=== PATIENT | female | born 1955 | race Caucasian/White ===

== ENCOUNTER 2017-03-05 09:00 | Outpatient (CLI) | payer OTHER ==
[~2017-03-05] VITALS: Ht 162.6 cm; Wt 120.2 kg
[~2017-03-05 09:00] MED LIST: AMLO5TAB2 PO; B.AN1CAP PO; BETA1POW PO; CHOL100045 PO; CINN500C2 PO; CINN500C7 PO; CINNAMON PO; CITA20TA4 PO; FAMO1TAB21 PO; GINK60CA13 PO; HYDR-34 PO; HYDR1TAB66 PO; HYDR1TAB86 PO; LACT1CAP57 PO; MULT-608 PO; OMG1KC PO; OXYC-12 PO; TRIA1CAP4 PO; TURM500C PO; UBID100C8 PO; [UNRECOGNIZED DRUG - OTHER] PO
== END 2017-03-05 10:44 ==
LOC: PREOP 09:00
PROVIDERS: ATTEND Surgery
DX: Z01.818 Encounter for other preprocedural examination (principal); Z12.11 Encounter for screening for malignant neoplasm of colon

== ENCOUNTER 2017-03-06 10:57 | Day surgery (SDC) | payer OTHER ==
[~2017-03-06] VITALS: Ht 162.6 cm; Wt 120.2 kg
[2017-03-06] MEDS ORDERED: NS IV 1000 ML 1,000 ML IV STA (11:05)
[2017-03-06] MEDS ORDERED: NS IV 1000 ML 1,000 ML ONE (11:06)
[2017-03-06 11:23] VITALS: BP 135/66
--- NOTE | 2017-03-06 11:42 | Progress Note-Pre Operative ---
Pre-Operative Progress Note H&P Reviewed The H&P was reviewed, patient examined and no changes noted. Date H&P Reviewed: March 06, 2017 Time H&P Reviewed: 11:40 Pre-Operative Diagnosis: screening colonoscopy AARON PIKE DO March 06, 2017 11:42
[2017-03-06] MEDS ORDERED: proPOfol 200 MG/20 ML (DIPRIVAN) VIAL IV ONE (12:04)
--- NOTE | 2017-03-06 12:39 | Endoscopy Discharge Instruct ---
Endo Procedure/Findings Findings 1.: Diverticulosis 2.: Internal Hemorrhoids Discharge Instructions - Activity: You might feel a little sleepy until tomorrow. This is due to the medicine you received to relax you. Until tomorrow, you should: NOT drive a car, operate machinery or power tools. NOT drink any alcoholic beverages. NOT make any important decisions or sign importortant papers. Do not return to work until tomorrow, unless otherwise instructed. Resume previous activities tomorrow. Diet: Start by taking liquids. If you tolerate liquids, advance to solid food. Make appointment for one week, Instructions: 1.: Colonscopy in 10 years Notify Physician - If you experience excessive bleeding, unusual abdominal pain, fever, or chest pain, contact your doctor immediately. Phone number [phone] Follow-Up: - I have received and understand the above instructions and will call my doctor if I have any further questions. Patient Signature Date Nurse Signature Other (Relationship) AARON PIKE DO March 06, 2017 12:39
[2017-03-06 12:40] VITALS: BP 137/66
--- NOTE | 2017-03-06 12:40 | Progress Note-Post Operative ---
Post-Operative Progess Note Surgeon (s)/Director Chemistry (s) Surgeon AARON PIKE DO Director Chemistry: none Pre-Operative Diagnosis screening colonoscopy Post-Operative Diagnosis Diverticula Int Hemorrhoids Procedure & Operative Findings Date of Procedure 03/06/17 Procedure Preformed/Findings colonoscopy Anesthesia Type IV Sedation Estimated Blood Loss Estimated blood loss (mL): none Specimens/Packing Specimens Removed none Packing: none AARON PIKE DO March 06, 2017 12:40
--- NOTE | 2017-03-06 12:56 | OPERATIVE REPORT ---
DATE OF SERVICE: 03/06/2017 PREOPERATIVE DIAGNOSIS: Screening colonoscopy. POSTOPERATIVE DIAGNOSES: 1. Diverticula. 2. Internal hemorrhoids. PROCEDURE: Colonoscopy. SURGEON: Dr. Anderson. HOT TAMALE MAN: None. ANESTHESIA: IV sedation by the DIRECTOR GLOBAL DEVELOPMENT. SPECIMENS: None. BLOOD LOSS: None. FLUIDS: Per anesthesia. POSTOPERATIVE CONDITION: Stable. INDICATIONS FOR PROCEDURE: The patient is a 61-year-old female who needed a screening colonoscopy. FINDINGS: The patient had some diverticula, large ones in the descending and sigmoid colon, but had them all throughout the colon including transverse colon and right colon. She also had some internal hemorrhoids, probably grade 1. PROCEDURE NOTE: After informed consent was obtained, the patient was brought to the endoscopy suite, placed in the bed in the left lateral lithotomy decubitus position. She was administered IV sedation during the case and vitals monitored the entire time by the DIRECTOR GLOBAL DEVELOPMENT. The scope was inserted and pushed all the way up to about 160 cm, on the way in noted diverticula and took a picture of these. Pushed all the way to the cecum, took a picture of the appendiceal orifice, then able to get into the terminal ileum, took a picture and then slowly withdrew the scope, insufflating, looked circumferentially at the craig, looking at the cecum then up the ascending colon to the hepatic flexure and then down the transverse colon to the splenic flexure against a small diverticulum on the ascending colon and the transverse colon. We got to the hepatic flexure and then down the descending colon and into the sigmoid, again saw a large diverticulum throughout here. Continued down through here into the rectum, on retroflexion of the rectal vault saw some internal hemorrhoids; took a picture of these and then removed the scope. The patient tolerated the procedure and she was transferred to the recovery room in stable condition. Job ID: [id number] DocumentID: [id number] Dictated Date: 03/06/2017 12:36:04 Tool Technician Date: 03/06/2017 12:56:05 Dictated By: AARON ANDERSON DO
[2017-03-06 13:05] VITALS: BP 138/75
[2017-03-06 13:59] VITALS: BP 138/75
== END 2017-03-06 13:20 | disposition home or self-care (01) ==
LOC: ENDO 10:57
PROVIDERS: ATTEND Surgery
DX: Z12.11 Encounter for screening for malignant neoplasm of colon (principal); K57.32 Diverticulitis of large intestine without perforation or abscess without bleeding; K64.8 Other hemorrhoids; I25.10 Atherosclerotic heart disease of native coronary artery without angina pectoris; I10 Essential (primary) hypertension; E78.4 Other hyperlipidemia; Z79.899 Other long term (current) drug therapy

== ENCOUNTER → 2017-08-19 | Outpatient (CLI) | payer OTHER ==
--- NOTE | 2017-08-20 19:40 | Diagnostic Imaging Report ---
Bilateral screening mammogram 2D views with tomosynthesis The current study was also evaluated with a Computer Aided Detection (CAD) system. Indication: Screening. No current complaints stated on the questionnaire. COMPARISON: 08/14/16 FINDINGS: The breasts are composed of scattered fibroglandular densities. Stable intramammary lymph nodes in the upper outer aspect of the left breast is seen. Allowing for technique and positional differences, no suspicious change is seen. IMPRESSION: No significant change. ACR BI-RADS Category 2: Benign findings. Result letter will be mailed to the patient. Note: At least 10% of breast cancer is not imaged by mammography. Dictated by: Dictated on workstation # [id number]
== END ==
LOC: RAD 14:32
PROVIDERS: ATTEND Internal Medicine
DX: Z12.31 Encounter for screening mammogram for malignant neoplasm of breast (principal)
CPT/HCPCS: 77067

== ENCOUNTER → 2018-09-08 | Outpatient (CLI) | payer BC, OTHER ==
[~2018-09-08] MED LIST changes: -AMLO5TAB2 PO; +AMLO5TAB7 PO
--- NOTE | 2018-09-08 13:59 | Diagnostic Imaging Report ---
INDICATION: Routine screening. COMPARISON: 08/19/2017 and 08/14/2016. TECHNIQUE: 2D and 3D bilateral screening mammography was performed with CAD. FINDINGS: Scattered fibroglandular densities are identified bilaterally. A benign nodule in the upper outer left breast appears stable. No dominant mass or malignant-appearing microcalcifications are seen. The axillae are unremarkable. IMPRESSION: No mammographic features suspicious for malignancy are identified. ACR BI-RADS Category 2: Benign findings. Result letter will be mailed to the patient. Note: At least 10% of breast cancer is not imaged by mammography. Dictated by: Dictated on workstation # [id number]
== END ==
LOC: RAD 08:32
PROVIDERS: ATTEND Internal Medicine
DX: Z12.31 Encounter for screening mammogram for malignant neoplasm of breast (principal)
CPT/HCPCS: 77067

== ENCOUNTER 2018-11-02 20:50 | Outpatient (CLI) | payer BC | END 2018-11-03 06:00 | disposition home or self-care (01) | LOC: SLEEP 20:50 | PROVIDERS: ATTEND Nurse Practitioner Family | DX: G47.33 Obstructive sleep apnea (adult) (pediatric) (principal); G47.10 Hypersomnia, unspecified | CPT/HCPCS: 95810 ==

== ENCOUNTER 2018-12-03 20:29 | Outpatient (CLI) | payer BC ==
[~2018-12-03 20:29] MED LIST changes: -AMLO5TAB7 PO; +AMLO5TAB9 PO
== END 2018-12-04 06:22 | disposition home or self-care (01) ==
LOC: SLEEP 20:29
PROVIDERS: ATTEND Otolaryngology Otolaryngology/Facial Plastic Surgery
DX: G47.33 Obstructive sleep apnea (adult) (pediatric) (principal)
CPT/HCPCS: 95811

== ENCOUNTER → 2019-01-04 | Outpatient (CLI) | payer BC ==
--- NOTE | 2019-01-04 19:01 | Diagnostic Imaging Report ---
PROCEDURE: US Renal Bilateral. TECHNIQUE: Multiple Real-time grayscale images were obtained over the kidneys in various projections bilaterally. INDICATION: Chronic kidney disease. FINDINGS: The left kidney is surgically absent. The right kidney measures 11.3 x 6.2 x 5.4 cm. There is normal renal cortical thickness and echogenicity. There is no hydronephrosis, calculus, or mass. The bladder is normal in appearance. The IVC is not seen. IMPRESSION: Unremarkable sonographic appearance of the right kidney. Dictated by: Dictated on workstation # [id number]
== END ==
LOC: RAD 13:05
PROVIDERS: ATTEND Internal Medicine Nephrology
DX: I12.9 Hypertensive chronic kidney disease with stage 1 through stage 4 chronic kidney disease, or unspecified chronic kidney disease (principal); E11.22 Type 2 diabetes mellitus with diabetic chronic kidney disease; N18.4 Chronic kidney disease, stage 4 (severe); E11.65 Type 2 diabetes mellitus with hyperglycemia; R60.0 Localized edema; Z90.5 Acquired absence of kidney
CPT/HCPCS: 76770

== ENCOUNTER → 2019-10-04 | Outpatient (CLI) | payer BC ==
--- NOTE | 2019-10-04 13:00 | Diagnostic Imaging Report ---
INDICATION: Screening. The current study was also evaluated with a Computer Aided Detection (CAD) system. 3-D Tomographic imaging was also performed. Comparison made with prior examinations of 09/08/2018, 08/19/2017, and 08/14/2016. FINDINGS: There are scattered fibroglandular densities bilaterally. There are benign lymph nodes in the axilla. There are scattered benign-type calcifications. There is no dominant mass, spiculated lesion, or suspicious calcification identified. The skin and nipples are unremarkable. IMPRESSION: Benign. ACR BI-RADS Category 2: Benign findings. Result letter will be mailed to the patient. Note: At least 10% of breast cancer is not imaged by mammography. Dictated by: Dictated on workstation # [id number]
== END ==
LOC: RAD 11:07
PROVIDERS: ATTEND Internal Medicine
DX: Z12.31 Encounter for screening mammogram for malignant neoplasm of breast (principal)
CPT/HCPCS: 77067

== ENCOUNTER 2019-11-30 05:38 | Outpatient (CLI) | payer BC ==
[~2019-11-30] VITALS: Ht 162 cm; Wt 118.0 kg
[2019-11-30] MEDS ORDERED: FURO20TA4 PO (14:44)
[2019-11-30] MEDS ORDERED: LISI10TA2 PO (14:44)
[2019-11-30] MEDS ORDERED: ATOR20TA66 PO (14:44)
[2019-11-30] MEDS ORDERED: MIRA50TA PO (14:44)
[2019-11-30] MEDS ORDERED: CITA20TA9 PO (14:44)
== END 2019-11-30 14:51 | disposition home or self-care (01) ==
LOC: PREOP 05:38
PROVIDERS: ATTEND Specialist
DX: Z01.818 Encounter for other preprocedural examination (principal)

== ENCOUNTER 2019-12-03 05:56 | Day surgery (SDC) | payer BC ==
[~2019-12-03] VITALS: Ht 162 cm; Wt 118.0 kg
[~2019-12-03 05:56] MED LIST changes: +ATOR20TA66 PO; +CITA20TA9 PO; +FURO20TA4 PO; +LISI10TA2 PO; +MIRA50TA PO
[2019-12-03] MEDS ORDERED: LIDOCAINE PF 1% 2 ML VIAL IR PRN (06:15)
[2019-12-03] MEDS ORDERED: POVIDONE (BETADINE) OPHTH SOLN 5% 30 ML OP ONE (06:15)
[2019-12-03] MEDS ORDERED: MOXIFLOXACIN OPHTH SOLN 5 MG/ML 0.3 ML SYRINGE OP ONE (06:15)
[2019-12-03] MEDS ORDERED: TIMOLOL MALEATE 0.5% 5 ML (TIMOPTIC) BTL OU PRN (06:15)
[2019-12-03] MEDS: TETRACAINE 0.5% OPHTH SOLN 4 ML BTL (SINGLE DOSE ONLY) OU PRN ×4 (06:15→06:40)
[2019-12-03 06:20] VITALS: BP 169/82
[2019-12-03] MEDS: PHENYLEPHRINE 10% OPHTH (NEO-SYN) 5 ML BTL OU SCH ×3 (06:27→06:40)
[2019-12-03] MEDS: CYCLOPENTOLATE 1% (CYCLOGYL) 2 ML DROPS OP SCH ×3 (06:27→06:40)
[2019-12-03] MEDS ORDERED: acetaZOLAMIDE ER 500 MG CAP (DIAMOX SEQUELS) PO ONE (07:30)
--- NOTE | 2019-12-03 07:30 | Ophthalmologist Pre-Op Note ---
Pre-Operative Progress Note H&P Reviewed The H&P was reviewed, patient examined and no changes noted. Date H&P Reviewed: Dec 03, 2019 Time H&P Reviewed: 07:30 Pre-Op Dx Cataract, Right Eye RIRI MILLARD MD Dec 03, 2019 07:30
[2019-12-03] MEDS ORDERED: MIDAZOLAM 2 MG/2 ML (VERSED) VIAL ONE (07:31)
--- NOTE | 2019-12-03 07:53 | Ophthalmology Operative Report ---
Cataract removal/placement IOL PREOPERATIVE DIAGNOSIS: Cataract Right Eye POSTOPERATIVE DIAGNOSIS: Cataract Right Eye PROCEDURE: Cataract removal and placement of posterior chamber implant, right eye SURGEON: Jerad Millard ANESTHESIA: Topical with sedation COMPLICATIONS: None ESTIMATED BLOOD LOSS: Minimal DESCRIPTION OF PROCEDURE: After proper informed consent was obtained, the patient, a 64 female, was taken to the Operating Room and the right eye was anesthetized with tetracaine. The right eye was then prepped and draped in the usual manner. A wire lid speculum was placed. A paracentesis was made at the left hand position. Preservative free lidocaine was injected into the anterior chamber followed by viscoelastic. A clear corneal incision was made in the temporal position. A capsulorrhexis was preformed and the central nuclear and cortical material were removed. The posterior capsule was polished and Sammy 22.5 AU00T0 IOL was placed into the capsular bag. The residual viscoelastic was aspirated and balanced saline solution was injected into the anterior chamber. Moxifloxacin was injected into the anterior chamber. The wound was checked and found to be water tight. The patient tolerated the procedure well without complications. JERAD MILLARD MD Dec 03, 2019 07:53
[2019-12-03 08:00] VITALS: BP 175/85
--- NOTE | 2019-12-03 14:37 | Anesthesia-General Post-Op ---
MAC Patient Condition Mental Status/LOC: Same as Preop Cardiovascular: Satisfactory Nausea/Vomiting: Absent Respiratory: Satisfactory Pain: Controlled Complications: Absent Post Op Complications Complications None Follow Up Care/Instructions Patient Instructions None needed. Anesthesiology Discharge Order Discharge Order Patient was seen this morning after the procedure and she was doing well, no complaints, stable vital signs, no apparent adverse anesthesia problems. ABIMAEL MCDONALD DO Dec 03, 2019 14:37
== END 2019-12-03 08:00 | disposition home or self-care (01) ==
LOC: SDC 05:56
PROVIDERS: ATTEND Specialist
DX: E11.40 Type 2 diabetes mellitus with diabetic neuropathy, unspecified (principal); H25.11 Age-related nuclear cataract, right eye; K21.9 Gastro-esophageal reflux disease without esophagitis; G47.33 Obstructive sleep apnea (adult) (pediatric); I10 Essential (primary) hypertension; E78.5 Hyperlipidemia, unspecified; E78.00 Pure hypercholesterolemia, unspecified; F32.9 Major depressive disorder, single episode, unspecified; Z99.89 Dependence on other enabling machines and devices; Z79.899 Other long term (current) drug therapy; Z96.651 Presence of right artificial knee joint; Z96.652 Presence of left artificial knee joint; Z90.49 Acquired absence of other specified parts of digestive tract; Z80.0 Family history of malignant neoplasm of digestive organs

== ENCOUNTER 2019-12-17 06:23 | Day surgery (SDC) | payer BC ==
[~2019-12-17] VITALS: Ht 162 cm; Wt 118.0 kg
[2019-12-17 06:15] VITALS: BP 147/78
[2019-12-17] MEDS ORDERED: POVIDONE (BETADINE) OPHTH SOLN 5% 30 ML OP ONE (06:30)
[2019-12-17] MEDS ORDERED: LIDOCAINE PF 1% 2 ML VIAL IR PRN (06:30)
[2019-12-17] MEDS ORDERED: TIMOLOL MALEATE 0.5% 5 ML (TIMOPTIC) BTL OU PRN (06:30)
[2019-12-17] MEDS ORDERED: MOXIFLOXACIN OPHTH SOLN 5 MG/ML 0.3 ML SYRINGE OP ONE (06:30)
[2019-12-17] MEDS: TETRACAINE 0.5% OPHTH SOLN 4 ML BTL (SINGLE DOSE ONLY) OU PRN ×4 (06:31→06:47)
[2019-12-17] MEDS: PHENYLEPHRINE 10% OPHTH (NEO-SYN) 5 ML BTL OU SCH ×3 (06:38→06:47)
[2019-12-17] MEDS: CYCLOPENTOLATE 1% (CYCLOGYL) 2 ML DROPS OP SCH ×3 (06:38→06:47)
[2019-12-17] MEDS ORDERED: MIDAZOLAM 2 MG/2 ML (VERSED) VIAL ONE (06:51)
--- NOTE | 2019-12-17 06:59 | Ophthalmologist Pre-Op Note ---
Pre-Operative Progress Note H&P Reviewed The H&P was reviewed, patient examined and no changes noted. Date H&P Reviewed: Dec 17, 2019 Time H&P Reviewed: 06:59 Pre-Op Dx Cataract, Left Eye RIRI MILLARD MD Dec 17, 2019 06:59
--- NOTE | 2019-12-17 07:26 | Ophthalmology Operative Report ---
Cataract removal/placement IOL PREOPERATIVE DIAGNOSIS: Cataract Left Eye POSTOPERATIVE DIAGNOSIS: Cataract Left Eye PROCEDURE: Cataract removal and placement of posterior chamber implant, left eye SURGEON: Jerad Millard ANESTHESIA: Topical with sedation COMPLICATIONS: None ESTIMATED BLOOD LOSS: Minimal DESCRIPTION OF PROCEDURE: After proper informed consent was obtained, the patient, a 64 female, was taken to the Operating Room and the left eye was anesthetized with tetracaine. The left eye was then prepped and draped in the usual manner. A wire lid speculum was placed. A paracentesis was made at the left hand position. Preservative free lidocaine was injected into the anterior chamber followed by viscoelastic. A clear corneal incision was made in the temporal position. A capsulorrhexis was preformed and the central nuclear and cortical material were removed. The posterior capsule was polished and an Sammy 26.0 AU00T0 was placed into the capsular bag. The residual viscoelastic was aspirated and balanced saline solution was injected into the anterior chamber. Moxifloxacin was injected into the anterior chamber. The wound was checked and found to be water tight. The patient tolerated the procedure well without complications. JERAD MILLARD MD Dec 17, 2019 07:26
[2019-12-17] MEDS ORDERED: acetaZOLAMIDE ER 500 MG CAP (DIAMOX SEQUELS) PO ONE (07:30)
[2019-12-17 07:33] VITALS: BP 152/78
--- NOTE | 2019-12-17 14:22 | Anesthesia-General Post-Op ---
MAC Patient Condition Mental Status/LOC: Same as Preop Cardiovascular: Satisfactory Nausea/Vomiting: Absent Respiratory: Satisfactory Pain: Controlled Complications: Absent Post Op Complications Complications None Follow Up Care/Instructions Patient Instructions None needed. Anesthesiology Discharge Order Discharge Order Patient is doing well, no complaints, stable vital signs, no apparent adverse anesthesia problems. No complications reported per nursing. BERNARDO ADKINS CRNA Dec 17, 2019 14:22
== END 2019-12-17 07:33 | disposition home or self-care (01) ==
LOC: SDC 06:23
PROVIDERS: ATTEND Specialist
DX: E11.36 Type 2 diabetes mellitus with diabetic cataract (principal); H25.12 Age-related nuclear cataract, left eye; I10 Essential (primary) hypertension; G47.33 Obstructive sleep apnea (adult) (pediatric); K21.9 Gastro-esophageal reflux disease without esophagitis; E78.5 Hyperlipidemia, unspecified; E78.00 Pure hypercholesterolemia, unspecified; F32.9 Major depressive disorder, single episode, unspecified; Z99.89 Dependence on other enabling machines and devices; Z79.899 Other long term (current) drug therapy; Z80.0 Family history of malignant neoplasm of digestive organs

== ENCOUNTER → 2019-12-28 | Outpatient (CLI) | payer BC ==
[~2019-12-28] MED LIST changes: +CATHETER FLUSH 10 ML SYR IV PRN; +HOLD METFORMIN - RECEIVED CONTRAST 20 ML VIAL IV SCH; +IOHEXOL 350 MG/ML 100 ML (OMNIPAQUE 350) VIAL IV ONE; +NS 100 ML (IVPB) BAG IV ONE
--- NOTE | 2019-12-28 15:01 | Diagnostic Imaging Report ---
PROCEDURE: CT abdomen and pelvis with and without contrast. TECHNIQUE: Precontrast acquisitions were acquired through the abdomen and pelvis. Multiple contiguous axial images were obtained through the abdomen and pelvis after the administration of intravenous contrast. Auto Exposure Controls were utilized during the CT exam to meet ALARA standards for radiation dose reduction. INDICATION: Kidney disease, hematuria, hyperlipidemia. COMPARISON: There are no prior studies available for comparison. FINDINGS: The left kidney is not clearly evident. There are two calcified linear soft tissue densities measuring approximately 3 cm in length in the left renal fossa. These could represent a remnant of the left kidney.. If previous studies are available, they would be helpful for comparison. The right kidney is normal in size and does show excretion of contrast. There is no sign of a solid renal mass or for nephrolithiasis. The liver, spleen, pancreas and right adrenal gland are unremarkable. Left adrenal gland is not well visualized. The gallbladder is surgically absent. The stomach is partially filled with fluid and gas and difficult to assess. There is a large 4.4 x 5.9 cm soft tissue density in the diaphragmatic hiatus. Whether this is related to a hiatal hernia or paraesophageal hernia is not certain. If further study is desired, then an esophagram would be recommended. There is diverticulosis of the sigmoid and descending colon but there is no evidence for acute diverticulitis. The urinary bladder and uterus are grossly unremarkable. The appendix was not particularly well visualized but there are no indirect signs of acute appendicitis. There is no pelvic mass or free fluid collection evident either. There are surgical clips along the anterior abdominal wall near midline. These may be related to a prior hernia repair procedure. There is no sign of recurrent hernia in this area. The lung bases are clear. The heart is enlarged. The bone windows show no evidence for fracture or for destructive lesion. IMPRESSION: 1. There is no acute abnormality of the abdomen or pelvis. 2. The left kidney cannot be identified and is most likely surgically absent. The left adrenal gland may also be surgically absent. Correlation with patient's surgical history recommended. 3. The linear partially calcified soft tissue densities in the left renal fossa may be remnants of the left kidney.. If previous studies are available, they would be helpful for comparison. If there are no prior exams to demonstrate that these findings are stable, then at short-term (3 month) follow-up CT abdomen/pelvis exam should be obtained. 4. A large portion of the stomach has extended through the diaphragmatic hiatus. Whether this is due to a hiatal hernia or paraesophageal hernia is not certain. Recommendations as above. 5. There is diverticulosis of the sigmoid and descending colon without evidence for acute diverticulitis. 6. The gallbladder is surgically absent. There has also been repair of the anterior abdominal wall. Dictated by: Dictated on workstation # [id number]
== END ==
LOC: RAD 13:00
PROVIDERS: ATTEND Internal Medicine Hematology & Oncology
DX: N28.9 Disorder of kidney and ureter, unspecified (principal); E78.2 Mixed hyperlipidemia; K57.30 Diverticulosis of large intestine without perforation or abscess without bleeding; R31.9 Hematuria, unspecified; Z90.49 Acquired absence of other specified parts of digestive tract
CPT/HCPCS: 74178

== ENCOUNTER 2020-01-21 10:29 | Outpatient (RCR) | payer BC ==
[2019-12-23 16:01] LABS: BASOPHILS % (AUTO) 1 % (0-10); EOSINOPHILS # (AUTO) 0.2 10^3/uL (0.0-0.3); EOSINOPHILS % (AUTO) 2 % (0-10); HEMATOCRIT 35 % (35-52); HEMOGLOBIN 11.6 G/DL (11.5-16.0); LYMPHOCYTES # (AUTO) 2.1 X 10^3 (1.0-4.0); LYMPHOCYTES % (AUTO) 26 % (12-44); MEAN CORPUSCULAR HEMOGLOBIN 31 PG (25-34); MEAN CORPUSCULAR HGB CONC 34 G/DL (32-36); MEAN CORPUSCULAR VOLUME 94 FL (80-99); MEAN PLATELET VOLUME 9.6 FL (7.4-10.4); MONOCYTES # (AUTO) 0.7 X 10^3 (0.0-1.0); MONOCYTES % (AUTO) 9 % (0-12); NEUTROPHILS % (AUTO) 62 % (42-75); PLATELET COUNT 291 10^3/uL (130-400)
[2019-12-23 16:19] LABS: ALANINE AMINOTRANSFERASE < 6 U/L (0-55); ALKALINE PHOSPHATASE 120 U/L (40-136); BILIRUBIN,TOTAL 0.5 MG/DL (0.1-1.0); BUN/CREATININE RATIO 12; CALCIUM 9.1 MG/DL (8.5-10.1); CARBON DIOXIDE 29 MMOL/L (21-32); CHLORIDE 104 MMOL/L (98-107); CREATININE SERUM 1.47 MG/DL (0.60-1.30); GFR ESTIMATED 36; GLUCOSE 173 MG/DL (70-105); POTASSIUM 4.3 MMOL/L (3.6-5.0); SODIUM 139 MMOL/L (135-145)
[~2020-01-21 10:29] MED LIST changes: -CATHETER FLUSH 10 ML SYR IV PRN; -HOLD METFORMIN - RECEIVED CONTRAST 20 ML VIAL IV SCH; -IOHEXOL 350 MG/ML 100 ML (OMNIPAQUE 350) VIAL IV ONE; -NS 100 ML (IVPB) BAG IV ONE
== END 2020-03-22 | disposition home or self-care (01) ==
LOC: ONC 10:29
PROVIDERS: ATTEND Internal Medicine Hematology & Oncology
DX: D64.9 Anemia, unspecified (principal); R76.8 Other specified abnormal immunological findings in serum; R31.9 Hematuria, unspecified; N28.9 Disorder of kidney and ureter, unspecified; I65.23 Occlusion and stenosis of bilateral carotid arteries; E78.2 Mixed hyperlipidemia; I25.10 Atherosclerotic heart disease of native coronary artery without angina pectoris; K57.30 Diverticulosis of large intestine without perforation or abscess without bleeding; I10 Essential (primary) hypertension; Z79.84 Long term (current) use of oral hypoglycemic drugs; Z79.899 Other long term (current) drug therapy; E11.9 Type 2 diabetes mellitus without complications; I12.9 Hypertensive chronic kidney disease with stage 1 through stage 4 chronic kidney disease, or unspecified chronic kidney disease; N18.3 Chronic kidney disease, stage 3 (moderate); Z96.653 Presence of artificial knee joint, bilateral
CPT/HCPCS: 80053; 82570; 82784; 83883; 84155; 84156; 84165; 84166; 85025; 99213; 99214

== ENCOUNTER → 2020-10-05 | Outpatient (CLI) | payer BC ==
[~2020-10-05] MED LIST changes: +AMLO-250 PO; -AMLO5TAB9 PO
--- NOTE | 2020-10-05 13:12 | Diagnostic Imaging Report ---
INDICATION: Routine screening. COMPARISON is made with prior mammogram from 10/04/2019. 2-D and 3-D bilateral screening mammography was performed with CAD. Scattered fibroglandular densities are identified bilaterally. A circumscribed nodule in the upper outer left breast is noted at posterior depth consistent with an intraparenchymal lymph node. No spiculated mass or malignant appearing microcalcifications are seen. Axillae are unremarkable. IMPRESSION: BI-RADS Category 2 No mammographic features suspicious for malignancy are identified. ACR BI-RADS Category 2: Benign findings. Result letter will be mailed to the patient. Note: At least 10% of breast cancer is not imaged by mammography. Dictated by: Dictated on workstation # [id number]
== END ==
LOC: RAD 10:50
PROVIDERS: ATTEND Internal Medicine
DX: Z12.31 Encounter for screening mammogram for malignant neoplasm of breast (principal)
CPT/HCPCS: 77063; 77067

== ENCOUNTER → 2021-10-10 | Outpatient (CLI) | payer BC ==
[~2021-10-10] MED LIST changes: -LISI10TA2 PO; +LISI10TA25 PO
--- NOTE | 2021-10-10 13:16 | Diagnostic Imaging Report ---
INDICATION: Routine screening. COMPARISON: 10/05/2020 and 10/04/2019. TECHNIQUE: 2D and 3D bilateral screening mammography was performed with CAD. FINDINGS: Scattered fibroglandular densities are identified bilaterally. A benign nodule in the outer left breast at posterior depth is stable. No spiculated mass or malignant-appearing microcalcifications are seen. The left MLO view does have some motion artifact and should be repeated. The axillae are unremarkable. IMPRESSION: The left MLO view does have motion artifact and should be repeated. The study is otherwise unremarkable. Dictated by: Dictated on workstation # [id number]
== END ==
LOC: RAD 09:30
PROVIDERS: ATTEND Internal Medicine
DX: Z12.31 Encounter for screening mammogram for malignant neoplasm of breast (principal); I50.9 Heart failure, unspecified
CPT/HCPCS: 77063; 77067; 93306

== ENCOUNTER → 2021-10-17 | Outpatient (CLI) | payer BC ==
--- NOTE | 2021-10-17 15:46 | Diagnostic Imaging Report ---
INDICATION: Routine screening. COMPARISON: 10/05/2020 and 10/04/2019. TECHNIQUE: Unilateral left 2D and 3D screening mammography was performed with CAD. FINDINGS: A repeat left MLO view was performed. No motion artifact is identified on the current study. A benign nodule in the upper outer left breast is noted and appears stable. There is no mass or malignant-appearing microcalcifications. IMPRESSION: No mammographic features suspicious for malignancy are identified. ACR BI-RADS Category 2: Benign findings. Result letter will be mailed to the patient. Note: At least 10% of breast cancer is not imaged by mammography. Dictated by: Dictated on workstation # [id number]
== END ==
LOC: RAD 15:00
PROVIDERS: ATTEND Internal Medicine
DX: Z12.31 Encounter for screening mammogram for malignant neoplasm of breast (principal)
CPT/HCPCS: 77063

== ENCOUNTER → 2021-11-05 | Outpatient (CLI) | payer BC, MEDICARE ==
--- NOTE | 2021-11-05 09:25 | Diagnostic Imaging Report ---
INDICATION: Septic pulmonary embolism. Patient was administered 5.5 mCi technetium 99m MAA intravenously and imaging of the chest was performed in multiple obliquities. No ventilation scan was performed. There is homogeneous perfusion to both lungs. No pleural-based perfusion defects are identified. IMPRESSION: Normal perfusion lung scan. Dictated by: Dictated on workstation # [id number]
--- NOTE | 2021-11-05 10:02 | Diagnostic Imaging Report ---
INDICATION: Short of breath EXAMINATION: Two-view chest 11/05/2021 COMPARISON: 07/16/2015 FINDINGS: Two views of the chest There is a small hiatal hernia. The heart is prominent. Pulmonary vasculature unremarkable. Vague patchy airspace opacities at the lung base is likely atelectasis. Early infiltrate not excluded; correlate with symptoms. Remaining lungs appear clear. There is no pneumothorax. There are no effusions. IMPRESSION: 1. Vague scattered airspace opacities in the lower lungs possibly atelectasis with early infiltrate not excluded. Correlate with symptoms. Otherwise chronic changes as above. Dictated by: Dictated on workstation # [id number]
== END ==
LOC: CARD 09:00
PROVIDERS: ATTEND Internal Medicine
DX: I26.90 Septic pulmonary embolism without acute cor pulmonale (principal); R91.8 Other nonspecific abnormal finding of lung field
CPT/HCPCS: 71046; 78580; A9540

== ENCOUNTER → 2021-11-30 | Outpatient (CLI) | payer MEDICARE ==
[~2021-11-30] VITALS: Ht 162 cm; Wt 127.0 kg
[~2021-11-30] MED LIST changes: +REGADENOSON 0.4 MG/5 ML SYR (LEXISCAN) IV ONE
[2021-11-30] MEDS: CATHETER FLUSH 10 ML SYR IV PRN ×2 (07:35→08:43)
[2021-11-30 08:25] VITALS: BP 219/100
== END ==
LOC: CARD 07:45
PROVIDERS: ATTEND Internal Medicine Cardiovascular Disease
DX: R06.09 Other forms of dyspnea (principal)
CPT/HCPCS: 78452; 93017; A9502

== ENCOUNTER 2022-01-01 11:00 | Day surgery (SDC) | payer MEDICARE ==
[~2022-01-01] VITALS: Ht 165.1 cm; Wt 126.0 kg
[2022-01-01] VITALS (21 sets, daily range): BP systolic 84–174; BP diastolic 53–80
[2022-01-01 08:33] LABS: HEMATOCRIT 36 % (35-52); HEMOGLOBIN 11.9 g/dL (11.5-16.0); MEAN CORPUSCULAR HEMOGLOBIN 31 pg (25-34); MEAN CORPUSCULAR HGB CONC 33 g/dL (32-36); MEAN CORPUSCULAR VOLUME 95 fL (80-99); MEAN PLATELET VOLUME 9.7 fL (9.0-12.2); PLATELET COUNT 315 10^3/uL (130-400); WHITE BLOOD COUNT 8.1 10^3/uL (4.3-11.0)
[2022-01-01 08:52] LABS: ALANINE AMINOTRANSFERASE < 6 U/L (0-55); ALBUMIN 4.1 GM/DL (3.2-4.5); ALKALINE PHOSPHATASE 125 U/L (40-136); BILIRUBIN,TOTAL 0.6 MG/DL (0.1-1.0); BUN/CREATININE RATIO 13; CALCIUM 9.1 MG/DL (8.5-10.1); CARBON DIOXIDE 22 MMOL/L (21-32); CHLORIDE 104 MMOL/L (98-107); CHOLESTEROL 173 MG/DL (< 200); GFR ESTIMATED 35; GLUCOSE 168 MG/DL (70-105); HDL CHOLESTEROL 50 MG/DL (40-60); POTASSIUM 4.4 MMOL/L (3.6-5.0); SODIUM 138 MMOL/L (135-145); TOTAL PROTEIN 7.3 GM/DL (6.4-8.2); TRIGLYCERIDES 103 MG/DL (<150); VLDL CHOLESTEROL 21 MG/DL (5-40)
[~2022-01-01 11:00] MED LIST changes: +ACET325T38 PO; +AMLO-251 PO; +ASPIRIN 81 MG CHEW (CHILDREN'S ASA) ONE; +CARV25TA PO; +CHOL-34 PO; +CLOP75TA28 PO; +CLOPIDOGREL 300 MG (PLAVIX) TABLET PO ONE; +EPTIFIBATIDE BOLUS 0 ML IV ONE; +EPTIFIBATIDE BOLUS 30 ML IV ONE; +GLYB1.253 PO; +HEParin (CATH LAB) 2,000 ML IV ONE; +HEParin 1000 UNIT/ML (10ML VIAL) FOR BOLUS ONE; +IRON18TA PO; +LIDOCAINE 1% INJ 50 ML (XYLOCAINE) VIAL ONE; +LISI40TA9 PO; +MIDAZOLAM 5 MG/5 ML (VERSED) VIAL ONE; +NS IV 1000 ML 1,000 ML IV SCH; +NS IV 1000 ML 1,000 ML ONE; +POLY30DR6 OU; -REGADENOSON 0.4 MG/5 ML SYR (LEXISCAN) IV ONE; +fentaNYL INJ 100 MCG/2 ML AMP ONE
--- NOTE | 2022-01-01 11:01 | Cardiac Procedure Note-CS/ASA ---
Pre-Procedure Note Pre-Op Procedure Note H&P Reviewed The H&P was reviewed, patient examined and no changes noted. Date H&P Reviewed: Jan 01, 2022 Time H&P Reviewed: 09:30 Conscious Sedation Pre-Proced Time 09:30 ASA Score 3 For ASA 3 and 4: Consider anesthesia and medical clearance. Also, for patients with a history of failed moderate sedation consider anesthesia. Airway Lungs Heart ASA score ASA 1: a normal healthy patient ASA 2: a patient with a mild systemic disease (mid diabetes, controlled hypertension, obesity ASA 3: a patient with a severe systemic disease that limits activity (angina, COPD, prior Myocardial infarction) ASA 4: a patient with an incapacitating disease that is a constant threat to life (CHF, renal failure) ASA 5: a moribund patient not expected to survive 24 hrs. (ruptured aneurysm) ASA 6: a declared brain- patient whose organs are being harvested. For emergent operations, add the letter E after the classification Mallampati Classification Grade 2 Sedation Plan Analgesia, Amnesia, Plan communicated to team members, Discussed options with patient/fam, Discussed risks with patient/fam The patient is an appropriate candidate to undergo the planned procedure, sedation, and anesthesia. The patient immediately re-assessed prior to indication. SAQIB GRAY MD FACP FAC CCDS Jan 01, 2022 11:01
[2022-01-01] MEDS ORDERED: PATIENT MAY USE OWN MEDS, ALL PO SCH (11:15)
[2022-01-01] MEDS ORDERED: ACETAMINOPHEN 325 MG TABLET PO PRN (11:15)
[2022-01-01] MEDS: NS IV 1000 ML 1,000 ML IV SCH ×2 (11:30→20:33)
--- NOTE | 2022-01-01 14:05 | CARDIAC CATHETERIZATION ---
DATE OF SERVICE: 01/01/2022 CARDIAC CATHETERIZATION AND CORONARY INTERVENTION The patient is a 66-year-old lady who has been having chest discomfort and shortness of breath. Myocardial perfusion imaging was indicative of apical ischemia. Cardiac catheterization was carried out today after having obtained an informed consent for cardiac catheterization and possible ad hoc coronary intervention. DESCRIPTION OF PROCEDURE: She was brought to the cardiac catheterization laboratory in a fasting state. Right groin was prepared and draped in the usual sterile fashion. Lidocaine 1% was used for local anesthesia. Modified Seldinger technique was used to advance a 5-Haitian sheath in right femoral artery. Angiography of the right femoral artery was carried out through the sheath. We used 5-Haitian JL4 catheter for left coronary angiography and 5-Haitian JR4 catheter for right coronary angiography. We used a pigtail catheter for left heart catheterization and left ventricular coronary angiography was not performed. This was to conserve contrast, given the patient's chronic renal insufficiency. Subsequently, we proceeded with percutaneous intervention to the right coronary artery, which was exhibiting an 80% proximal stenosis. The right coronary artery is codominant with the left circumflex artery. PERCUTANEOUS INTERVENTION TO THE RIGHT CORONARY ARTERY: We exchanged the wire over a sheath for a 6-Haitian sheath. We gave 7000 units of intravenous heparin. We gave a double bolus of Integrilin. We used a 6-Haitian JR4 guide catheter with side holes to engage the right coronary artery. We advanced a BMW wire across the lesion. We stented the lesion with a Skypoint 2.75 x 12 mm stent. The stent was deployed at 12 atmospheres. The stent balloon was collapsed and pulled into the proximal two-thirds of the stented segment and inflated to 20 atmospheres. This was done because the proximal part of the standard segment is slightly larger caliber than the distal part. Subsequent angiography revealed no significant residual stenosis and flow throughout the vessel was normal. She tolerated the procedure well. Mynx was used to achieve hemostasis. HEMODYNAMICS: Left ventricular end-diastolic pressure following coronary angiography was 16 mmHg. There is no significant pressure gradient on pullback across the aortic valve. CORONARY ANGIOGRAPHY: Left main coronary artery is free of significant disease. Left anterior descending artery is free of significant disease. Left circumflex artery is codominant and free of significant disease. Right coronary artery is codominant and had 80% proximal stenosis that was successfully stented with Skypoint 2.75 x 12 mm stent with reduction of stenosis to 0% residual. CONCLUSIONS: 1. Coronary artery disease primarily consisting of 80% proximal stenosis of a codominant right coronary artery. This was successfully stented with Skypoint 2.75 x 12 mm stent. No other significant lesions are seen. 2. Elevated left ventricular end-diastolic pressure. DISCUSSION AND RECOMMENDATIONS: Dual antiplatelet therapy is being continued. Vigorous perioperative hydration has been carried out and is being continued to reduce the risk of contrast nephropathy, given the patient's chronic renal insufficiency. She will remain in the hospital overnight. Job ID: [id number] DocumentID: [id number] Dictated Date: 01/01/2022 11:11:39 Vein Pumper Date: 01/01/2022 14:05:03 Dictated By: SAQIB GRAY MD, MA, FACP, FACC,
[2022-01-01] MEDS ORDERED: glyBURIDE 2.5 MG (MICRONASE) TAB PO SCH (16:30)
[2022-01-01] MEDS: GLYBURIDE 1.25 MG PO SCH (18:04)
[2022-01-01] MEDS: CARVEDILOL 25 MG TABLET PO SCH (20:31)
[2022-01-01] MEDS ORDERED: NON-FORMULARY MEDICATION 1 EA EA (Carvedilol 25 MG) PO SCH (21:00)
[2022-01-01] MEDS ORDERED: GLYBURIDE 1.25 MG PO SCH (21:00)
[2022-01-02] VITALS: BP 133/67
[2022-01-02 04:00] VITALS: BP 125/66
[2022-01-02] MEDS: NS IV 1000 ML 1,000 ML IV SCH (06:28)
[2022-01-02] MEDS ORDERED: ARTIFICAL TEARS 0.4 ML UNIT DOSE (REFRESH PLUS) OU PRN (06:45)
[2022-01-02 07:44] VITALS: BP 141/62
--- NOTE | 2022-01-02 08:16 | Progress Note - Cardiology ---
Cardiology SOAP Progress Note Subjective: Sitting up in bed C/O right groin "soreness" No c/o CP, SOB or palpitations Has been up in the room ambulating without difficulty Objective: I&O/Vital Signs 01/01/22 01/02/22 01/02/22 01/02/22 22:00 00:00 00:00 01:00 Temp 36.5 Pulse 64 61 59 Resp 18 21 B/P (MAP) 136/65 (88) 133/67 (89) Pulse Ox 95 94 O2 Delivery NIV CPAP NIV CPAP 01/02/22 01/02/22 01/02/22 01/02/22 04:00 04:00 07:00 07:42 Temp 36.6 Pulse 57 74 Resp 14 B/P (MAP) 125/66 (85) Pulse Ox 94 O2 Delivery NIV CPAP Room Air 01/02/22 07:44 Temp 36.9 Pulse 70 Resp 20 B/P (MAP) 141/62 (88) Pulse Ox 94 O2 Delivery Room Air 01/02/22 00:00 Intake Total 800 ml Balance 800 ml Weight (Pounds): 265 Weight (Ounces): 0.0 Weight (Calculated Kilograms): 120.362862 Side: right Groin site without hematoma: Yes Condition: DP/PT pulses palpable, extremity w/d/p Bruising: mild bruising Constitutional: AAO x 3, well-developed, well-nourished Respiratory: No accessory muscle use, No respiratory distress; chest expansion is symmetric, chest is bilaterally symmetric, lungs clear to auscultation Cardiovascular: regular rate-rhythm; No JVD; S1 and S2 Gastrointestional: No tender; soft, round, audible bowel sounds Extremities: no lower extremity edema bilateral Neurologic/Psychiatric: grossly intact (moves all extremities) Skin: No rash on exposed areas, No ulcerations on exposed areas Results/Procedures: Labs Laboratory Tests 01/02/22 08:07: Sodium Level 136, Potassium Level 4.3, Chloride Level 105, Carbon Dioxide Level 21, Anion Gap 10, Blood Urea Nitrogen 20H, Creatinine 1.26, Estimat Glomerular Filtration Rate 47, BUN/Creatinine Ratio 16, Glucose Level 183H, Calcium Level 8.8 Microbiology 01/01/22 MRSA Screen - Final, Complete MRSA not isolated Laboratory Tests 01/01/22 08:19 01/02/22 08:07 A/P: Assessment: CAD - Echocardiogram of 10-10-[address] Andrade showed LEF 60-65%. RA and LA mildly dilated. PASP 40-45 mmHg - MPI of 12-04-21: This study is indicative of a moderate amount of anterior ischemia. Normal regional wall motion. Normal global left ventricular systolic function with a calculated ejection fraction of 64%. - Cardiac cath of 01-02-22 following abn MPI (as noted above): Coronary artery disease primarily consisting of 80% proximal stenosis of a codominant right coronary artery. This was successfully stented with Skypoint 2.75 x 12 mm stent. No other significant lesions are seen. Elevated left ventricular end- diastolic pressure. 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 2003 Plan: S/P cardiac cath with successful coronary intervention H/o CKD - renal function improved from admission following IVF pre and post hydration OK to discharge home Continue DAPT, BB, statin Advise follow up in one week with SERAFIN Ramirez F/U with Dr. Irby in 4 weeks Out pt BMP prior to f/u with SERAFIN Hernandez HEATHER L ARNP Jan 02, 2022 08:16
[2022-01-02] MEDS ORDERED: ASPI81TA64 PO (08:17)
--- NOTE | 2022-01-02 08:18 | Discharge Inst-Cardiology ---
Discharge Inst-Cardiac Discharge Medications New Medications: Aspirin (Children's Aspirin) 81 Mg Tab.chew 81 MG PO DAILY, #90 TAB 3 Refills Continued Medications: Acetaminophen (Tylenol) 325 Mg Tablet 650 MG PO Q6H PRN for PAIN-MILD (1-4), TAB Amlodipine Besylate (Amlodipine Besylate) 10 Mg Tablet 10 MG PO DAILY, TAB Atorvastatin Calcium (Atorvastatin Calcium) 20 Mg Tablet 20 MG PO BID, TAB LAST FILLED 10/24/21 #24 12 DAY SUPPLY Carvedilol (Carvedilol) 25 Mg Tablet 25 MG PO BID, TAB Cholecalciferol (Vitamin D3) (Vitamin D3) 25 Mcg Tablet 25 MCG PO DAILY, TAB Citalopram Hydrobromide (Citalopram HBr) 20 Mg Tablet 20 MG PO DAILY, TAB Clopidogrel Bisulfate (Clopidogrel) 75 Mg Tablet 75 MG PO DAILY, TAB Glyburide (Glyburide) 1.25 Mg Tablet 1.25 MG PO BID, TAB Iron (Iron) 18 Mg Tablet 18 MG PO DAILY, TAB Lisinopril (Lisinopril) 40 Mg Tablet 40 MG PO DAILY, TAB Polyethylene Glycol 400 (Visine Dry Eye Relief) 30 Ml Drops 1 DROP OU DAILY PRN for DRY EYES, DROPS New, Converted or Re-Newed RX: Transmitted to Pharmacy Patient Instructions Patient Instructions: Please schedule follow up appointment to see Andreina Cope APRN in one week Please scheduled follow up appointment to see Dr. Irby in 4 weeks ANDREINA COPE Jan 02, 2022 08:18
[2022-01-02] MEDS: CARVEDILOL 25 MG TABLET PO SCH (08:22)
[2022-01-02] MEDS: GLYBURIDE 1.25 MG PO SCH (08:24)
[2022-01-02 08:28] LABS: POTASSIUM 4.3 MMOL/L (3.6-5.0)
[2022-01-02 08:29] LABS: CALCIUM 8.8 MG/DL (8.5-10.1)
[2022-01-02 08:33] LABS: CREATININE SERUM 1.26 MG/DL (0.60-1.30)
[2022-01-02] MEDS ORDERED: lisINopril 40 MG (PRINIVIL) TABLET PO SCH (09:00)
[2022-01-02] MEDS ORDERED: amLODIPine 10 MG (NORVASC) TAB PO SCH (09:00)
[2022-01-02] MEDS ORDERED: CHELATED IRON PO SCH (09:00)
[2022-01-02] MEDS ORDERED: CLOPIDOGREL 75 MG (PLAVIX) TABLET PO SCH (09:00)
[2022-01-02] MEDS ORDERED: ASPIRIN 81 MG CHEW (CHILDREN'S ASA) PO SCH (09:00)
[2022-01-02] MEDS ORDERED: VITAMIN D3 25 MCG (1,000 UNITS) TABLET PO SCH ×2 (09:00)
--- NOTE | 2022-01-02 11:03 | Progress Note - Cardiology ---
Cardiology SOAP Progress Note Subjective: No cp or palp or syncope No shortness of breath at rest No groin or leg discomfort No n/v/d No focal weakness Wishes to go home Objective: I&O/Vital Signs 01/02/22 01/02/22 01/02/22 01/02/22 00:00 00:00 01:00 04:00 Temp 36.5 Pulse 61 59 57 Resp 21 14 B/P (MAP) 133/67 (89) 125/66 (85) Pulse Ox 94 94 O2 Delivery NIV CPAP NIV CPAP 01/02/22 01/02/22 01/02/22 01/02/22 04:00 07:00 07:42 07:44 Temp 36.6 36.9 Pulse 74 70 Resp 20 B/P (MAP) 141/62 (88) Pulse Ox 94 O2 Delivery Room Air Room Air 01/02/22 08:00 O2 Delivery Room Air 01/02/22 00:00 Intake Total 800 ml Balance 800 ml Weight (Pounds): 265 Weight (Ounces): 0.0 Weight (Calculated Kilograms): 120.538603 Side: right Groin site without hematoma: Yes Condition: DP/PT pulses palpable, extremity w/d/p Bruising: mild bruising Constitutional: AAO x 3, well-developed, well-nourished Respiratory: No accessory muscle use, No respiratory distress; chest expansion is symmetric, chest is bilaterally symmetric, lungs clear to auscultation Cardiovascular: regular rate-rhythm; No JVD; S1 and S2 Gastrointestional: No tender; soft, round, audible bowel sounds Extremities: no lower extremity edema bilateral Neurologic/Psychiatric: grossly intact (moves all extremities) Skin: No rash on exposed areas, No ulcerations on exposed areas Results/Procedures: Labs Laboratory Tests 01/02/22 08:07: Sodium Level 136, Potassium Level 4.3, Chloride Level 105, Carbon Dioxide Level 21, Anion Gap 10, Blood Urea Nitrogen 20H, Creatinine 1.26, Estimat Glomerular Filtration Rate 47, BUN/Creatinine Ratio 16, Glucose Level 183H, Calcium Level 8.8 Microbiology 01/01/22 MRSA Screen - Final, Complete MRSA not isolated Laboratory Tests 01/01/22 08:19 01/02/22 08:07 A/P: Assessment: CAD - Echocardiogram of 10-10-[address] Andrade showed LEF 60-65%. RA and LA mildly dilated. PASP 40-45 mmHg - MPI of 12-04-21: This study is indicative of a moderate amount of anterior ischemia. Normal regional wall motion. Normal global left ventricular systolic function with a calculated ejection fraction of 64%. - Cardiac cath of 01-02-22 following abn MPI (as noted above): Coronary artery disease primarily consisting of 80% proximal stenosis of a codominant right coronary artery. This was successfully stented with Skypoint 2.75 x 12 mm stent. No other significant lesions are seen. Elevated left ventricular end- diastolic pressure. 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 2003 - Cr stable/improved following card cath of 01/02/22 that was associated with vigorous blue-operative hydration Plan: H/o CKD - renal function improved from admission following IVF pre-, blue-, and post- procedure OK to discharge home Continue DAPT, BB, statin Advise follow up in one week with SERAFIN Ramirez F/U with Dr. Irby in 4 weeks Out pt BMP prior to f/u with SERAFIN Hernandez ALI MD FACP FAC CCDS Jan 02, 2022 11:02
--- NOTE | 2022-01-02 11:04 | Cardiology Discharge Summary ---
Diagnosis/Chief Complaint Date of Admission 01/01/22 Date of Discharge 01/02/22 Final/Discharge Diagnosis CAD - Echocardiogram of 10-10-[address] Andrade showed LEF 60-65%. RA and LA mildly dilated. PASP 40-45 mmHg - MPI of 12-04-21: This study is indicative of a moderate amount of anterior ischemia. Normal regional wall motion. Normal global left ventricular systolic function with a calculated ejection fraction of 64%. - Cardiac cath of 01-02-22 following abn MPI (as noted above): Coronary artery disease primarily consisting of 80% proximal stenosis of a codominant right coronary artery. This was successfully stented with Skypoint 2.75 x 12 mm stent. No other significant lesions are seen. Elevated left ventricular end- diastolic pressure. 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 2003 - Cr stable/improved following card cath of 01/02/22 that was associated with vigorous blue-operative hydration Chief Complaint/HPI Chief Complaint/HPI Please see our progress note of today's date for hosp course Discharge Summary Hospital Course Pending Labs Laboratory Tests 01/02/22 08:07: Sodium Level 136, Potassium Level 4.3, Chloride Level 105, Carbon Dioxide Level 21, Anion Gap 10, Blood Urea Nitrogen 20, Creatinine 1.26, Estimat Glomerular Filtration Rate 47, BUN/Creatinine Ratio 16, Glucose Level 183, Calcium Level 8.8 Discussion & Recommendations Home Medications Reviewed patient Home Medication Reconciliation performed by pharmacy medication reconciliations crystal growing technician and/or nursing. Patients Allergies have been reviewed. Discharge Home Medications: Reviewed and agree with Discharge Medication list on patient's Discharge Instruction sheet SAQIB GRAY MD [facility] Jan 02, 2022 11:04
== END 2022-01-02 11:00 | disposition home or self-care (01) ==
LOC: CATH 11:00 → CSD 11:01 → CATH 01-02 11:00
PROVIDERS: ATTEND Internal Medicine Cardiovascular Disease
DX: I25.10 Atherosclerotic heart disease of native coronary artery without angina pectoris (principal); I12.9 Hypertensive chronic kidney disease with stage 1 through stage 4 chronic kidney disease, or unspecified chronic kidney disease; E11.22 Type 2 diabetes mellitus with diabetic chronic kidney disease; N18.9 Chronic kidney disease, unspecified; I27.21 Secondary pulmonary arterial hypertension; G47.33 Obstructive sleep apnea (adult) (pediatric); Z90.5 Acquired absence of kidney; Z79.84 Long term (current) use of oral hypoglycemic drugs; Z79.899 Other long term (current) drug therapy; Z79.02 Long term (current) use of antithrombotics/antiplatelets
CPT/HCPCS: 80048; 80053; 80061; 85027; 85610; 85730; 87081; 93458; C1760; C1769; C1874; C1887; C1894 ×2; C9600; 36415

== ENCOUNTER → 2022-01-07 | Outpatient (CLI) | payer MEDICARE ==
[~2022-01-07] MED LIST changes: +ASPI81TA64 PO; -ASPIRIN 81 MG CHEW (CHILDREN'S ASA) ONE; -CLOPIDOGREL 300 MG (PLAVIX) TABLET PO ONE; -EPTIFIBATIDE BOLUS 0 ML IV ONE; -EPTIFIBATIDE BOLUS 30 ML IV ONE; -HEParin (CATH LAB) 2,000 ML IV ONE; -HEParin 1000 UNIT/ML (10ML VIAL) FOR BOLUS ONE; -LIDOCAINE 1% INJ 50 ML (XYLOCAINE) VIAL ONE; -MIDAZOLAM 5 MG/5 ML (VERSED) VIAL ONE; -NS IV 1000 ML 1,000 ML IV SCH; -NS IV 1000 ML 1,000 ML ONE; -fentaNYL INJ 100 MCG/2 ML AMP ONE
[2022-01-07 10:17] LABS: CALCIUM 9.1 MG/DL (8.5-10.1); CREATININE SERUM 1.47 MG/DL (0.60-1.30); POTASSIUM 4.3 MMOL/L (3.6-5.0)
== END ==
LOC: LAB 09:40
PROVIDERS: ATTEND Nurse Practitioner Family
DX: N18.9 Chronic kidney disease, unspecified (principal)
CPT/HCPCS: 36415; 80048

== ENCOUNTER 2022-01-13 10:23 | Inpatient (IN) | payer MEDICARE ==
[2022-01-13] VITALS (20 sets, daily range): BP systolic 108–141; BP diastolic 47–67
[~2022-01-13] VITALS: Ht 162.6 cm; Wt 123.8 kg
[2022-01-13 10:58] LABS: BASOPHILS # (AUTO) 0.1 10^3/uL (0.0-0.1); BASOPHILS % (AUTO) 1 % (0-10); EOSINOPHILS # (AUTO) 0.2 10^3/uL (0.0-0.3); EOSINOPHILS % (AUTO) 2 % (0-10); HEMATOCRIT 28 % (35-52); LYMPHOCYTES # (AUTO) 1.2 10^3/uL (1.0-4.0); LYMPHOCYTES % (AUTO) 11 % (12-44); MEAN CORPUSCULAR HEMOGLOBIN 31 pg (25-34); MEAN CORPUSCULAR HGB CONC 32 g/dL (32-36); MEAN CORPUSCULAR VOLUME 96 fL (80-99); MEAN PLATELET VOLUME 9.8 fL (9.0-12.2); MONOCYTES # (AUTO) 0.5 10^3/uL (0.0-1.0); MONOCYTES % (AUTO) 5 % (0-12); NEUTROPHILS # (AUTO) 8.8 10^3/uL (1.8-7.8); NEUTROPHILS % (AUTO) 82 % (42-75); PLATELET COUNT 362 10^3/uL (130-400); WHITE BLOOD COUNT 10.8 10^3/uL (4.3-11.0)
--- NOTE | 2022-01-13 10:59 | ED Syncope ---
General Chief Complaint: Dizziness/Syncope Stated Complaint: FALL/HEAD LAC/VOMITED/BLACK STOOL Source of Information: Patient, Family () Exam Limitations: No Limitations History of Present Illness Date Seen by Provider: Jan 13, 2022 Time Seen by Provider: 10:41 Initial Comments Patient is a 66-year-old female who presents to the emergency department by private vehicle with her after syncopal episode this morning. states that he awoke hearing his fall on the floor of her bedroom. Initially she seemed a little confused but was able to get up on her own. Suf fered a contusion to her right thigh. Patient also states that she has had this morning some vomiting of maroonish/bright red blood as well as 2 episodes of black stool. She has a little stomach discomfort. No further nausea. Not complaining of any pain currently. A was able to eat a little supper last night before bed. Had cardiac catheterization approximately 10 days ago with a stent placed. Currently on aspirin and Plavix. No history of GI bleed in the past. Has single kidney and some chronic kidney disease currently. Also a diabetic. History of hypertension. No prior seizure history. No numbness weakness or tingling currently. No chest pain or shortness of breath. Alert, oriented, normal mentation. Initial vital signs normal. All other review of systems reviewed and negative except as stated Timing/Prior Episodes: Single Episode Today Symptoms Prior to Episode: Confusion (brief), Nausea, Other (vomiting blood; black stool x2) Precipitating Factors: Other (?getting out of bed) Loss of Consciousness: Brief (Seconds) Current Symptoms: Back to Normal Allergies and Home Medications Allergies Coded Allergies: No Known Drug Allergies (Verified , 08/09/08) Patient Home Medication List Home Medication List Reviewed: Yes Amlodipine Besylate (Amlodipine Besylate) 10 Mg Tablet, 10 MG PO DAILY, (Reported) Entered as Reported by: RUBEN CORREA on 01/01/22858 Last Action: Reviewed Aspirin (Aspirin) 81 Mg Tab.chew, 81 MG PO HS, (Reported) Entered as Reported by: COLLEEN RANGEL on 01/14/22919 Last Action: Reviewed Atorvastatin Calcium (Atorvastatin Calcium) 40 Mg Tablet, 40 MG PO BID, (Reported) Entered as Reported by: COLLEEN RANGEL on 01/14/22919 Last Action: Reviewed Carvedilol (Carvedilol) 12.5 Mg Tablet, 25 MG PO BID, (Reported) Entered as Reported by: COLLEEN RANGEL on 01/14/22919 Last Action: Reviewed Cholecalciferol (Vitamin D3) (Vitamin D3) 25 Mcg Tablet, 25 MCG PO DAILY, ( Reported) Entered as Reported by: RUBEN CORREA on 01/01/22858 Last Action: Reviewed Citalopram Hydrobromide (Citalopram HBr) 20 Mg Tablet, 20 MG PO DAILY, (Reported) Entered as Reported by: RUBEN CORREA on 01/01/22858 Last Action: Reviewed Clopidogrel Bisulfate (Clopidogrel) 75 Mg Tablet, 75 MG PO DAILY, (Reported) Entered as Reported by: RUBEN CORREA on 01/01/22858 Last Action: Reviewed Furosemide (Furosemide) 20 Mg Tablet, 20 MG PO DAILY, (Reported) Entered as Reported by: Ramona Ann on 01/13/22 1636 Last Action: Reviewed Glyburide (Glyburide) 1.25 Mg Tablet, 1.25 MG PO BID WITH MEALS, (Reported) Entered as Reported by: RUBEN CORREA on 01/01/22858 Last Action: Reviewed Iron (Iron) 18 Mg Tablet, 18 MG PO DAILY, (Reported) Entered as Reported by: RUBEN CORREA on 01/01/22858 Last Action: Reviewed Lisinopril (Lisinopril) 40 Mg Tablet, 40 MG PO HS, (Reported) Entered as Reported by: RUBEN CORREA on 01/01/22858 Last Action: Reviewed Discontinued Medications Acetaminophen (Tylenol) 325 Mg Tablet, 650 MG PO Q6H PRN for PAIN-MILD (1-4), (Reported) Discontinued Reason: No Longer Taking Entered as Reported by: RUBEN CORREA on 01/01/22858 Last Action: Discontinued Aspirin (Children's Aspirin) 81 Mg Tab.chew, 81 MG PO DAILY Discontinued Reason: Duplicate Order Prescribed by: VIVEK COLON on 01/02/22 08 Last Action: Discontinued Atorvastatin Calcium (Atorvastatin Calcium) 20 Mg Tablet, 20 MG PO BID, (Reported) Discontinued Reason: Duplicate Order Entered as Reported by: ERIC GARZON on 11/30/19 0204 Last Action: Discontinued Carvedilol (Carvedilol) 25 Mg Tablet, 25 MG PO BID, (Reported) Discontinued Reason: Duplicate Order Entered as Reported by: RUBEN CORREA on 01/01/22858 Last Action: Discontinued Polyethylene Glycol 400 (Visine Dry Eye Relief) 30 Ml Drops, 1 DROP OU DAILY PRN for DRY EYES, (Reported) Discontinued Reason: No Longer Taking Entered as Reported by: RUBEN CORREA on 01/01/22858 Last Action: Discontinued Review of Systems Constitutional: see HPI EENTM: eye pain Respiratory: no symptoms reported Cardiovascular: no symptoms reported Gastrointestinal: melena, vomiting (bloody emesis), other (mild abdominal discomfort - generalized) Genitourinary: no symptoms reported : No Musculoskeletal: no symptoms reported Skin: no symptoms reported Psychiatric/Neurological: Denies Seizure All Other Systems Reviewed Negative Unless Noted: Yes Past Jcoeuxk-Rncgyg-Yssszf Hx Patient Social History Tobacco Use?: No Use of E-Cig and/or Vaping dev: No Substance use?: No Alcohol Use?: No Pt feels they are or have been: No Immunizations Up To Date Tetanus Booster (TDap): More than 5yrs Influenza Vaccine Up-to-Date: No; Not Current Seasonal Allergies Seasonal Allergies: No Past Medical History Gallbladder, Orthopedic Sleep Apnea Currently Using CPAP: Yes Currently Using BIPAP: No High Cholesterol, Hypertension Reproductive Disorders: No Sexually Transmitted Disease: No Diverticulosis, Hemorrhoids Arthritis Depression Family Medical History Cardiovascular disease 19 FATHER Cataracts 19 MOTHER Colon cancer 19 MOTHER Completed stroke 19 MOTHER Hypertension 19 FATHER G8 SISTER Myocardial infarction 19 FATHER No Family History of: AIDS Dirk's disease Alcoholism Alzheimer's disease Arthritis Asthma Dementia Diabetes mellitus Drug abuse Kidney disease Parkinson's disease Prostate cancer Respiratory disorder Thyroid disease Tuberculosis Physical Exam Vital Signs Vital Signs - First Documented 01/13/22 10:30 Temp 35.4 Pulse 68 Resp 21 B/P (MAP) 150/108 (122) Pulse Ox 97 O2 Delivery Room Air Capillary Refill : Height, Weight, BMI Height: 5'4.00" Weight: 265lbs. 0.0oz. 120.697848fn; 46.22 BMI Method: General Appearance: No Apparent Distress, WD/WN HEENT: PERRL/EOMI, Pale Conjunctivae (L), Pale Conjunctivae (R), Other (intraoral pallor; ecchymoses upper and lower right eye. superficial lac right eyebrow) Neck: Full Range of Motion, Normal Inspection, Non Tender Cardiovascular: Regular Rate, Rhythm, Normal Peripheral Pulses, Other (brisk cap refill) Respiratory: Lungs Clear, Normal Breath Sounds Gastrointestinal: Normal Bowel Sounds, Non Tender, Soft Extremities: Normal Capillary Refill, Normal Inspection, Normal Range of Motion, Non Tender Neurologic/Psychiatric: Alert, Oriented x3, No Motor/Sensory Deficits, Normal Mood/Affect, compliance consultant II-XII Norm as Tested Cranial Nerves: Normal Hearing, Normal Speech, PERRL Motor/Sensory: No Motor Deficit, No Sensory Deficit Skin: Normal Color, Warm/Dry, Other (2.5cm angulated lac over right eyebrow; superficial) Procedures/Interventions Wound Location: Face Other Wound Location right eyebrow Wound Length (cm): 2.5 Wound's Depth, Shape: superficial Wound Explored: clean Irrigated w/ Saline (ccs): 100 Betadine Prep?: Yes Anesthesia: 1% Lidocaine Volume Anesthetic (ccs): 2 Suture: Prolene Suture Size: 5-0 Number of Sutures: 5 Layer Closure?: 1 Sterile Dressing Applied?: No Progress/Results/Core Measures Results/Orders Lab Results Laboratory Tests Test 01/13/22 10:38 01/13/22 10:51 Range/Units White Blood Count 10.8 4.3-11.0 10^3/uL Red Blood Count 2.94 L 3.80-5.11 10^6/uL Hemoglobin 9.0 L 11.5-16.0 g/dL Hematocrit 28 L 35-52 % Mean Corpuscular Volume 96 80-99 fL Mean Corpuscular Hemoglobin 31 25-34 pg Mean Corpuscular Hemoglobin Concent 32 32-36 g/dL Red Cell Distribution Width 14.0 10.0-14.5 % Platelet Count 362 130-400 10^3/uL Mean Platelet Volume 9.8 9.0-12.2 fL Immature Granulocyte % (Auto) 1 % Neutrophils (%) (Auto) 82 H 42-75 % Lymphocytes (%) (Auto) 11 L 12-44 % Monocytes (%) (Auto) 5 0-12 % Eosinophils (%) (Auto) 2 0-10 % Basophils (%) (Auto) 1 0-10 % Neutrophils # (Auto) 8.8 H 1.8-7.8 10^3/uL Lymphocytes # (Auto) 1.2 1.0-4.0 10^3/uL Monocytes # (Auto) 0.5 0.0-1.0 10^3/uL Eosinophils # (Auto) 0.2 0.0-0.3 10^3/uL Basophils # (Auto) 0.1 0.0-0.1 10^3/uL Immature Granulocyte # (Auto) 0.1 0.0-0.1 10^3/uL Sodium Level 136 135-145 MMOL/L Potassium Level 5.2 H 3.6-5.0 MMOL/L Chloride Level 104 98-107 MMOL/L Carbon Dioxide Level 20 L 21-32 MMOL/L Anion Gap 12 5-14 MMOL/L Blood Urea Nitrogen 39 H 7-18 MG/DL Creatinine 1.46 H 0.60-1.30 MG/DL Estimat Glomerular Filtration Rate 39 BUN/Creatinine Ratio 27 Glucose Level 165 H 70-105 MG/DL Calcium Level 9.1 8.5-10.1 MG/DL Corrected Calcium 9.4 8.5-10.1 MG/DL Iron Level 133 33-167 ug/dL Total Bilirubin 1.0 0.1-1.0 MG/DL Aspartate Amino Transf (AST/SGOT) 12 5-34 U/L Alanine Aminotransferase (ALT/SGPT) < 6 0-55 U/L Alkaline Phosphatase 92 40-136 U/L Total Protein 6.2 L 6.4-8.2 GM/DL Albumin 3.6 3.2-4.5 GM/DL Vitamin B12 Level 059 935-8915 pg/mL Urine Color YELLOW Urine Clarity CLEAR Urine pH 5.5 5-9 Urine Specific [place] 1.025 H 1.016-1.022 Urine Protein 1+ H NEGATIVE Urine Glucose (UA) NEGATIVE NEGATIVE Urine Ketones NEGATIVE NEGATIVE Urine Nitrite NEGATIVE NEGATIVE Urine Bilirubin NEGATIVE NEGATIVE Urine Urobilinogen 0.2 < = 1.0 MG/DL Urine Leukocyte Esterase NEGATIVE NEGATIVE Urine RBC (Auto) NEGATIVE NEGATIVE Urine RBC NONE /HPF Urine WBC NONE /HPF Urine Squamous Epithelial Cells 0-2 /HPF Urine Crystals NONE /LPF Urine Bacteria NEGATIVE /HPF Urine Casts NONE /LPF Urine Mucus NEGATIVE /LPF Urine Culture Indicated NO My Orders Orders - IAN GERMAIN MD Ed Iv/Invasive Line Start (01/13/22 10:46) Cbc With Automated Diff (3/20/22 10:46) Comprehensive Metabolic Panel (01/13/22 10:46) Ua Culture If Indicated (01/13/22 10:46) Chest 1 View, Ap/Pa Only (01/13/22 10:46) Ekg Tracing (01/13/22 10:46) Type And Screen (01/13/22 10:46) Ct Head Wo (01/13/22 10:46) Vital Signs/I&O 01/13/22 01/13/22 10:30 12:03 Temp 35.4 Pulse 68 63 71 76 Resp 21 B/P (MAP) 150/108 (122) 108/48 114/56 120/75 Pulse Ox 97 O2 Delivery Room Air Fecal Occult: Negative Initial ECG Impression Date: Jan 13, 2022 Initial ECG Impression Time: 10:51 Initial ECG Rate: 64 Initial ECG Rhythm: Normal Sinus Initial ECG Intervals: Normal Initial ECG Impression: Normal Diagnostic Imaging Diagonstic Imaging: Xray Comments [facility] [place] NAME: JOSELUIS NARANJO [employer] [facility] REC#: [id number] PT STATUS: REG ER : 1955 PHYSICIAN: IAN GERMAIN MD ADMIT DATE: 01/13/22/ER Signed Date of Exam:01/13/22 CHEST 1 VIEW, AP/PA ONLY INDICATION: Syncope. COMPARISON: 11/05/2021. TECHNIQUE: Single radiograph of the chest dated 01/13/2022. FINDINGS: The cardiac silhouette is enlarged, though stable. No significant pulmonary vascular congestion. Small hiatal hernia is again seen. The lungs are clear of focal pulmonary opacity. No significant pleural effusion. No pneumothorax. No acute osseous abnormality. IMPRESSION: Stable cardiomegaly without pulmonary vascular congestion. Hiatal hernia. Dictated by: Dictated on workstation # [id number] Dict: 01/13/221119 Trans: 01/13/22 114 [id number] Interpreted by: DUSTY PETER MD Electronically signed by: DUSTY PETER MD 01/13/22 1146 Diagonstic Imaging: CT Comments [facility] [place] NAME: JOSELUIS NARANJO [facility] REC#: [id number] PT STATUS: REG ER : 1955 PHYSICIAN: IAN GERMAIN MD ADMIT DATE: 01/13/22/ER Signed Date of Exam:01/13/22 CT HEAD WO PROCEDURE: CT head without contrast. TECHNIQUE: Multiple contiguous axial images were obtained through the brain without the use of intravenous contrast. Auto Exposure Controls were utilized during the CT exam to meet ALARA standards for radiation dose reduction. INDICATION: Syncope, fall, pain. COMPARISON: None available. FINDINGS: No intracranial hemorrhage. No intracranial mass, mass effect, midline shift, herniation, hydrocephalus, or extra-axial fluid collection. Minimal periventricular and subcortical white matter hypodensities are present, most consistent with minimal background chronic small vessel white matter ischemic disease. No definite CT evidence of an acute ischemic infarction. The bilateral ocular lenses are absent. Mild background vascular calcifications. Small amount of fluid versus mucosal thickening within the left sphenoid sinus. The paranasal sinuses are otherwise clear. The calvarium is intact. IMPRESSION: No acute intracranial abnormality with minimal background chronic small vessel white matter ischemic disease present. Small amount of fluid versus mucosal thickening within the left sphenoid sinus. Dictated by: Dictated on workstation # [id number] Dict: 01/13/22 1117 Trans: 01/13/22 1145 [id number] Interpreted by: DUSTY PETER MD Electronically signed by: DUSTY PETER MD 01/13/22 1145 Departure Communication (Admissions) Time/Spoke to Admitting Phy: 12:04 Dr Stevenson would like step down Kido @ 1206 Park @ 1208 - make sure not to stop aspirin and plavix Impression Primary Impression: Syncope Qualified Codes: R55 - Syncope and collapse Additional Impressions: Hematemesis Qualified Codes: K92.0 - Hematemesis Laceration of right eyebrow Qualified Codes: S01.111A - Laceration without foreign body of right eyelid and periocular area, initial encounter Disposition: ADMITTED INPATIENT Condition: Stable Admissions Decision to Admit Reason: Admit from ER (General) Decision to Admit/Date: Jan 13, 2022 Time/Decision to Admit Time: 11:57 Departure-Patient Inst. Referrals: JERZY STEVENSON DO (PCP/Family) Primary Care Physician IAN GERMAIN MD Jan 13, 2022 10:59
[2022-01-13 11:03] LABS: ALBUMIN 3.6 GM/DL (3.2-4.5)
[2022-01-13 11:04] LABS: CHLORIDE 104 MMOL/L (98-107); POTASSIUM 5.2 MMOL/L (3.6-5.0); SODIUM 136 MMOL/L (135-145)
[2022-01-13 11:05] LABS: CALCIUM 9.1 MG/DL (8.5-10.1)
[2022-01-13 11:06] LABS: GLUCOSE 165 MG/DL (70-105); TOTAL PROTEIN 6.2 GM/DL (6.4-8.2)
[2022-01-13 11:07] LABS: CARBON DIOXIDE 20 MMOL/L (21-32)
[2022-01-13 11:10] LABS: ALKALINE PHOSPHATASE 92 U/L (40-136); CREATININE SERUM 1.46 MG/DL (0.60-1.30); GFR ESTIMATED 39
[2022-01-13 11:11] LABS: BUN/CREATININE RATIO 27
[2022-01-13 11:12] LABS: BILIRUBIN,URINE NEGATIVE (NEGATIVE); CLARITY,URINE CLEAR; COLOR,URINE YELLOW; GLUCOSE, URINE (UA) NEGATIVE (NEGATIVE); KETONES,URINE NEGATIVE (NEGATIVE); LEUKOCYTE ESTERASE ,URINE NEGATIVE (NEGATIVE); NITRITE,URINE NEGATIVE (NEGATIVE); PH,URINE 5.5 (5-9); PROTEIN,URINE 1+ (NEGATIVE)
[2022-01-13 11:13] LABS: ALANINE AMINOTRANSFERASE < 6 U/L (0-55)
[2022-01-13 11:21] LABS: BACTERIA,URINE NEGATIVE /HPF; SQUAMOUS EPITHELIAL CELL,UR 0-2 /HPF
--- NOTE | 2022-01-13 11:23 | Diagnostic Imaging Report ---
PROCEDURE: CT head without contrast. TECHNIQUE: Multiple contiguous axial images were obtained through the brain without the use of intravenous contrast. Auto Exposure Controls were utilized during the CT exam to meet ALARA standards for radiation dose reduction. INDICATION: Syncope, fall, pain. COMPARISON: None available. FINDINGS: No intracranial hemorrhage. No intracranial mass, mass effect, midline shift, herniation, hydrocephalus, or extra-axial fluid collection. Minimal periventricular and subcortical white matter hypodensities are present, most consistent with minimal background chronic small vessel white matter ischemic disease. No definite CT evidence of an acute ischemic infarction. The bilateral ocular lenses are absent. Mild background vascular calcifications. Small amount of fluid versus mucosal thickening within the left sphenoid sinus. The paranasal sinuses are otherwise clear. The calvarium is intact. IMPRESSION: No acute intracranial abnormality with minimal background chronic small vessel white matter ischemic disease present. Small amount of fluid versus mucosal thickening within the left sphenoid sinus. Dictated by: Dictated on workstation # [id number]
--- NOTE | 2022-01-13 11:25 | Diagnostic Imaging Report ---
INDICATION: Syncope. COMPARISON: 11/05/2021. TECHNIQUE: Single radiograph of the chest dated 01/13/2022. FINDINGS: The cardiac silhouette is enlarged, though stable. No significant pulmonary vascular congestion. Small hiatal hernia is again seen. The lungs are clear of focal pulmonary opacity. No significant pleural effusion. No pneumothorax. No acute osseous abnormality. IMPRESSION: Stable cardiomegaly without pulmonary vascular congestion. Hiatal hernia. Dictated by: Dictated on workstation # [id number]
--- NOTE | 2022-01-13 13:40 | Tele-ICU Progress Note ---
Subjective Date Seen by a Provider: Jan 13, 2022 Time Seen by a Provider: 13:00 Subjective/Events-last exam This virtual visit was conducted using real time audio/video. Thank you for asking us to see this patient for syncope/fall, hematemesis and black stool x 2. Recent events: CAD w stent 10 days ago. PMH: CAD, VLADIMIR, HTN, HL, Dep., OA, single kidney w CKD, DM2. SH: smoking history N FH: Non-contributory ROS: as in HPI PE: VSS. O2 sat 97% on RA HEENT: No obvious masses, adenopathy or JVD. Chest: clear to auscultation. CV: RRR S1 S2 No murmur or added sounds. Abd: Non-tender. Bowel sounds Y. : Unremarkable. Bran N. TYPE COPYIST/psychiatric: Grossly intact. No obvious focal findings. Extremities: No edema. Capillary refill < 3 seconds. Skin: unremarkable. Results: Elevated BUN 39, Creat 1.46, BG 165. Decreased Hb 9.0. CXR: Cardiomegaly. . Available chart/ vitals / labs / images reviewed. Video assessment done using teleICU camera, rest of exam as per RN. A/P: UGIB. Consider PPI, GI eval.. Critical Care: critically ill patient. Consider SCDs Discussed with NERY Greene. Asked RN to reach out to eICU if any questions or concerns later. Time spent with patient/coordination of care with other health professionals (mins): 30 Sepsis Event Evaluation Height, Weight, BMI Height: 5'4.00" Weight: 265lbs. 0.0oz. 120.149073jg; 46.00 BMI Method: Exam Exam Patient acknowledged, consented, and participated in this virtual visit which was conducted using real time audio/video Vital Signs Date Time Temp Pulse Resp B/P (MAP) Pulse Ox O2 Delivery O2 Flow Rate FiO2 01/13/22 12:03 63 108/48 71 114/56 76 120/75 01/13/22 10:30 35.4 68 21 150/108 (122) 97 Room Air Height & Weight Height: 5'4.00" Weight: 265lbs. 0.0oz. 120.650429pa; 46.00 BMI Method: General Appearance: No Apparent Distress, WD/WN HEENT: PERRL/EOMI, Pale Conjunctivae (L), Pale Conjunctivae (R), Other (intraoral pallor; ecchymoses upper and lower right eye. 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 Critical Care: Critically Ill Patient MILENA SPICER MD Jan 13, 2022 13:40
[2022-01-13] MEDS ORDERED: ONDANSETRON 4 MG/2 ML (SDV) Z0FRAN IVP ONE (13:45)
[2022-01-13] MEDS ORDERED: ANTACID SUSP 30 ML UDC (MYLANTA) PO PRN (14:00)
[2022-01-13] MEDS ORDERED: CALCIUM CARBONATE 500 MG (TUMS) TAB.CHEW PO PRN (14:00)
[2022-01-13] MEDS ORDERED: MELATONIN 3 MG TABLET PO PRN (14:00)
[2022-01-13] MEDS ORDERED: MILK OF MAGNESIA 400 MG/5 ML 30 ML UDC PO PRN (14:00)
[2022-01-13] MEDS ORDERED: diphenhydrAMINE 25 MG TAB (BENADRYL) PO PRN (14:00)
[2022-01-13] MEDS ORDERED: BISACODYL 10 MG SUPP (DULCOLAX) PR PRN (14:00)
[2022-01-13] MEDS ORDERED: diphenhydrAMINE 50 MG/ML INJ (BENADRYL) IVP PRN (14:00)
[2022-01-13] MEDS ORDERED: polyethylene glycoL POWDER 17 GM (MIRALAX) PACK PO PRN (14:00)
[2022-01-13] MEDS ORDERED: ACETAMINOPHEN 325 MG TABLET PO PRN (14:00)
[2022-01-13] MEDS ORDERED: ALPRAZolam 0.25 MG (XANAX) TAB PO PRN (14:00)
[2022-01-13] MEDS ORDERED: LACTULOSE SYRUP 10GM/15ML (ENULOSE) 30ML UDC PO PRN (14:00)
[2022-01-13] MEDS ORDERED: ONDANSETRON 4 MG/2 ML (SDV) Z0FRAN IV PRN (14:00)
[2022-01-13] MEDS: NS IV 1000 ML 1,000 ML IV SCH (14:28)
--- NOTE | 2022-01-13 16:26 | CONSULTATION REPORT ---
DATE OF SERVICE: ATTENDING PRIMARY CARE PHYSICIAN: Lillian Staley DO. HISTORY OF PRESENT ILLNESS: The patient is a 66-year-old female who presented to the Emergency Department by private vehicle after having a syncopal episode and this was followed by an episode of nausea and vomiting, which they described as a very dark. She also has had some confusion. After the fall, she did have a mild contusion of the right thigh. Upon further questioning, she reports that she did have some crampy abdominal pain, but since being admitted has not had any further episodes of nausea. She did have a cardiac catheterization as well as stent placement approximately 10 days ago and is currently on aspirin and Plavix. She does not have a history of gastroesophageal reflux disease or peptic ulcer disease. Her hemoglobin was relatively stable at 9.0, hematocrit 28. PAST MEDICAL HISTORY: Sleep apnea, hypertension, hypercholesterolemia, diverticulosis, hemorrhoids, arthritis, depression. PAST SURGICAL HISTORY: Laparoscopic cholecystectomy, orthopedic procedure. ALLERGIES: No known drug allergies. MEDICATIONS: Amlodipine 10 mg daily, aspirin 81 mg daily, atorvastatin 20 mg b.i.d., carvedilol 25 mg b.i.d., cholecalciferol 25 mcg daily, citalopram 20 mg daily, Plavix 75 mg daily, glyburide 1.25 mg b.i.d., iron 18 mg daily, lisinopril 40 mg daily. SOCIAL HISTORY: Negative smoke, negative alcohol. FAMILY HISTORY: Mother, colon cancer. VITAL SIGNS: Temperature 35.4, blood pressure 150/108, pulse 68, respirations 21, pulse ox 97% on room air. REVIEW OF SYSTEMS: Well-nourished female currently in no acute distress. She is not experiencing any shortness of breath or difficulty breathing. No chest pain, palpitations, diaphoresis. She did have episodes of nausea and vomiting as well as a syncopal episode and did have what appears to be coffee-ground emesis. She does not report having a bowel movement recently and lately has not reported any red blood per rectum nor any dark tarry stools. No fever, chills, no recent inadvertent weight loss. All other review of systems negative. PHYSICAL EXAMINATION: CHEST: Clear. Good breath sounds bilaterally. HEART: Regular, no murmurs. EXTREMITIES: No lower extremity edema, negative Homans sign. HEENT: No scleral icterus. NECK: No cervical lymphadenopathy. ABDOMEN: Soft, nondistended. There is mild discomfort in the epigastric region upon deep palpation. No peritoneal signs. SKIN: Warm, dry. LABORATORY DATA: WBC 10.8, hemoglobin 9.0, hematocrit 28, platelets 362. BUN 39, creatinine 1.46. Liver function enzymes are normal. ASSESSMENT AND PLAN: A 66-year-old female with syncopal episode as well as a likely resultant nausea and vomiting. However, there appeared to be some coffee-ground emesis. We will ask her to also ascertain when her last colonoscopy was and if this has been a long duration of time, we will add colonoscopy to the EGD as well. For now, we will continue to monitor her hemoglobin and hematocrit as well as IV hydration. Job ID: [id number] DocumentID: [id number] Dictated Date: 01/13/2022 15:23:49 Medical Photographer Date: 01/13/2022 16:24:52 Dictated By: DEMOND BARBOSA MD
[2022-01-13] MEDS ORDERED: FURO20TA4 PO (16:36)
[2022-01-13] MEDS: inSUlin ASPART (NovoLOG) 1 UNIT/0.01 ML (CHARGE PER UNIT) SC SCH ×2 (16:58→21:29)
--- NOTE | 2022-01-13 17:10 | History & Physical ---
History of Present Illness HPI/Chief Complaint Chief complaint: GI bleed History of present illness: This is a 66-year-old white female clinic patient of mine with recent stent placement in RCA and placement on Plavix who presented to the ER after a syncopal episode at home and a large amount of hematemesis and melena. It is presumed she has an upper GI bleed and Dr. BARBOSA's been consulted. Serial hematocrits will be ordered and will require transfusion for less than 8.0 hemoglobin. Currently she is doing a lot better but will require close monitoring along with cardiology consultation. Source: patient Exam Limitations: no limitations Date Seen 01/13/22 Time Seen by a Provider: 13:00 Attending Physician Lillian Staley DO PCP Lillian Staley DO Referring Physician Date of Admission Jan 13, 2022 at 12:09 Home Medications & Allergies Home Medications Reviewed patient Home Medication Reconciliation performed by pharmacy medication reconciliations shale processing technician and/or nursing. Patients Allergies have been reviewed. Allergies Allergies Coded Allergies No Known Drug Allergies ([id number]/14/08) Past Lmplgao-Hvhvte-Qgmtng Hx Past Med/Social Hx: Reviewed Nursing Past Med/Soc Hx, Reviewed and Corrections made Patient Social History Marrital Status: Employed/Student: employed ([employer]) Alcohol Use: Denies Use Smoking Status: Never a Smoker Recent Foreign Travel: No Contact w/other who traveled: No Recent Hopitalizations: No Recent Infectious Disease Expo: No Immunizations Up To Date Tetanus Booster (TDap): More than 5yrs Date of Influenza Vaccine: Aug 03, 2015 Seasonal Allergies Seasonal Allergies: No Past Medical History Surgeries: Gallbladder, Orthopedic Respiratory: Sleep Apnea Currently Using CPAP: Yes Currently Using BIPAP: No Cardiac: Coronary Artery Disease, High Cholesterol, Hypertension Reproductive: No Sexually Transmitted Disease: No Genitourinary: Bladder Infection, Renal Failure Gastrointestinal: Diverticulosis, Hemorrhoids Musculoskeletal: Arthritis Psychosocial: Depression Family History Cardiovascular disease 19 FATHER Cataracts 19 MOTHER Colon cancer 19 MOTHER Completed stroke 19 MOTHER Hypertension 19 FATHER G8 SISTER Myocardial infarction 19 FATHER No Family History of: AIDS [place]'s disease Alcoholism Alzheimer's disease Arthritis Asthma Dementia Diabetes mellitus Drug abuse Kidney disease Parkinson's disease Prostate cancer Respiratory disorder Thyroid disease Tuberculosis Review of Systems Constitutional: see HPI, dizziness, malaise, weakness Respiratory: no symptoms reported Cardiovascular: no symptoms reported Gastrointestinal: hematemesis, melena Genitourinary: no symptoms reported Musculoskeletal: back pain Skin: no symptoms reported Psychiatric/Neurological: Anxiety, Depressed All Other Systems Reviewed Negative Unless Noted: Yes Physical Exam Physical Exam Vital Signs Vital Signs - First Documented 01/13/22 10:30 Temp 35.4 Pulse 68 Resp 21 B/P (MAP) 150/108 (122) Pulse Ox 97 O2 Delivery Room Air Capillary Refill : Less Than 3 Seconds Height, Weight, BMI Height: 5'4.00" Weight: 265lbs. 0.0oz. 120.969951lw; 46.14 BMI Method: General Appearance: No Apparent Distress, WD/WN, Chronically ill HEENT: PERRL/EOMI, Normal ENT Inspection, Pharynx Normal, Pale Conjunctivae (L), Pale Conjunctivae (R), Other (intraoral pallor; ecchymoses upper and lower right eye. 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 Assessment/Plan Admission Diagnosis Assessment: Acute GI bleed Acute on chronic anemia Acute blood loss anemia likely will require transfusion Recent stent in RCA (Coronary artery disease primarily consisting of 80% proximal stenosis of a codominant right coronary artery. This was successfully stented with Skypoint 2.75 x 12 mm stent) by cardiology 01/01/22 maintained on Plavix Chronic kidney disease Solo kidney Hypertension Diabetes Obstructive sleep apnea on CPAP Pulmonary hypertension Plan: Supportive care Transfuse as necessary Dr. BARBOSA consult for scopes Cardiology consult Admission Status: Inpatient Order (span 2 midnights) Reason for Inpatient Admission: GIB Diagnosis/Problems Diagnosis/Problems (1) Syncope Status: Acute Qualifiers: Syncope type: unspecified Qualified Codes: R55 - Syncope and collapse (2) Hematemesis Status: Acute Qualifiers: Nausea presence: unspecified Qualified Codes: K92.0 - Hematemesis (3) CAD (coronary artery disease) (4) Pulmonary arterial hypertension (5) CKD (chronic kidney disease) Clinical Quality Measures DVT/VTE Risk/Contraindication: Contraindications-Pharm: Other *list below* Other: LILLIAN Zaragoza DO Jan 13, 2022 17:10
[2022-01-13 18:21] LABS: HEMOGLOBIN 7.3 g/dL (11.5-16.0)
[2022-01-13] MEDS: PANTOPRAZOLE INJECTION 200 MG in NS (IVPB) 100 ML IV SCH (20:40)
[2022-01-13] MEDS: DOCUSATE SODIUM 100 MG (COLACE) CAP PO SCH (21:29)
[2022-01-13] MEDS: SENNOSIDES 8.6 MG (SENOKOT) TAB PO SCH (21:29)
[2022-01-13] MEDS: SUCRALFATE 1 GM (CARAFATE) TAB PO SCH (21:29)
[2022-01-13] MEDS: morphine INJ 4 MG/ML 1 ML (VIAL/SYRINGE) IV PRN (23:52)
[2022-01-14] VITALS (21 sets, daily range): BP systolic 98–172; BP diastolic 45–99
[2022-01-14 01:20] LABS: HEMOGLOBIN 7.5 g/dL (11.5-16.0)
[2022-01-14] MEDS: NS IV 1000 ML 1,000 ML IV SCH ×2 (04:36→20:53)
[2022-01-14 04:46] LABS: BASOPHILS # (AUTO) 0.1 10^3/uL (0.0-0.1); BASOPHILS % (AUTO) 1 % (0-10); EOSINOPHILS # (AUTO) 0.1 10^3/uL (0.0-0.3); EOSINOPHILS % (AUTO) 1 % (0-10); HEMATOCRIT 22 % (35-52); HEMOGLOBIN 7.2 g/dL (11.5-16.0); LYMPHOCYTES # (AUTO) 2.4 10^3/uL (1.0-4.0); LYMPHOCYTES % (AUTO) 20 % (12-44); MEAN CORPUSCULAR HEMOGLOBIN 30 pg (25-34); MEAN CORPUSCULAR HGB CONC 33 g/dL (32-36); MEAN CORPUSCULAR VOLUME 93 fL (80-99); MONOCYTES # (AUTO) 0.8 10^3/uL (0.0-1.0); MONOCYTES % (AUTO) 7 % (0-12); NEUTROPHILS # (AUTO) 8.3 10^3/uL (1.8-7.8); NEUTROPHILS % (AUTO) 71 % (42-75); PLATELET COUNT 308 10^3/uL (130-400); WHITE BLOOD COUNT 11.7 10^3/uL (4.3-11.0)
[2022-01-14 04:57] LABS: ALBUMIN 3.1 GM/DL (3.2-4.5); CHLORIDE 106 MMOL/L (98-107); POTASSIUM 4.2 MMOL/L (3.6-5.0); SODIUM 138 MMOL/L (135-145)
[2022-01-14 04:58] LABS: CALCIUM 8.4 MG/DL (8.5-10.1)
[2022-01-14 04:59] LABS: GLUCOSE 128 MG/DL (70-105)
[2022-01-14 05:00] LABS: TOTAL PROTEIN 5.1 GM/DL (6.4-8.2)
[2022-01-14 05:01] LABS: BILIRUBIN,TOTAL 0.9 MG/DL (0.1-1.0); CARBON DIOXIDE 20 MMOL/L (21-32)
[2022-01-14 05:03] LABS: ALKALINE PHOSPHATASE 68 U/L (40-136); CREATININE SERUM 1.55 MG/DL (0.60-1.30); GFR ESTIMATED 37
[2022-01-14 05:04] LABS: BUN/CREATININE RATIO 41
[2022-01-14 05:06] LABS: ALANINE AMINOTRANSFERASE < 6 U/L (0-55)
[2022-01-14] MEDS: inSUlin ASPART (NovoLOG) 1 UNIT/0.01 ML (CHARGE PER UNIT) SC SCH ×4 (05:10→20:54)
[2022-01-14] MEDS: SUCRALFATE 1 GM (CARAFATE) TAB PO SCH ×4 (05:41→20:52)
[2022-01-14] MEDS: SENNOSIDES 8.6 MG (SENOKOT) TAB PO SCH ×2 (08:10→20:53)
[2022-01-14] MEDS: DOCUSATE SODIUM 100 MG (COLACE) CAP PO SCH ×2 (08:10→20:53)
[2022-01-14] MEDS: PANTOPRAZOLE 40 MG (PROTONIX) VIAL IV SCH (08:11)
[2022-01-14] MEDS ORDERED: ASPI-999 PO (09:20)
[2022-01-14] MEDS ORDERED: ATOR40TA70 PO (09:20)
[2022-01-14] MEDS ORDERED: CARV12.53 PO (09:20)
--- NOTE | 2022-01-14 09:22 | Consultation-Cardiology ---
HPI-Cardiology Cardiology Consultation: Date of Consultation 01/14/22 Date of Admission 01/13/22 Attending Physician Lillian Staley DO Admitting Physician Lillian Staley DO Consulting Physician OSCAR JERRY JR, MD HPI: Time Seen by a Provider: 09:17 Chief Complaint: Reason for consultation: Coronary artery disease with recent coronary stent now with probable gastrointestinal hemorrhage. I had the pleasure of seeing Geneva in the intensive care unit at [facility] in [place], [place] this morning. She normally follows with one of my partners. She has a history of coronary artery disease with a recent stent to the codominant right coronary artery on 01/01/2022. She presented to the hospital on 01/13/2022 following a syncopal spell. She also reported hematemesis. Her initial hemoglobin level was slightly lower than her previous hemoglobin level earlier this month but follow-up hemoglobin was further down. Because of her cardiac history with recent coronary stent, a cardiology consultation was requested. She states that yesterday around 5:30 in the morning she woke up on the floor next to her bed. She does not recall how she ended up on the floor. With the assistance of her , she was able to get up off the floor and went back to bed. She did realize that she had a laceration on her head and stopped the bleeding with some tissues. She went back to sleep and later in the morning got up and took a shower. While she was drying off she became extremely lightheaded and weak. Then she had a bowel movement and vomited bright red blood. Her bowel movement was very dark. At that time, she became concerned and came to the hospital. She was admitted to the intensive care unit for further treatment and evaluation. She is now receiving her second blood transfusion. Last evening while she was in the room, she had another syncopal spell. She denies any chest discomfort. Her symptom prior to the recent stent was dyspnea which improved following stent placement. The dyspnea has not recurred. She denies paroxysmal nocturnal dyspnea, orthopnea, or palpitations. She has chronic, intermittent mild bilateral ankle edema. Certain portions of this document may have been dictated utilizing voice recognition technology. Inherent to this technology, typographical and grammatical errors may exist. As much as I am diligent to identify and correct these mistakes, some errors may remain in the document. Review of Systems-Cardiology Review of Systems : No Other comments Review of 10 organ systems is as per the history of present illness, otherwise negative. All Other Systems Reviewed Negative Unless Noted: Yes [id number] Hx Patient Social History Marrital Status: Employed/Student: employed ([employer]) Smoking Status: Never a Smoker Have you traveled recently?: No Alcohol Use?: Yes Pt feels they are or have been: No Immunizations Up To Date Tetanus Booster (TDap): More than 5yrs Date of Influenza Vaccine: Aug 03, 2015 Past Medical History PMH As described under Assessment. Family Medical History Family History: Cardiovascular disease 19 FATHER Cataracts 19 MOTHER Colon cancer 19 MOTHER Completed stroke 19 MOTHER Hypertension 19 FATHER G8 SISTER Myocardial infarction 19 FATHER No Family History of: AIDS Porterfield's disease Alcoholism Alzheimer's disease Arthritis Asthma Dementia Diabetes mellitus Drug abuse Kidney disease Parkinson's disease Prostate cancer Respiratory disorder Thyroid disease Tuberculosis Allergies and Home Medications Allergies Coded Allergies: No Known Drug Allergies (Verified , 08/09/08) Patient Home Medication List Home Medication List Reviewed: Yes Amlodipine Besylate (Amlodipine Besylate) 10 Mg Tablet, 10 MG PO DAILY, (Reported) Entered as Reported by: RUBEN CORREA on 01/01/22858 Last Action: Reviewed Aspirin (Aspirin) 81 Mg Tab.chew, 81 MG PO HS, (Reported) Entered as Reported by: COLLEEN RANGEL on 01/14/22919 Last Action: Reviewed Atorvastatin Calcium (Atorvastatin Calcium) 40 Mg Tablet, 40 MG PO BID, (Reported) Entered as Reported by: COLLEEN RANGEL on 01/14/22919 Last Action: Reviewed Carvedilol (Carvedilol) 12.5 Mg Tablet, 25 MG PO BID, (Reported) Entered as Reported by: COLLEEN RANGEL on 01/14/22919 Last Action: Reviewed Cholecalciferol (Vitamin D3) (Vitamin D3) 25 Mcg Tablet, 25 MCG PO DAILY, (Reported) Entered as Reported by: RUBEN CORREA on 01/01/22858 Last Action: Reviewed Citalopram Hydrobromide (Citalopram HBr) 20 Mg Tablet, 20 MG PO DAILY, (Reported) Entered as Reported by: RUBEN CORREA on 01/01/22858 Last Action: Reviewed Clopidogrel Bisulfate (Clopidogrel) 75 Mg Tablet, 75 MG PO DAILY, (Reported) Entered as Reported by: RUBEN CORREA on 01/01/22858 Last Action: Reviewed Furosemide (Furosemide) 20 Mg Tablet, 20 MG PO DAILY, (Reported) Entered as Reported by: Ramona Ann on 01/13/22 163 Last Action: Reviewed Glyburide (Glyburide) 1.25 Mg Tablet, 1.25 MG PO BID WITH MEALS, (Reported) Entered as Reported by: RUBEN CORREA on 01/01/22858 Last Action: Reviewed Iron (Iron) 18 Mg Tablet, 18 MG PO DAILY, (Reported) Entered as Reported by: RUBEN CORREA on 01/01/22858 Last Action: Reviewed Lisinopril (Lisinopril) 40 Mg Tablet, 40 MG PO HS, (Reported) Entered as Reported by: RUBEN CORREA on 01/01/22858 Last Action: Reviewed Discontinued Medications Acetaminophen (Tylenol) 325 Mg Tablet, 650 MG PO Q6H PRN for PAIN-MILD (1-4), (Reported) Discontinued Reason: No Longer Taking Entered as Reported by: RUBEN CORREA on 01/01/22858 Last Action: Discontinued Aspirin (Children's Aspirin) 81 Mg Tab.chew, 81 MG PO DAILY Discontinued Reason: Duplicate Order Prescribed by: VIVEK COLON on 01/02/22816 Last Action: Discontinued Atorvastatin Calcium (Atorvastatin Calcium) 20 Mg Tablet, 20 MG PO BID, (Reported) Discontinued Reason: Duplicate Order Entered as Reported by: ERIC GARZON on 11/30/19 1444 Last Action: Discontinued Carvedilol (Carvedilol) 25 Mg Tablet, 25 MG PO BID, (Reported) Discontinued Reason: Duplicate Order Entered as Reported by: RUBEN CORREA on 01/01/22858 Last Action: Discontinued Polyethylene Glycol 400 (Visine Dry Eye Relief) 30 Ml Drops, 1 DROP OU DAILY PRN for DRY EYES, (Reported) Discontinued Reason: No Longer Taking Entered as Reported by: RUBEN CORREA on 01/01/22858 Last Action: Discontinued Exam Vital Signs Vital Signs Date Time Temp Pulse Resp B/P (MAP) Pulse Ox O2 Delivery O2 Flow Rate FiO2 01/14/22 11:40 98 Room Air 01/14/22 11:00 36.9 76 15 120/55 Physical Exam General: Alert. No acute distress. Well nourished and appears stated age. She is morbidly obese. Eye: Extraocular movements are intact. Conjunctivae are clear. There are no xanthelasma. HENT: Normocephalic.Right periorbital ecchymoses and right eyebrow area has a laceration which is sutured. Carotid pulsations 2/2 without bruits. Neck: Jugular venous pressure does not appear elevated. No thyromegaly appreciated. Respiratory: Lungs are clear to auscultation. Respirations are non-labored. Breath sounds are equal. Symmetrical chest wall expansion. Cardiovascular: Normal rate. Regular rhythm. No murmur. No gallop. Point of maximal impulse is not appear displaced. Good pulses equal in all extremities. 1+ bilateral pretibial edema. Gastrointestinal: Soft. Normal bowel sounds. Skin: Skin turgor is normal. There is no pallor. Musculoskeletal: No kyphosis or scoliosis appreciated. Neurologic: Alert and oriented to person, place, time. Cranial nerves 3-12 appear grossly intact. The patient has good motor tone strength in the upper and lower extremities bilaterally. Psychiatric: Cooperative. Appropriate mood & affect. Labs Laboratory Tests Test 01/13/22 14:10 01/13/22 18:07 01/13/22 21:24 01/14/22 01:03 Range/Units Glucometer 160 H 161 H 70-110 MG/DL Hemoglobin 7.3 L 7.5 L 11.5-16.0 g/dL Hematocrit 23 L 23 L 35-52 % Test 01/14/22 04:29 01/14/22 11:04 Range/Units White Blood Count 11.7 H 4.3-11.0 10^3/uL Red Blood Count 2.37 L 3.80-5.11 10^6/uL Hemoglobin 7.2 L 11.5-16.0 g/dL Hematocrit 22 L 35-52 % Mean Corpuscular Volume 93 80-99 fL Mean Corpuscular Hemoglobin 30 25-34 pg Mean Corpuscular Hemoglobin Concent 33 32-36 g/dL Red Cell Distribution Width 16.1 H 10.0-14.5 % Platelet Count 308 130-400 10^3/uL Mean Platelet Volume 10.0 9.0-12.2 fL Immature Granulocyte % (Auto) 0 % Neutrophils (%) (Auto) 71 42-75 % Lymphocytes (%) (Auto) 20 12-44 % Monocytes (%) (Auto) 7 0-12 % Eosinophils (%) (Auto) 1 0-10 % Basophils (%) (Auto) 1 0-10 % Neutrophils # (Auto) 8.3 H 1.8-7.8 10^3/uL Lymphocytes # (Auto) 2.4 1.0-4.0 10^3/uL Monocytes # (Auto) 0.8 0.0-1.0 10^3/uL Eosinophils # (Auto) 0.1 0.0-0.3 10^3/uL Basophils # (Auto) 0.1 0.0-0.1 10^3/uL Immature Granulocyte # (Auto) 0.1 0.0-0.1 10^3/uL Sodium Level 138 135-145 MMOL/L Potassium Level 4.2 3.6-5.0 MMOL/L Chloride Level 106 98-107 MMOL/L Carbon Dioxide Level 20 L 21-32 MMOL/L Anion Gap 12 5-14 MMOL/L Blood Urea Nitrogen 64 H 7-18 MG/DL Creatinine 1.55 H 0.60-1.30 MG/DL Estimat Glomerular Filtration Rate 37 BUN/Creatinine Ratio 41 Glucose Level 128 H 70-105 MG/DL Calcium Level 8.4 L 8.5-10.1 MG/DL Corrected Calcium 9.1 8.5-10.1 MG/DL Total Bilirubin 0.9 0.1-1.0 MG/DL Aspartate Amino Transf (AST/SGOT) 10 5-34 U/L Alanine Aminotransferase (ALT/SGPT) < 6 0-55 U/L Alkaline Phosphatase 68 40-136 U/L Total Protein 5.1 L 6.4-8.2 GM/DL Albumin 3.1 L 3.2-4.5 GM/DL Glucometer 156 H 70-110 MG/DL Radiology CARDIAC CATHETERIZATION AND PERCUTANEOUS CORONARY INTERVENTION (01/01/2022): 1. Coronary artery disease primarily consisting of 80% proximal stenosis of a codominant right coronary artery. This was successfully stented with Skypoint 2.75 x 12 mm stent. No other significant lesions are seen. 2. Elevated left ventricular end-diastolic pressure. ECG Impression ECG Comment Electrocardiogram from the emergency room on 01/13 shows sinus rhythm with borderline left axis deviation at -[address] changes. Diagnosis/Problems Diagnosis/Problems (1) Coronary artery disease without angina pectoris Assessment & Plan: She had a recent coronary stent as outlined above. Her anginal symptom prior to the stent was dyspnea. She has not had any recurrent dyspnea. Aspirin and clopidogrel are now on hold due to probable upper gastrointestinal hemorrhage which has required 2 blood transfusions so far. She will need to resume her aspirin and clopidogrel as soon as possible. If she has any chest discomfort or dyspnea, she should have an electrocardiogram at that time. As long as she is not taking aspirin and clopidogrel, she is at risk of subacute stent thrombosis. She should resume all other cardiac medications when able. (2) Syncope Status: Acute Assessment & Plan: Unclear whether or not this could have been related to the gastrointestinal hemorrhage, anemia, or possibly a vasovagal spell or some combination of the above. We will continue to monitor her on telemetry for any signs of arrhythmias. (3) Primary hypertension Assessment & Plan: Resume outpatient antihypertensive medication when able. (4) Mixed hyperlipidemia Assessment & Plan: I have reordered her atorvastatin. Her outpatient medication reconciliation states she was taking 40 mg of atorvastatin twice daily. This is somewhat unusual. I have taken the liberty to order atorvastatin 80 mg once daily. (5) Acute blood loss anemia Assessment & Plan: This is probably due to her upper gastrointestinal hemorrhage. She has been seen by general surgery who plans on upper endoscopy tomorrow. (6) Stage 3a chronic kidney disease Assessment & Plan: We will need to follow her renal function closely. (7) Type 2 diabetes mellitus with complication Assessment & Plan: This is being managed by the hospitalist. (8) Morbid obesity Assessment & Plan: She needs to work on weight loss. Problem Qualifiers (1) Syncope: Syncope type: unspecified Qualified Codes: R55 - Syncope and collapse OSCAR JERRY JR, MD Jan 14, 2022 09:22
--- NOTE | 2022-01-14 09:50 | Tele-ICU Progress Note ---
Subjective Date Seen by a Provider: Jan 14, 2022 Time Seen by a Provider: 09:50 Subjective/Events-last exam (Tele-ICU Physician , Progress Note ) Available chart/ vitals / labs / Images reviewed Video assessment done using teleICU camera, rest of exam as per RN Discussed with RN , EXAM PER RN Events overnight : Afebrile FiO2 - ra I/O = neg Drips: Pressors: , hemodynamically stable Consultants: Hospital course: (01/13) 66F Admitted s/p syncope/fall, contusion right thigh, laceration right eyebrow, GI bleed, MATT w/mild hyperkalemia. Only has one kidney. Head CT NEG for acute process. A/P Acute GI bleed ( on Plaxix - sx consulted - ? scope ABLA on chronic anemia - transfuse PRN CAD - s/p recent stent in RCA - on Plavix CKD -Solo kidney Dm II -ISS DM II - VLADIMIR - on CPAP Pulmonary hypertension - RVSP 40 mmHg by ECHO 09/2021 Lines : (Central Line Necessity Reviewed) Bran: OG: Nutrition: Analgesia: Anxiety/ delirium VTE Prophylaxis: scd Stress Ulcer Prophylaxis: ppi Plans in collaboration with bedside consultants and IM MDs. Discussed with RN to reach out if any questions or concerns A total of 15 minutes of critical care time was devoted to this patient today, required to treat and/or prevent further deterioration of critical care condition ( as above) . SIGN OFF " ICU CONSULT " CONTINUE TO MONITOR PER USUAL TELE-ICU P ROTOCOL Sepsis Event Evaluation Height, Weight, BMI Height: 5'4.00" Weight: 265lbs. 0.0oz. 120.338349tb; 46.14 BMI Method: Exam Exam Patient acknowledged, consented, and participated in this virtual visit which was conducted using real time audio/video Vital Signs Date Time Temp Pulse Resp B/P (MAP) Pulse Ox O2 Delivery O2 Flow Rate FiO2 01/14/22 09:19 36.9 76 16 120/45 95 Room Air 01/14/22 09:04 36.8 75 16 125/55 95 Room Air 01/14/22 08:12 98 Room Air 01/14/22 07:00 72 01/14/22 07:00 76 16 98/46 (63) 94 Room Air 01/14/22 05:00 76 13 104/49 (67) 93 Room Air 01/14/22 04:00 37.0 Room Air 01/14/22 04:00 98 Room Air 01/14/22 04:00 85 24 104/52 (69) 96 Room Air 01/14/22 03:00 78 12 98/45 (62) 93 Room Air 01/14/22 02:00 77 16 92 Room Air 01/14/22 01:00 81 01/14/22 01:00 76 13 103/60 (74) 95 Room Air 01/14/22 00:00 37.0 82 20 128/60 (82) 94 Room Air 01/14/22 00:00 82 17 109/64 (79) 93 Room Air 01/13/22 23:56 98 Room Air 01/13/22 23:50 37.0 82 22 128/60 94 Room Air 01/13/22 23:00 82 16 128/60 (82) 95 Room Air 01/13/22 22:45 79 20 119/57 98 Room Air 01/13/22 22:30 82 22 112/53 98 Room Air 01/13/22 22:15 37.0 80 21 112/57 98 Room Air 01/13/22 22:00 79 18 119/57 (77) 96 Room Air 01/13/22 22:00 36.9 81 16 117/55 96 Room Air 01/13/22 21:47 36.8 78 18 126/59 97 Room Air 01/13/22 21:00 81 21 126/59 (81) 99 Room Air 01/13/22 20:58 36.8 82 18 116/57 99 Room Air 01/13/22 20:45 80 20 112/53 98 Room Air 01/13/22 20:30 82 20 116/53 98 Room Air 01/13/22 20:15 90 20 113/54 98 Room Air 01/13/22 20:00 98 Room Air 01/13/22 20:00 36.7 90 22 108/62 98 Room Air 01/13/22 20:00 36.2 88 20 108/62 Room Air 01/13/22 20:00 36.7 90 22 124/62 (82) 98 Room Air 01/13/22 19:50 36.8 90 22 124/67 97 Room Air 01/13/22 19:44 36.9 87 22 141/47 94 Room Air 01/13/22 19:00 86 01/13/22 19:00 86 17 141/47 (78) 95 Room Air 01/13/22 18:00 82 23 134/55 (81) 95 Room Air 01/13/22 17:00 79 28 119/59 (79) 95 Room Air 01/13/22 16:00 75 20 108/58 (75) 96 Room Air 01/13/22 16:00 95 Room Air 01/13/22 15:00 71 117/54 96 Room Air 01/13/22 14:42 96 Room Air 01/13/22 14:23 36.3 71 16 115/50 95 Room Air 01/13/22 14:00 72 22 115/50 (71) 96 Room Air 01/13/22 14:00 72 22 115/50 96 Room Air 01/13/22 13:59 79 01/13/22 13:37 72 16 127/67 97 Room Air 01/13/22 12:03 63 108/48 71 114/56 76 120/75 01/13/22 10:30 35.4 68 21 150/108 (122) 97 Room Air I & O 01/14/22 07:00 Intake Total 1000 ml Output Total 1600 ml Balance -600 ml Height & Weight Height: 5'4.00" Weight: 265lbs. 0.0oz. 120.109944wv; 46.14 BMI Method: General Appearance: No Apparent Distress, WD/WN, Chronically ill HEENT: PERRL/EOMI, Normal ENT Inspection, Pharynx Normal, Pale Conjunctivae ( L), Pale Conjunctivae (R), Other (intraoral pallor; ecchymoses upper and lower right eye. 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 AHSAN ESTEVEZ MD Jan 14, 2022 09:50
--- NOTE | 2022-01-14 09:53 | Tele-ICU Progress Note ---
Subjective Date Seen by a Provider: Jan 14, 2022 Time Seen by a Provider: 09:53 Subjective/Events-last exam (Tele-ICU Physician , Progress Note ) Available chart/ vitals / labs / Images reviewed Video assessment done using teleICU camera, rest of exam as per RN Discussed with RN , EXAM PER RN Events overnight : Afebrile Pressors: , hemodynamically stable A/P ETOH abuse / intoxication / pending withdrawal syndrome -No hallucinations. No seizures - monitor -Continue supportive care on [facility] protocol -Thiamine and folate VTE Prophylaxis: Stress Ulcer Prophylaxis: ppi Plans in collaboration with bedside consultants and IM MDs. Discussed with RN to reach out if any questions or concerns A total of 10 minutes of critical care time was devoted to this patient today, required to treat and/or prevent further deterioration of critical care condition ( as above) . SIGN OFF " ICU CONSULT " CONTINUE TO MONITOR PER USUAL TELE-ICU PROTOCOL Sepsis Event Evaluation Height, Weight, BMI Height: 5'4.00" Weight: 265lbs. 0.0oz. 120.663557jr; 46.14 BMI Method: Exam Exam Patient acknowledged, consented, and participated in this virtual visit which was conducted using real time audio/video Vital Signs Date Time Temp Pulse Resp B/P (MAP) Pulse Ox O2 Delivery O2 Flow Rate FiO2 01/14/22 09:19 36.9 76 16 120/45 95 Room Air 01/14/22 09:04 36.8 75 16 125/55 95 Room Air 01/14/22 08:12 98 Room Air 01/14/22 07:00 72 01/14/22 07:00 76 16 98/46 (63) 94 Room Air 01/14/22 05:00 76 13 104/49 (67) 93 Room Air 01/14/22 04:00 37.0 Room Air 01/14/22 04:00 98 Room Air 01/14/22 04:00 85 24 104/52 (69) 96 Room Air 01/14/22 03:00 78 12 98/45 (62) 93 Room Air 01/14/22 02:00 77 16 92 Room Air 01/14/22 01:00 81 01/14/22 01:00 76 13 103/60 (74) 95 Room Air 01/14/22 00:00 37.0 82 20 128/60 (82) 94 Room Air 01/14/22 00:00 82 17 109/64 (79) 93 Room Air 01/13/22 23:56 98 Room Air 01/13/22 23:50 37.0 82 22 128/60 94 Room Air 01/13/22 23:00 82 16 128/60 (82) 95 Room Air 01/13/22 22:45 79 20 119/57 98 Room Air 01/13/22 22:30 82 22 112/53 98 Room Air 01/13/22 22:15 37.0 80 21 112/57 98 Room Air 01/13/22 22:00 79 18 119/57 (77) 96 Room Air 01/13/22 22:00 36.9 81 16 117/55 96 Room Air 01/13/22 21:47 36.8 78 18 126/59 97 Room Air 01/13/22 21:00 81 21 126/59 (81) 99 Room Air 01/13/22 20:58 36.8 82 18 116/57 99 Room Air 01/13/22 20:45 80 20 112/53 98 Room Air 01/13/22 20:30 82 20 116/53 98 Room Air 01/13/22 20:15 90 20 113/54 98 Room Air 01/13/22 20:00 98 Room Air 01/13/22 20:00 36.7 90 22 108/62 98 Room Air 01/13/22 20:00 36.2 88 20 108/62 Room Air 01/13/22 20:00 36.7 90 22 124/62 (82) 98 Room Air 01/13/22 19:50 36.8 90 22 124/67 97 Room Air 01/13/22 19:44 36.9 87 22 141/47 94 Room Air 01/13/22 19:00 86 01/13/22 19:00 86 17 141/47 (78) 95 Room Air 01/13/22 18:00 82 23 134/55 (81) 95 Room Air 01/13/22 17:00 79 28 119/59 (79) 95 Room Air 01/13/22 16:00 75 20 108/58 (75) 96 Room Air 01/13/22 16:00 95 Room Air 01/13/22 15:00 71 117/54 96 Room Air 01/13/22 14:42 96 Room Air 01/13/22 14:23 36.3 71 16 115/50 95 Room Air 01/13/22 14:00 72 22 115/50 (71) 96 Room Air 01/13/22 14:00 72 22 115/50 96 Room Air 01/13/22 13:59 79 01/13/22 13:37 72 16 127/67 97 Room Air 01/13/22 12:03 63 108/48 71 114/56 76 120/75 01/13/22 10:30 35.4 68 21 150/108 (122) 97 Room Air I & O 01/14/22 07:00 Intake Total 1000 ml Output Total 1600 ml Balance -600 ml Height & Weight Height: 5'4.00" Weight: 265lbs. 0.0oz. 120.198030bd; 46.14 BMI Method: General Appearance: No Apparent Distress, WD/WN, Chronically ill HEENT: PERRL/EOMI, Normal ENT Inspection, Pharynx Normal, Pale Conjunctivae (L), Pale Conjunctivae (R), Other (intraoral pallor; ecchymoses upper and lower right eye. 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 AHSAN ESTEVEZ MD Jan 14, 2022 09:53
[2022-01-14] MEDS ORDERED: MAGNESIUM CITRATE 300 ML BTL PO SCH (11:00)
--- NOTE | 2022-01-14 11:25 | Progress Note ---
LACY MCKEON 01/14/22 1125: Subjective Date Seen by a Provider: Jan 14, 2022 Time Seen by a Provider: 08:45 Subjective/Events-last exam Chief complaint: GI bleed History of present illness: This is a 66-year-old white female clinic patient of [facility] with recent stent placement in RCA and placement on Plavix who presented to the ER after a syncopal episode at home and a large amount of hematemesis and melena. It is presumed she has an upper GI bleed and Dr. Villar been consulted. Serial hematocrits will be ordered and will require transfusion for less than 8.0 hemoglobin. Currently she is doing a lot better but will require close monitoring along with cardiology consultation. Subjective/Events-last exam Patient reports that she is feeling much better. Has not had hematemesis or emesis since admission. Is not having abdominal pain. Hgb this morning was at 7.2. Patient has now received a total of 2 units blood and 1 unit platelets. BUN and Cr still elevated. Review of Systems General: No Chills, No Night Sweats, No Fatigue HEENT: No Head Aches, No Visual Changes Pulmonary: No Dyspnea, No Cough Cardiovascular: No: Chest Pain, Palpitations Gastrointestinal: No: Nausea, Vomiting, Abdominal Pain, Diarrhea, Melena, Hematochezia Genitourinary: No Dysuria, No Frequency Musculoskeletal: No: back pain Neurological: No: Numbness, Change in speech, Confusion Objective Exam Last Set of Vital Signs Vital Signs Date Time Temp Pulse Resp B/P (MAP) Pulse Ox O2 Delivery O2 Flow Rate FiO2 01/14/22 11:00 36.9 76 15 120/55 95 Room Air Capillary Refill : Less Than 3 Seconds I&O Intake and Output 01/14/22 00:00 Intake Total 0 ml Output Total 1100 ml Balance -1100 ml Intake Oral 0 ml Output Urine Total 300 ml Gastric Drainage Total 100 ml Emesis 700 ml Daily Weight Change No General: Alert, Oriented X3, No Acute Distress HEENT: Other (intraoral pallor; ecchymoses upper and lower right eye. superficial lac right eyebrow) Lungs: Clear to Auscultation, Normal Air Movement Heart: Regular Rate Abdomen: Normal Bowel Sounds Skin: Other ((2.5cm angulated lac over right eyebrow; superficial)) Psych/Mental Status: Mental Status NL, Mood NL Results Lab Laboratory Tests 01/13/22 14:10: Glucometer 160H 01/13/22 18:07: Hemoglobin 7.3L, Hematocrit 23L 01/13/22 21:24: Glucometer 161H 01/14/22 01:03: Hemoglobin 7.5L, Hematocrit 23L 01/14/22 04:29: White Blood Count 11.7H, Red Blood Count 2.37L, Hemoglobin 7.2L, Hematocrit 22L, Mean Corpuscular Volume 93, Mean Corpuscular Hemoglobin 30, Mean Corpuscular Hemoglobin Concent 33, Red Cell Distribution Width 16.1H, Platelet Count 308, Mean Platelet Volume 10.0, Immature Granulocyte % (Auto) 0, Neutrophils (%) (Auto) 71, Lymphocytes (%) (Auto) 20, Monocytes (%) (Auto) 7, Eosinophils (%) (Auto) 1, Basophils (%) (Auto) 1, Neutrophils # (Auto) 8.3H, Lymphocytes # (Auto) 2.4, Monocytes # (Auto) 0.8, Eosinophils # (Auto) 0.1, Basophils # (Auto) 0.1, Immature Granulocyte # (Auto) 0.1, Sodium Level 138, Potassium Level 4.2, Chloride Level 106, Carbon Dioxide Level 20L, Anion Gap 12, Blood Urea Nitrogen 64H, Creatinine 1.55H, Estimat Glomerular Filtration Rate 37, BUN/Creatinine Ratio 41, Glucose Level 128H, Calcium Level 8.4L, Corrected Calcium 9.1, Total Bilirubin 0.9, Aspartate Amino Transf (AST/SGOT) 10, Alanine Aminotransferase (ALT/SGPT) < 6, Alkaline Phosphatase 68, Total Protein 5.1L, Albumin 3.1L 01/14/22 11:04: Glucometer 156H Assessment/Plan Assessment/Plan Assess & Plan/Chief Complaint Assessment: Acute GI bleed Acute on chronic anemia- Hgb 9.0 on admission Acute blood loss anemia likely will require transfusion Recent stent in RCA (Coronary artery disease primarily consisting of 80% proximal stenosis of a codominant right coronary artery. This was successfully stented with Skypoint 2.75 x 12 mm stent) by cardiology 01/01/22 maintained on Plavix Chronic kidney disease Solo kidney Hypertension Diabetes Obstructive sleep apnea on CPAP Pulmonary hypertension Plan: 01/13/2022: Supportive care Transfuse as necessary Dr. BARBOSA consult for scopes Cardiology consult 01/14/2022: Supportive care Hgb at 7.2 Patient has received 2 units blood and 1 unit platelets Clinical Quality Measures DVT/VTE Risk/Contraindication: Contraindications-Pharm: Other *list below* Other: LILLIAN Zaragoza DO 01/15/22 0531: Subjective Subjective/Events-last exam Pt is doing a lot better Second unit of blood ordered Vitals remain stable Improved pain in her mid epigastric region NG tube placed and she is doing a lot better now EGD and colonoscopy tomorrow Dr. Park will be consulted for Plavix and Aspirin maintenance Orthostatic hypotension noted Review of Systems General: Fatigue, Malaise Gastrointestinal: Melena, Hematochezia Neurological: Weakness Objective Exam General: Alert, Oriented X3, Cooperative, Other (Weak and pale) Lungs: Clear to Auscultation, Normal Air Movement Heart: Regular Rate, Normal S1, Normal S2, No Murmurs Psych/Mental Status: Mental Status NL, Mood NL Assessment/Plan Assessment/Plan Assess & Plan/Chief Complaint Assessment: Acute GI bleed Acute on chronic anemia Acute blood loss anemia status post 2 units of transfusion Orthostatic hypotension Recent stent in RCA (Coronary artery disease primarily consisting of 80% proximal stenosis of a codominant right coronary artery. This was successfully stented with Skypoint 2.75 x 12 mm stent) by cardiology 01/01/22 maintained on Plavix Chronic kidney disease Solo kidney Hypertension Diabetes Obstructive sleep apnea on CPAP Pulmonary hypertension Plan: Supportive care Transfuse as necessary Dr. BARBOSA consult for scopes 01/14/2022: Transfuse Cardiology consult Supervisory-Addendum Brief Verification & Attestation Participated in pt care: history, MDM, physical Personally performed: exam, history, MDM, supervision of care Care discussed with: Medical Student Procedures: n/a Results interpretation: Verified all documentation Verification and Attestation of Medical Student E/M Service A medical student performed and documented this service in my presence. I reviewed and verified all information documented by the medical student and made modifications to such information, when appropriate. I personally performed the physical exam and medical decision making. Lillian Stevenson Jan 15, 2022,05:25 LACY MCKEON Jan 14, 2022 11:25 LILLIAN STEVENSON DO Jan 15, 2022 05:31
[2022-01-14] MEDS: ONDANSETRON 4 MG (ZOFRAN) ORAL DISSOLVE TAB PO PRN (14:04)
[2022-01-14 14:05] LABS: HEMATOCRIT 25 % (35-52); HEMOGLOBIN 8.3 g/dL (11.5-16.0); MEAN CORPUSCULAR HEMOGLOBIN 31 pg (25-34); MEAN CORPUSCULAR HGB CONC 33 g/dL (32-36); MEAN CORPUSCULAR VOLUME 93 fL (80-99); MEAN PLATELET VOLUME 9.7 fL (9.0-12.2); PLATELET COUNT 290 10^3/uL (130-400); WHITE BLOOD COUNT 14.6 10^3/uL (4.3-11.0)
[2022-01-14] MEDS: ENOXAPARIN 40 MG/0.4 ML (LOVENOX) SYR SC SCH (16:19)
--- NOTE | 2022-01-14 17:20 | Progress Note ---
Standard Progress Note Progress Notes/Assess & Plan Date Seen by a Provider: Jan 14, 2022 Time Seen by a Provider: 17:00 Progress/Assessment & Plan does have continued dark NGT output but has slowed down. hb stable 7.2 cont monitor H/H. EGD and colonoscopy tomorrow. DEMOND BARBOSA MD Jan 14, 2022 17:20
--- NOTE | 2022-01-14 18:28 | Progress Note-Pre Operative ---
Pre-Operative Progress Note H&P Reviewed The H&P was reviewed, patient examined and no changes noted. Date Seen by Provider: Jan 14, 2022 Time Seen by Provider: 18:00 Date H&P Reviewed: Jan 14, 2022 Time H&P Reviewed: 18:00 Pre-Operative Diagnosis: anemia, GI bleed DEMOND BARBOSA MD Jan 14, 2022 18:28
[2022-01-14] MEDS: PANTOPRAZOLE INJECTION 200 MG in NS (IVPB) 100 ML IV SCH (20:53)
[2022-01-15] VITALS (11 sets, daily range): BP systolic 86–135; BP diastolic 42–66
[2022-01-15] MEDS: ENOXAPARIN 40 MG/0.4 ML (LOVENOX) SYR SC SCH ×2 (04:14→15:52)
[2022-01-15] MEDS: morphine INJ 4 MG/ML 1 ML (VIAL/SYRINGE) IV PRN (04:21)
[2022-01-15 04:42] LABS: BASOPHILS # (AUTO) 0.1 10^3/uL (0.0-0.1); BASOPHILS % (AUTO) 1 % (0-10); EOSINOPHILS # (AUTO) 0.1 10^3/uL (0.0-0.3); EOSINOPHILS % (AUTO) 1 % (0-10); HEMATOCRIT 23 % (35-52); HEMOGLOBIN 7.5 g/dL (11.5-16.0); LYMPHOCYTES # (AUTO) 1.2 10^3/uL (1.0-4.0); LYMPHOCYTES % (AUTO) 8 % (12-44); MEAN CORPUSCULAR HEMOGLOBIN 31 pg (25-34); MEAN CORPUSCULAR HGB CONC 33 g/dL (32-36); MEAN CORPUSCULAR VOLUME 95 fL (80-99); MEAN PLATELET VOLUME 9.8 fL (9.0-12.2); MONOCYTES # (AUTO) 1.1 10^3/uL (0.0-1.0); MONOCYTES % (AUTO) 8 % (0-12); NEUTROPHILS % (AUTO) 83 % (42-75); PLATELET COUNT 243 10^3/uL (130-400); WHITE BLOOD COUNT 14.5 10^3/uL (4.3-11.0)
[2022-01-15 04:57] LABS: ALBUMIN 3.3 GM/DL (3.2-4.5)
[2022-01-15 04:58] LABS: CHLORIDE 110 MMOL/L (98-107); POTASSIUM 4.3 MMOL/L (3.6-5.0); SODIUM 141 MMOL/L (135-145)
[2022-01-15 04:59] LABS: CALCIUM 8.3 MG/DL (8.5-10.1)
[2022-01-15 05:00] LABS: GLUCOSE 143 MG/DL (70-105); TOTAL PROTEIN 5.7 GM/DL (6.4-8.2)
[2022-01-15 05:01] LABS: CARBON DIOXIDE 21 MMOL/L (21-32)
[2022-01-15 05:02] LABS: BILIRUBIN,TOTAL 0.8 MG/DL (0.1-1.0)
[2022-01-15 05:03] LABS: ALKALINE PHOSPHATASE 71 U/L (40-136)
[2022-01-15 05:04] LABS: CREATININE SERUM 1.48 MG/DL (0.60-1.30); GFR ESTIMATED 39
[2022-01-15 05:05] LABS: BUN/CREATININE RATIO 28
[2022-01-15 05:06] LABS: ALANINE AMINOTRANSFERASE < 6 U/L (0-55)
[2022-01-15] MEDS: SUCRALFATE 1 GM (CARAFATE) TAB PO SCH ×4 (06:35→21:00)
[2022-01-15] MEDS: inSUlin ASPART (NovoLOG) 1 UNIT/0.01 ML (CHARGE PER UNIT) SC SCH ×4 (06:35→21:37)
--- NOTE | 2022-01-15 08:34 | Progress Note - Cardiology ---
Cardiology SOAP Progress Note Subjective: Lying in bed C/O fatigue No c/o CP or SOB Objective: I&O/Vital Signs 01/15/22 01/15/22 01/15/22 01/15/22 04:00 04:00 07:00 08:00 Temp 37.2 Pulse 76 76 73 Resp 18 19 B/P (MAP) 124/59 (80) 128/61 (83) Pulse Ox 95 O2 Delivery Room Air Room Air 01/15/22 01/15/22 01/15/22 01/15/22 08:00 08:21 12:00 12:00 Temp 36.7 37.1 Pulse 79 Resp 15 B/P (MAP) 134/63 (86) Pulse Ox 93 97 O2 Delivery Room Air Room Air 01/15/22 13:00 Pulse 73 01/14/22 23:59 Intake Total 550 ml Output Total 700 ml Balance -150 ml Weight (Pounds): 265 Weight (Ounces): 0.0 Weight (Calculated Kilograms): 120.382973 Constitutional: AAO x 3, well-developed, well-nourished Respiratory: No accessory muscle use, No respiratory distress; chest expansion is symmetric, chest is bilaterally symmetric, lungs clear to auscultation Cardiovascular: regular rate-rhythm; No JVD; S1 and S2 Gastrointestional: No guarding; audible bowel sounds, other (NG tube in place) Extremities: no lower extremity edema bilateral Neurologic/Psychiatric: other (moves all extremities) Skin: No rash on exposed areas, No ulcerations on exposed areas Results/Procedures: Labs Laboratory Tests 01/14/22 15:01: Lab Scanned Report Transfusion Reaction Form 01/14/22 16:03: Glucometer 134H 01/14/22 20:44: Glucometer 146H 01/15/22 04:24: White Blood Count 14.5H, Red Blood Count 2.44L, Hemoglobin 7.5L, Hematocrit 23L, Mean Corpuscular Volume 95, Mean Corpuscular Hemoglobin 31, Mean Corpuscular Hemoglobin Concent 33, Red Cell Distribution Width 16.0H, Platelet Count 243, Mean Platelet Volume 9.8, Immature Granulocyte % (Auto) 1, Neutrophils (%) (Auto) 83H, Lymphocytes (%) (Auto) 8L, Monocytes (%) (Auto) 8, Eosinophils (%) (Auto) 1, Basophils (%) (Auto) 1, Neutrophils # (Auto) 12.0H, Lymphocytes # (Auto) 1.2, Monocytes # (Auto) 1.1H, Eosinophils # (Auto) 0.1, Basophils # (Auto) 0.1, Immature Granulocyte # (Auto) 0.1, Sodium Level 141, Potassium Level 4.3, Chloride Level 110H, Carbon Dioxide Level 21, Anion Gap 10, Blood Urea Nitrogen 41H, Creatinine 1.48H, Estimat Glomerular Filtration Rate 39, BUN/Creatinine Ratio 28, Glucose Level 143H, Calcium Level 8.3L, Corrected Calcium 8.9, Total Bilirubin 0.8, Aspartate Amino Transf (AST/SGOT) 8, Alanine Aminotransferase (ALT/SGPT) < 6, Alkaline Phosphatase 71, Total Protein 5.7L, Albumin 3.3 01/15/22 10:40: Glucometer 138H Microbiology 01/13/22 MRSA Screen - Final, Complete MRSA not isolated A/P: Assessment: Suspected GIB - mangement per Dr. Bundy - awaiting endoscopy - worsening anemia despite transfusions CAD - Echocardiogram of 10-10-[address] Andrade showed LEF 60-65%. RA and LA mildly dilated. PASP 40-45 mmHg - MPI of 12-04-21: This study is indicative of a moderate amount of anterior ischemia. Normal regional wall motion. Normal global left ventricular systolic function with a calculated ejection fraction of 64%. - Cardiac cath of 01-02-22 following abn MPI (as noted above): Coronary artery disease primarily consisting of 80% proximal stenosis of a codominant right coronary artery. This was successfully stented with Skypoint 2.75 x 12 mm stent. No other significant lesions are seen. 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 Bundy She has had recent coronary stent placed 01-02-2022 for which she has been on DAPT. This is currently being withheld d/t probable GIB with worsening anemia despite transfusions. This places her at risk for in stent thrombosis. We advise endoscopy be done to determine and treat source of bleeding so that at least Plavix may be resumed. Dr. Irby has spoken with Dr. Bundy on 01-14-22 and he has agreed to low dose enoxaparin, which may provide some protection, but not as good as Plavix. Monitor lab Anemia being managed by medical/surgical services We have reviewed her hospitalization records per Dr. Park in detail VIVEK COLON Jan 15, 2022 08:34
[2022-01-15] MEDS: SENNOSIDES 8.6 MG (SENOKOT) TAB PO SCH ×2 (08:57→21:00)
[2022-01-15] MEDS: PANTOPRAZOLE 40 MG (PROTONIX) VIAL IV SCH ×2 (08:57→22:20)
[2022-01-15] MEDS: NS IV 1000 ML 1,000 ML IV SCH ×2 (08:57→22:31)
[2022-01-15] MEDS: DOCUSATE SODIUM 100 MG (COLACE) CAP PO SCH ×2 (08:58→21:00)
--- NOTE | 2022-01-15 10:32 | Progress Note ---
LACY MCKEON 01/15/22 1032: Subjective Date Seen by a Provider: Jan 15, 2022 Time Seen by a Provider: 08:09 Subjective/Events-last exam Chief complaint: GI bleed History of present illness: This is a 66-year-old white female clinic patient of Dr. Stevenson with recent stent placement in RCA and placement on Plavix who presented to the ER after a syncopal episode at home and a large amount of hematemesis and melena. It is presumed she has an upper GI bleed and Dr. Bundy's been consulted. Serial hematocrits will be ordered and will require transfusion for less than 8.0 hemoglobin. Currently she is doing a lot better but will require close monitoring along with cardiology consultation. Subjective/Events-last exam Patient reports she is feeling tired, about the same from yesterday. Had blood in her stool during the bowel prep for the EGD and Colonoscopy that will be done today. Hemoglobin at 7.5 today, down from Hgb of 8.3 yesterday. Kidney function improving with BUN and Cr decreasing. Review of Systems General: No Chills, No Night Sweats; Fatigue, Malaise HEENT: No Head Aches, No Visual Changes Pulmonary: No Dyspnea, No Cough Cardiovascular: No: Chest Pain, Palpitations Gastrointestinal: Melena, Hematochezia; No: Nausea, Vomiting, Diarrhea Genitourinary: No Dysuria, No Frequency Musculoskeletal: No: back pain Neurological: Weakness; No: Numbness, Change in speech, Confusion Objective Exam Last Set of Vital Signs Vital Signs Date Time Temp Pulse Resp B/P (MAP) Pulse Ox O2 Delivery O2 Flow Rate FiO2 01/15/22 08:21 93 Room Air 01/15/22 08:00 36.7 01/15/22 08:00 73 19 128/61 (83) Capillary Refill : Less Than 3 Seconds I&O Intake and Output 01/15/22 00:00 Intake Total 1650 ml Output Total 1600 ml Balance 50 ml Intake Oral 550 ml IV Total 1100 ml Output Urine Total 1200 ml Gastric Drainage Total 400 ml General: Alert, Oriented X3 Lungs: Clear to Auscultation, Normal Air Movement Heart: Regular Rate, No Murmurs Abdomen: Normal Bowel Sounds, No Tenderness Psych/Mental Status: Mental Status NL, Mood NL Results Lab Laboratory Tests 01/14/22 11:04: Glucometer 156H 01/14/22 13:59: White Blood Count 14.6H, Red Blood Count 2.70L, Hemoglobin 8.3L, Hematocrit 25L, Mean Corpuscular Volume 93, Mean Corpuscular Hemoglobin 31, Mean Corpuscular Hemoglobin Concent 33, Red Cell Distribution Width 16.2H, Platelet Count 290, Mean Platelet Volume 9.7 01/14/22 15:01: Lab Scanned Report Transfusion Reaction Form 01/14/22 16:03: Glucometer 134H 01/14/22 20:44: Glucometer 146H 01/15/22 04:24: White Blood Count 14.5H, Red Blood Count 2.44L, Hemoglobin 7.5L, Hematocrit 23L, Mean Corpuscular Volume 95, Mean Corpuscular Hemoglobin 31, Mean Corpuscular Hemoglobin Concent 33, Red Cell Distribution Width 16.0H, Platelet Count 243, Mean Platelet Volume 9.8, Immature Granulocyte % (Auto) 1, Neutrophils (%) (Auto) 83H, Lymphocytes (%) (Auto) 8L, Monocytes (%) (Auto) 8, Eosinophils (%) (Auto) 1, Basophils (%) (Auto) 1, Neutrophils # (Auto) 12.0H, Lymphocytes # (Auto) 1.2, Monocytes # (Auto) 1.1H, Eosinophils # (Auto) 0.1, Basophils # (Auto) 0.1, Immature Granulocyte # (Auto) 0.1, Sodium Level 141, Potassium Level 4.3, Chloride Level 110H, Carbon Dioxide Level 21, Anion Gap 10, Blood Urea Nitrogen 41H, Creatinine 1.48H, Estimat Glomerular Filtration Rate 39, BUN/Creatinine Ratio 28, Glucose Level 143H, Calcium Level 8.3L, Corrected Calcium 8.9, Total Bilirubin 0.8, Aspartate Amino Transf (AST/SGOT) 8, Alanine Aminotransferase (ALT/SGPT) < 6, Alkaline Phosphatase 71, Total Protein 5.7L, Albumin 3.3 Microbiology 01/13/22 MRSA Screen - Final, Complete MRSA not isolated Assessment/Plan Assessment/Plan Assess & Plan/Chief Complaint Assessment: Acute GI bleed Acute on chronic anemia Acute blood loss anemia status post 2 units of transfusion Orthostatic hypotension Recent stent in RCA (Coronary artery disease primarily consisting of 80% proximal stenosis of a codominant right coronary artery. This was successfully stented with Skypoint 2.75 x 12 mm stent) by cardiology 01/01/22 maintained on Plavix Chronic kidney disease Solo kidney Hypertension Diabetes Obstructive sleep apnea on CPAP Pulmonary hypertension Plan: Supportive care Transfuse as necessary Dr. BUNDY consult for scopes 01/14/2022: Transfuse Cardiology consult 01/15/2022 Supportive Care Transfuse EGD and Colonoscopy will be done today Clinical Quality Measures DVT/VTE Risk/Contraindication: Contraindications-Pharm: Other *list below* Other: LILLIAN Zaragoza DO 01/16/22 0525: Subjective Subjective/Events-last exam Pt is doing well Hemoglobin is 7.5 Will need one more unit of blood Endoscopy will be done today Appears to be pale but stable Review of Systems General: Fatigue, Malaise Objective Exam General: Alert, Oriented X3, Cooperative, No Acute Distress, Other (Pale and fatigued) Lungs: Clear to Auscultation, Normal Air Movement Heart: Regular Rate, Normal S1, Normal S2, No Murmurs Psych/Mental Status: Mental Status NL, Mood NL Assessment/Plan Assessment/Plan Assess & Plan/Chief Complaint EGD colonoscopy Monitor hemoglobin Supervisory-Addendum Brief Verification & Attestation Participated in pt care: history, MDM, physical Personally performed: exam, history, MDM, supervision of care Care discussed with: Medical Student Procedures: n/a Results interpretation: Verified all documentation Verification and Attestation of Medical Student E/M Service A medical student performed and documented this service in my presence. I reviewed and verified all information documented by the medical student and made modifications to such information, when appropriate. I personally performed the physical exam and medical decision making. Lillian Stevenson Jan 16, 2022,05:24 LACY MCKEON Jan 15, 2022 10:32 LILLIAN STEVENSON DO Jan 16, 2022 05:25
--- NOTE | 2022-01-15 12:22 | Progress Note - Cardiology ---
Cardiology SOAP Progress Note Subjective: Gen weakness and malaise Intermittent abd discomfort Poor appetite No cp or palp or syncope No shortness of breath at rest Objective: I&O/Vital Signs 01/15/22 01/15/22 01/15/22 01/15/22 00:31 04:00 04:00 07:00 Temp 37.2 Pulse 86 76 76 Resp 18 B/P (MAP) 124/59 (80) O2 Delivery Room Air 01/15/22 01/15/22 01/15/22 08:00 08:00 08:21 Temp 36.7 Pulse 73 Resp 19 B/P (MAP) 128/61 (83) Pulse Ox 95 93 O2 Delivery Room Air Room Air 01/15/22 00:00 Intake Total 550 ml Output Total 700 ml Balance -150 ml Weight (Pounds): 265 Weight (Ounces): 0.0 Weight (Calculated Kilograms): 120.583509 Constitutional: AAO x 3, well-developed, well-nourished Respiratory: No accessory muscle use, No respiratory distress; chest expansion is symmetric, chest is bilaterally symmetric, lungs clear to auscultation Cardiovascular: regular rate-rhythm; No JVD; S1 and S2 Gastrointestional: No guarding; audible bowel sounds, other (NG tube in place) Extremities: no lower extremity edema bilateral Neurologic/Psychiatric: other (moves all extremities) Skin: No rash on exposed areas, No ulcerations on exposed areas Results/Procedures: Labs Laboratory Tests 01/14/22 13:59: White Blood Count 14.6H, Red Blood Count 2.70L, Hemoglobin 8.3L, Hematocrit 25L, Mean Corpuscular Volume 93, Mean Corpuscular Hemoglobin 31, Mean Corpuscular Hemoglobin Concent 33, Red Cell Distribution Width 16.2H, Platelet Count 290, Mean Platelet Volume 9.7 01/14/22 15:01: Lab Scanned Report Transfusion Reaction Form 01/14/22 16:03: Glucometer 134H 01/14/22 20:44: Glucometer 146H 01/15/22 04:24: White Blood Count 14.5H, Red Blood Count 2.44L, Hemoglobin 7.5L, Hematocrit 23L, Mean Corpuscular Volume 95, Mean Corpuscular Hemoglobin 31, Mean Corpuscular Hemoglobin Concent 33, Red Cell Distribution Width 16.0H, Platelet Count 243, Mean Platelet Volume 9.8, Immature Granulocyte % (Auto) 1, Neutrophils (%) (Auto) 83H, Lymphocytes (%) (Auto) 8L, Monocytes (%) (Auto) 8, Eosinophils (%) (Auto) 1, Basophils (%) (Auto) 1, Neutrophils # (Auto) 12.0H, Lymphocytes # (Auto) 1.2, Monocytes # (Auto) 1.1H, Eosinophils # (Auto) 0.1, Basophils # (Auto) 0.1, Immature Granulocyte # (Auto) 0.1, Sodium Level 141, Potassium Level 4.3, Chloride Level 110H, Carbon Dioxide Level 21, Anion Gap 10, Blood Urea Nitrogen 41H, Creatinine 1.48H, Estimat Glomerular Filtration Rate 39, BUN/Creatinine Ratio 28, Glucose Level 143H, Calcium Level 8.3L, Corrected Calcium 8.9, Total Bilirubin 0.8, Aspartate Amino Transf (AST/SGOT) 8, Alanine Aminotransferase (ALT/SGPT) < 6, Alkaline Phosphatase 71, Total Protein 5.7L, Albumin 3.3 01/15/22 10:40: Glucometer 138H Microbiology 01/13/22 MRSA Screen - Final, Complete MRSA not isolated Laboratory Tests 01/13/22 18:07 01/14/22 01:03 01/14/22 04:29 01/14/22 13:59 01/15/22 04:24 A/P: Assessment: Suspected GIB - mangement per Dr. Bundy - awaiting endoscopy - worsening anemia despite transfusions CAD - Echocardiogram of 10-10-[address] Andrade showed LEF 60-65%. RA and LA mildly dilated. PASP 40-45 mmHg - MPI of 12-04-21: This study is indicative of a moderate amount of anterior ischemia. Normal regional wall motion. Normal global left ventricular systolic function with a calculated ejection fraction of 64%. - Cardiac cath of 01-02-22 following abn MPI (as noted above): Coronary artery disease primarily consisting of 80% proximal stenosis of a codominant right cor onary artery. This was successfully stented with Skypoint 2.75 x 12 mm stent. No other significant lesions are seen. 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 Bundy She has had recent coronary stent placed 01-02-2022 for which she has been on DAPT. This is currently being withheld d/t probable GIB with worsening anemia despite transfusions. This places her at risk for in stent thrombosis. We advise endoscopy be done to [facility] to determine and treat source of bleeding so that at least Plavix may be resumed. Dr Bundy has allowed use of DVT prophylaxis dose of enoxaparin Monitor labs Anemia being managed by Medical and Surgical services I interviewed and examined her, reviewed her records in detail, and have also personally discussed the case with Dr Bundy on the phone SAQIB GRAY MD FACP FAC CCDS Jan 15, 2022 12:22
[2022-01-15] MEDS ORDERED: LACTATED RINGERS 1,000 ML IV ONE (13:42)
[2022-01-15] MEDS ORDERED: LACTATED RINGERS 1,000 ML IV STA (13:43)
[2022-01-15] MEDS ORDERED: HURRICAINE EXT TUBE (BENZOCAINE) XX PRN (13:45)
[2022-01-15] MEDS ORDERED: LIDOCAINE JELLY 2% 6 ML SYRINGE MM PRN (13:45)
[2022-01-15] MEDS ORDERED: HURRICAINE EXT TUBE (BENZOCAINE) ONE (13:55)
[2022-01-15] MEDS ORDERED: LIDOCAINE JELLY 2% 6 ML SYRINGE ONE (13:55)
[2022-01-15] MEDS ORDERED: PROPOFOL INJECTION 50 ML IV ONE (14:06)
--- NOTE | 2022-01-15 15:20 | Progress Note-Post Operative ---
Post-Operative Progess Note Surgeon (s)/Voice Pathologist (s) Surgeon DEMOND BARBOSA MD Voice Pathologist: none Pre-Operative Diagnosis anemia, GI bleed Post-Operative Diagnosis reflux esphagitis(grade 3), large type 3 HH(5cm), blaze ulcer with overlying clot, moderate gastritis. chronic stage 2 ext and int hemorrhoids, moderate sigmoid diverticulosis. Procedure & Operative Findings Date of Procedure 01/15/22 Procedure Performed/Findings EGD with bx. colonoscopy Anesthesia Type mac Estimated Blood Loss Estimated blood loss (mL): minimal Specimens/Packing Specimens Removed ge jxn, antrum, blaze ulcer DEMOND BARBOSA MD Jan 15, 2022 15:20
[2022-01-15] MEDS: ONDANSETRON 4 MG (ZOFRAN) ORAL DISSOLVE TAB PO PRN (15:57)
--- NOTE | 2022-01-15 19:22 | OPERATIVE REPORT ---
DATE OF SERVICE: 01/15/2022 ATTENDING PHYSICIAN: Dr. Staley. PREOPERATIVE DIAGNOSES: Anemia, gastrointestinal bleed, dark tarry stools. POSTOPERATIVE DIAGNOSES: Reflux esophagitis [place] grade C, large type 3 hiatal hernia with David ulceration with an overlying fibrin clot, no active bleed. Moderate gastritis, chronic stage II external and internal hemorrhoids, moderate sigmoid diverticulosis. PROCEDURE: EGD with biopsy, colonoscopy. SURGEON: Demond Bundy MD ANESTHESIA: Monitored anesthesia care. ESTIMATED BLOOD LOSS: Minimal. FINDINGS: Same as postoperative diagnoses. DISPOSITION: The patient tolerated the procedure well. INDICATIONS: The patient is a 66-year-old female who presented with a vasovagal episode and hit the right side of her face and shoulder. She was brought to the Emergency Department where she was found to be significantly anemic and was transfused packed red blood cells. Upon further questioning, she does report a history of gastroesophageal reflux disease as well as peptic ulcer disease. She also has had a colonoscopy in the past; however, this was some years ago. DESCRIPTION OF PROCEDURE: The patient was brought to the endoscopy suite, laid in left lateral decubitus position. After adequate IV pain and sedative medications and monitored anesthesia care, the mouthpiece was applied. The endoscope was placed in the mouth, visualizing the pharynx and hypopharyngeal region. Vocal cords, epiglottis and vallecula identified and appeared to be normal. Endoscope was gently intubated. The esophageal opening and esophagus insufflated. The endoscope was then advanced to the first, second and third portion of esophagus. The GE junction was intrathoracic consistent with a hiatal hernia and there was [place] grade C, reflux esophagitis. Biopsy was taken with forceps with visualization of good hemostasis. The endoscope was then advanced in the stomach and the endoscope retroflexed, visualizing a large type 3 hiatal hernia with David ulceration with an overlying fibrin clot, no active bleed. There was a moderate severity gastritis, no ulcers of the distal portion of the stomach, no active bleeding. A biopsy was taken of the antrum to rule out H. pylori with visualization of good hemostasis. The endoscope was advanced through the pylorus and the first and second portion of duodenum, which appeared normal with no ulcerations or any active bleeding sources. The endoscope was then slowly withdrawn while taking a second look and suctioning residual air with no additional findings. A digital rectal examination was performed, which revealed chronic stage II external and internal hemorrhoids, not actively edematous or inflamed and no bleeding. Normal sphincter tone was felt and there were no palpable masses. The endoscope was then intubated and anus and rectum gently insufflated. There was a poor colonic prep; however, we were able to maneuver through the stool and this was also irrigated out as well as possible. The endoscope was then advanced through the valves of [place] rectum with no polyps or any neoplasms identified. Through the sigmoid colon, a moderate sigmoid diverticulosis identified. Only dark blood was identified. No red blood, indicating any lower gastrointestinal bleed. The endoscope was then advanced to the remainder of the descending, transverse and ascending colon to the cecum, which were normal. No polyps or any neoplasms identified as well as no active bleeding sources. The endoscope was slowly withdrawn while taking a second look and suctioning of residual air with no additional findings. The patient tolerated the procedure well. The patient will need to be on a proton pump inhibitor on a regular basis also with the necessary lifestyle and dietary accommodation including avoidance of caffeinated beverages, spicy, greasy and acidic foods and small and more frequent meals, avoidance of eating at night. She may also restart her aspirin and Plavix immediately. Job ID: [id number] DocumentID: [id number] Dictated Date: 01/15/2022 15:11:11 Guide Delegate Date: 01/15/2022 19:21:29 Dictated By: DEMOND BUNDY MD MTDD
[2022-01-15] MEDS: CHLORASEPTIC LOZENGE MM PRN (22:20)
[2022-01-16] VITALS (14 sets, daily range): BP systolic 103–145; BP diastolic 47–80
[2022-01-16] MEDS: CHLORASEPTIC LOZENGE MM PRN ×2 (03:44→08:18)
[2022-01-16] MEDS: ENOXAPARIN 40 MG/0.4 ML (LOVENOX) SYR SC SCH (03:44)
[2022-01-16 05:30] LABS: BASOPHILS # (AUTO) 0.1 10^3/uL (0.0-0.1); BASOPHILS % (AUTO) 1 % (0-10); EOSINOPHILS # (AUTO) 0.2 10^3/uL (0.0-0.3); EOSINOPHILS % (AUTO) 1 % (0-10); HEMATOCRIT 22 % (35-52); HEMOGLOBIN 7.1 g/dL (11.5-16.0); LYMPHOCYTES # (AUTO) 1.4 10^3/uL (1.0-4.0); LYMPHOCYTES % (AUTO) 12 % (12-44); MEAN CORPUSCULAR HEMOGLOBIN 31 pg (25-34); MEAN CORPUSCULAR HGB CONC 32 g/dL (32-36); MEAN CORPUSCULAR VOLUME 98 fL (80-99); MEAN PLATELET VOLUME 10.1 fL (9.0-12.2); MONOCYTES # (AUTO) 0.8 10^3/uL (0.0-1.0); MONOCYTES % (AUTO) 7 % (0-12); NEUTROPHILS # (AUTO) 9.8 10^3/uL (1.8-7.8); NEUTROPHILS % (AUTO) 79 % (42-75); PLATELET COUNT 233 10^3/uL (130-400); WHITE BLOOD COUNT 12.4 10^3/uL (4.3-11.0)
[2022-01-16 05:47] LABS: ALBUMIN 3.2 GM/DL (3.2-4.5); CHLORIDE 111 MMOL/L (98-107); POTASSIUM 4.3 MMOL/L (3.6-5.0); SODIUM 144 MMOL/L (135-145)
[2022-01-16 05:49] LABS: CALCIUM 8.3 MG/DL (8.5-10.1)
[2022-01-16 05:50] LABS: GLUCOSE 137 MG/DL (70-105); TOTAL PROTEIN 5.7 GM/DL (6.4-8.2)
[2022-01-16 05:51] LABS: CARBON DIOXIDE 22 MMOL/L (21-32)
[2022-01-16 05:52] LABS: BILIRUBIN,TOTAL 0.6 MG/DL (0.1-1.0)
[2022-01-16 05:53] LABS: ALKALINE PHOSPHATASE 70 U/L (40-136)
[2022-01-16 05:54] LABS: CREATININE SERUM 1.39 MG/DL (0.60-1.30); GFR ESTIMATED 42
[2022-01-16 05:55] LABS: BUN/CREATININE RATIO 19
[2022-01-16 05:56] LABS: ALANINE AMINOTRANSFERASE < 6 U/L (0-55)
[2022-01-16] MEDS: inSUlin ASPART (NovoLOG) 1 UNIT/0.01 ML (CHARGE PER UNIT) SC SCH ×4 (06:11→20:30)
[2022-01-16] MEDS ORDERED: NS IV 500 ML 500 ML IV SCH ×2 (06:15)
[2022-01-16] MEDS: SUCRALFATE 1 GM (CARAFATE) TAB PO SCH ×4 (07:51→20:14)
[2022-01-16] MEDS: PANTOPRAZOLE 40 MG (PROTONIX) VIAL IV SCH (08:19)
[2022-01-16] MEDS: DOCUSATE SODIUM 100 MG (COLACE) CAP PO SCH ×2 (08:19→20:14)
[2022-01-16] MEDS: SENNOSIDES 8.6 MG (SENOKOT) TAB PO SCH ×2 (08:19→20:14)
--- NOTE | 2022-01-16 08:53 | Progress Note - Cardiology ---
Cardiology SOAP Progress Note Subjective: Sitting up in bed States she feels somewhat better No c/o CP or SOB C/O gen weakness Objective: I&O/Vital Signs 01/16/22 01/17/22 01/17/22 23:14 03:33 07:55 Temp 36.6 36.5 36.6 Pulse 69 70 70 Resp 18 16 20 B/P (MAP) 114/57 (76) 137/63 (87) 117/62 (80) Pulse Ox 90 91 94 O2 Delivery NIV CPAP NIV CPAP Room Air 01/17/22 00:00 Intake Total 870 ml Output Total 300 ml Balance 570 ml Weight (Pounds): 265 Weight (Ounces): 0.0 Weight (Calculated Kilograms): 120.783950 Constitutional: AAO x 3, well-developed, well-nourished Respiratory: No accessory muscle use, No respiratory distress; chest expansion is symmetric, chest is bilaterally symmetric, lungs clear to auscultation Cardiovascular: regular rate-rhythm; No JVD; S1 and S2 Gastrointestional: No guarding; audible bowel sounds, other (NG tube in place) Extremities: no lower extremity edema bilateral Neurologic/Psychiatric: other (moves all extremities) Skin: pallor; No rash on exposed areas, No ulcerations on exposed areas; other (right eye with ecchymosis; sutures above right eye - edges approx, no redness or drainage noted) Results/Procedures: Labs Laboratory Tests 01/16/22 11:20: Glucometer 140H 01/16/22 15:21: Glucometer 173H 01/16/22 20:26: Glucometer 162H 01/17/22 05:46: Glucometer 121H 01/17/22 05:56: White Blood Count 9.1, Red Blood Count 2.67L, Hemoglobin 8.2L, Hematocrit 26L, Mean Corpuscular Volume 96, Mean Corpuscular Hemoglobin 31, Mean Corpuscular Hemoglobin Concent 32, Red Cell Distribution Width 15.7H, Platelet Count 244, Mean Platelet Volume 10.0, Immature Granulocyte % (Auto) 1, Neutrophils (%) (Auto) 70, Lymphocytes (%) (Auto) 18, Monocytes (%) (Auto) 7, Eosinophils (%) (Auto) 4, Basophils (%) (Auto) 1, Neutrophils # (Auto) 6.3, Lymphocytes # (Auto) 1.6, Monocytes # (Auto) 0.6, Eosinophils # (Auto) 0.4H, Basophils # (Auto) 0.1, Immature Granulocyte # (Auto) 0.1, Sodium Level 140, Potassium Level 4.2, Chloride Level 107, Carbon Dioxide Level 22, Anion Gap 11, Blood Urea Nitrogen 22H, Creatinine 1.41H, Estimat Glomerular Filtration Rate 41, BUN/Creatinine Ratio 16, Glucose Level 132H, Calcium Level 8.5, Corrected Calcium 9.1, Total Bilirubin 0.7, Aspartate Amino Transf (AST/SGOT) 11, Alanine Aminotransferase (ALT/SGPT) < 6, Alkaline Phosphatase 75, Total Protein 6.0L, Albumin 3.3 Microbiology 01/13/22 MRSA Screen - Final, Complete MRSA not isolated A/P: Assessment: Probable GIB - mangement per Dr. Bundy - awaiting endoscopy - worsening anemia despite transfusions - Per endoscopy by Dr. Bundy on 01-15-22: Reflux esophagitis, [place] grade C, large type 3 hiatal hernia with David ulceration with an overlying fibrin clot, no active bleed. Moderate gastritis,chronic stage II external and internal hemorrhoids, moderate sigmoid diverticulosis. CAD - Echocardiogram of 10-10-[address] Andrade showed LEF 60-65%. RA and LA mildly dilated. PASP 40-45 mmHg - MPI of 12-04-21: This study is indicative of a moderate amount of anterior ischemia. Normal regional wall motion. Normal global left ventricular systolic function with a calculated ejection fraction of 64%. - Cardiac cath of 01-02-22 following abn MPI (as noted above): Coronary artery disease primarily consisting of 80% proximal stenosis of a codominant right coronary artery. This was successfully stented with Skypoint 2.75 x 12 mm stent. No other significant lesions are seen. 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 Bundy on 01-15-22: Reflux esophagitis, [place] grade C, large type 3 hiatal hernia with David ulceration with an overlying fibrin clot, no active bleed. Moderate gastritis,chronic stage II external and internal hemorrhoids, moderate sigmoid diverticulosis - management per Dr. Bundy Per his note from 01-15-22 we may resume ASA and Plavix d/t recent stent placement on 01-02-22 - We will restart the Plavix and stop Lovenox. We will hold ASA for now to allow healing - Since we are stopping the Lovenox - we are ordering SCD's for DVT prophylaxis - Advise PT for strengthening - Management of anemia per medical/surgical services - Monitor lab closely VIVEK COLON Jan 16, 2022 08:53
[2022-01-16] MEDS: CLOPIDOGREL 75 MG (PLAVIX) TABLET PO SCH (09:17)
--- NOTE | 2022-01-16 10:41 | Progress Note - Cardiology ---
Cardiology SOAP Progress Note Subjective: No cp or palp or syncope or shortness of breath Gen malaise and weakness No n/v since yesterday Intermittent abd discomfort better Objective: I&O/Vital Signs 01/16/22 01/16/22 01/16/22 01/16/22 00:00 00:00 01:00 04:00 Temp 36.8 Pulse 74 70 79 Resp 17 13 B/P (MAP) 131/67 (88) 142/60 (87) Pulse Ox 96 94 O2 Delivery Room Air Room Air 01/16/22 01/16/22 01/16/22 01/16/22 07:00 07:00 07:41 08:00 Temp 37.0 37.2 Pulse 71 69 71 72 Resp 14 16 16 B/P (MAP) 127/50 (75) 127/50 125/52 Pulse Ox 97 96 O2 Delivery Room Air Nasal Cannula Nasal Cannula O2 Flow Rate 2.00 2.00 01/16/22 01/16/22 01/16/22 08:00 08:35 10:07 Temp 36.0 36.6 Pulse 69 Resp 16 B/P (MAP) 123/61 Pulse Ox 94 97 O2 Delivery Room Air Room Air 01/16/22 00:00 Intake Total 250 ml Output Total 525 ml Balance -275 ml Weight (Pounds): 265 Weight (Ounces): 0.0 Weight (Calculated Kilograms): 120.873626 Constitutional: AAO x 3, well-developed, well-nourished Respiratory: No accessory muscle use, No respiratory distress; chest expansion is symmetric, chest is bilaterally symmetric, lungs clear to auscultation Cardiovascular: regular rate-rhythm; No JVD; S1 and S2 Gastrointestional: No guarding; audible bowel sounds, other (NG tube in place) Extremities: no lower extremity edema bilateral Neurologic/Psychiatric: other (moves all extremities) Skin: pallor; No rash on exposed areas, No ulcerations on exposed areas; other (right eye with ecchymosis; sutures above right eye - edges approx, no redness or drainage noted) Results/Procedures: Labs Laboratory Tests 01/15/22 10:40: Glucometer 138H 01/15/22 15:33: Glucometer 149H 01/15/22 21:12: Glucometer 137H 01/16/22 04:48: White Blood Count 12.4H, Red Blood Count 2.27L, Hemoglobin 7.1L, Hematocrit 22L, Mean Corpuscular Volume 98, Mean Corpuscular Hemoglobin 31, Mean Corpuscular Hemoglobin Concent 32, Red Cell Distribution Width 16.0H, Platelet Count 233, Mean Platelet Volume 10.1, Immature Granulocyte % (Auto) 1, Neutrophils (%) (Auto) 79H, Lymphocytes (%) (Auto) 12, Monocytes (%) (Auto) 7, Eosinophils (%) (Auto) 1, Basophils (%) (Auto) 1, Neutrophils # (Auto) 9.8H, Lymphocytes # (Auto) 1.4, Monocytes # (Auto) 0.8, Eosinophils # (Auto) 0.2, Basophils # (Auto) 0.1, Immature Granulocyte # (Auto) 0.1, Sodium Level 144, Potassium Level 4.3, Chloride Level 111H, Carbon Dioxide Level 22, Anion Gap 11, Blood Urea Nitrogen 27H, Creatinine 1.39H, Estimat Glomerular Filtration Rate 42, BUN/Creatinine Ratio 19, Glucose Level 137H, Calcium Level 8.3L, Corrected Calcium 8.9, Total Bilirubin 0.6, Aspartate Amino Transf (AST/SGOT) 9, Alanine Aminotransferase (ALT/SGPT) < 6, Alkaline Phosphatase 70, Total Protein 5.7L, Albumin 3.2 Microbiology 01/13/22 MRSA Screen - Final, Complete MRSA not isolated Laboratory Tests 01/14/22 13:59 01/15/22 04:24 01/16/22 04:48 A/P: Assessment: GIB - mangement per Dr. Bundy - awaiting endoscopy - worsening anemia despite transfusions - Per endoscopy by Dr. Bundy on 01-15-22: Reflux esophagitis, [place] grade C, large type 3 hiatal hernia with David ulceration with an overlying fibrin clot, no active bleed. Moderate gastritis,chronic stage II external and internal hemorrhoids, moderate sigmoid diverticulosis. CAD - Echocardiogram of 10-10-[address] Andrade showed LEF 60-65%. RA and LA mildly dilated. PASP 40-45 mmHg - MPI of 12-04-21: This study is indicative of a moderate amount of anterior ischemia. Normal regional wall motion. Normal global left ventricular systolic function with a calculated ejection fraction of 64%. - Cardiac cath of 01-02-22 following abn MPI (as noted above): Coronary artery disease primarily consisting of 80% proximal stenosis of a codominant right coronary artery. This was successfully stented with Skypoint 2.75 x 12 mm stent. No other significant lesions are seen. 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 Bundy on 01-15-22: Reflux esophagitis, [place] grade C, large type 3 hiatal hernia with David ulceration with an overlying fibrin clot, no active bleed. Moderate gastritis,chronic stage II external and internal hemorrhoids, moderate sigmoid diverticulosis - management per Dr. Bundy. H/H has continued to worsen and pt is receiving blood transfusion today Dr Bundy has allowed resumption of DAPT - We will restart the Plavix and stop Lovenox. We will hold ASA for now to allow healing since she is still requiring transfusions - Since we are stopping the Lovenox - we are ordering SCD's for DVT prophylaxis - Advise PT for strengthening - Management of anemia per Medical/Surgical services - Monitor lab closely SAQIB GRAY MD FACP FAC CCDS Jan 16, 2022 10:41
[2022-01-16] MEDS: PANTOPRAZOLE 40 MG (PROTONIX) TAB PO SCH ×2 (10:42→20:14)
--- NOTE | 2022-01-16 11:25 | Physical Therapy Evaluation ---
PT Evaluation-General Medical Diagnosis Admission Date Jan 13, 2022 at 12:09 Medical Diagnosis: Hematuresis, melena, GI bleed Onset Date: Jan 15, 2022 Therapy Diagnosis Therapy Diagnosis: Gait deficit, strength deficit Height/Weight Height (Feet): 5 Height (Inches): 4.00 Weight (Pounds): 265 Weight (Ounces): 0.0 Precautions Precautions/Isolations: Fall Prevention, Standard Precautions Referral Physician: Dr. Staley Reason for Referral: Evaluation/Treatment Medical History Reviewed History: Yes Social History Home: Single Level Current Living Status: Spouse Entry Into Home: Stairs With Railing PT Steps Into Home: 4 Prior Prior Level of Function SCALE: Activities may be completed with or without assistive devices. 2-Dcxclxgdif-wdzastc completes the activity by him/herself with no assistance from a helper. 5-Set-up or Clean-up Assistance-helper sets up or cleans up; patient completes activity. [place] assists only prior to or following the activity. 4-Supervision or Touching Assistance-helper provides verbal cues and/or touchi ng/steadying and/or contact guard assistance as patient completes activity. Assistance may be provided throughout the activity or intermittently. 3-Partial/Moderate Assistance-helper does LESS THAN HALF the effort. [place] lifts, holds or supports trunk or limbs, but provides less than half the effort. 2-Substantial/Maximal Assistance-helper does MORE THAN HALF the effort. [place] lifts or holds trunk or limbs and provides more than half the effort. 9-Zdpkocijd-yoimxw does ALL the effort. Patient does none of the effort to complete the activity. Or, the assistance of 2 or more helpers is required for the patient to complete the activity. If activity was not attempted, code reason: 7-Patient Refused. 9-Not Applicable-not attempted and the patient did not perform the activity before the current illness, exacerbation or injury. 10-Not Attempted due to Environmental Limitations-(lack of equipment, weather restraints, etc.). 88-Not Attempted due to Medical Conditions or Safety Concerns. Bed Mobility: 6 Transfers (B,C,W/C): 6 Gait: 6 Stairs: 6 Indoor Mobility (Ambulation): Independent Stairs: Independent Prior Devices Use: None PT Evaluation-Current Subjective Patient standing at the sink washing her hands upon PT arrival, agreeable to treatment. Rates pain at 0/10 currently Objective Patient Orientation: Person, Place, Time, Situation Sensory Vision: Functional Hearing: Functional Sensation Right Lower Extremit: Intact Sensation Left Lower Extremity: Intact Transfers Roll Left to Right (QC): 5 Sit to Lying (QC): 5 Lying to Sitting/Side of Bed(Q: 5 Sit to Stand (QC): 4 Chair/Llq-cj-Owadh Xfer(QC): 4 Toilet Transfer (QC): 4 Gait Does the Patient Walk?: Yes Mode of Locomotion: Walk Anticipated Mode of Locomotion: Walk Walk 10 feet (QC): 5 Distance: 20 feet Comments/Gait Description Patient ambulates from the sink to the chair while PT in room. Patient ambulates with fair overall gait pattern, however unsteady at times. Wheelchair Training Does the Pt Use a Wheelchair?: No Balance Sitting Static: Normal Sitting Dynamic: Normal Standing Static: Good Standing Dynamic: Good Assessment/Needs Patient Independent with bed mobility and Mod I with transfers. Standing at the sink upon PT arrival and reports no one helped her. Confirmed with nurse and FOUNDER CHAIRMAN AND CHIEF CREATIVE OFFICER and neither of them assisted her. Patient was advised to contact nursing for A for transfers. Patient ambulates 20 feet back to the chair sans AD, with SBA. Minimally unsteady however demonstrates fair overall gait. Patient in chair post treatment with all needs met, nursing notified and call light in hand. Rehab Potential: Good PT Retirement Goals Retirement Goals PT Cigar Head Piercer Goals Time Frame: Jan 25, 2022 Roll Left & Right (QC): 6 Sit to Lying (QC): 6 Lying-Sitting on Side/Bed(QC): 6 Sit to Stand (QC): 6 Chair/Bcw-tb-Vzeyw Xfer(QC): 6 Toilet Transfer (QC): 6 Does the Patient Walk: Yes Walk 10 feet (QC): 6 Walk 50ft with 2 Turns (QC): 6 Walk 150 ft (QC): 6 1 Step (curb) (QC): 6 4 Steps (QC): 6 PT Plan Problem List Problem List: Activity Tolerance, Functional Strength, Safety, Balance, Gait, Transfer, Bed Mobility, ROM Treatment/Plan Treatment Plan: Continue Plan of Care Treatment Plan: Bed Mobility, Education, Functional Activity Isaac, Functional Strength, Group Therapy, Gait, Safety, Therapeutic Exercise, Transfers Treatment Duration: Feb 08, 2022 Frequency: 6 times per week Estimated Hrs Per Day: .25 hour per day Patient and/or Family Agrees t: Yes Safety Risks/Education Patient Education: Gait Training Teaching Recipient: Patient Teaching Methods: Demonstration, Discussion Response to Teaching: Verbalize Understanding, Return Demonstration, Unable to Comprehend Time/GCodes Time In: 1106 Time Out: 1120 Total Billed Treatment Time: 14 Total Billed Treatment Visit, JAYLON SHAFER PT Jan 16, 2022 11:25
--- NOTE | 2022-01-16 11:40 | Progress Note ---
LACY MCKEON 01/16/22 1140: Subjective Date Seen by a Provider: Jan 16, 2022 Time Seen by a Provider: 08:34 Subjective/Events-last exam Chief complaint: GI bleed History of present illness: This is a 66-year-old white female clinic patient of Dr. Stevenson with recent stent placement in RCA and placement on Plavix who presented to the ER after a syncopal episode at home and a large amount of hematemesis and melena. It is presumed she has an upper GI bleed and Dr. Bundy'michell been consulted. Serial hematocrits will be ordered and will require transfusion for less than 8.0 hemoglobin. Currently she is doing a lot better but will require close monitoring along with cardiology consultation. Subjective/Events-last exam Patient is still feeling tired, but a litttle better than yesterday. EGD and Colonoscopy done yesterday, showed a large hiatal hernia and david's ulceration with overlying fibrin clot, no active bleed. Hgb down to 7.1 today, patient was receiving her 3rd unit of blood this morning. Review of Systems General: No Chills, No Night Sweats; Fatigue, Malaise HEENT: No Head Aches, No Visual Changes Pulmonary: No Dyspnea, No Cough Cardiovascular: No: Chest Pain, Palpitations Gastrointestinal: No: Nausea, Vomiting, Diarrhea Genitourinary: No Dysuria, No Frequency Neurological: No: Numbness, Change in speech Objective Exam Last Set of Vital Signs Vital Signs Date Time Temp Pulse Resp B/P (MAP) Pulse Ox O2 Delivery O2 Flow Rate FiO2 01/16/22 11:00 73 16 Room Air 01/16/22 10:07 36.6 123/61 97 01/16/22 08:00 2.00 Capillary Refill : Less Than 3 Seconds I&O Intake and Output 01/16/22 00:00 Intake Total 250 ml Output Total 2250 ml Balance -2000 ml Intake Oral 150 ml IV Total 100 ml Output Urine Total 1825 ml Gastric Drainage Total 425 ml General: Alert, Oriented X3 Lungs: Clear to Auscultation, Normal Air Movement Heart: Regular Rate, No Murmurs Abdomen: Normal Bowel Sounds Psych/Mental Status: Mental Status NL, Mood NL Results Lab Laboratory Tests 01/15/22 15:33: Glucometer 149H 01/15/22 21:12: Glucometer 137H 01/16/22 04:48: White Blood Count 12.4H, Red Blood Count 2.27L, Hemoglobin 7.1L, Hematocrit 22L, Mean Corpuscular Volume 98, Mean Corpuscular Hemoglobin 31, Mean Corpuscular Hemoglobin Concent 32, Red Cell Distribution Width 16.0H, Platelet Count 233, Mean Platelet Volume 10.1, Immature Granulocyte % (Auto) 1, Neutrophils (%) (Auto) 79H, Lymphocytes (%) (Auto) 12, Monocytes (%) (Auto) 7, Eosinophils (%) (Auto) 1, Basophils (%) (Auto) 1, Neutrophils # (Auto) 9.8H, Lymphocytes # (Auto) 1.4, Monocytes # (Auto) 0.8, Eosinophils # (Auto) 0.2, Basophils # (Auto) 0.1, Immature Granulocyte # (Auto) 0.1, Sodium Level 144, Potassium Level 4.3, Chloride Level 111H, Carbon Dioxide Level 22, Anion Gap 11, Blood Urea Nitrogen 27H, Creatinine 1.39H, Estimat Glomerular Filtration Rate 42, BUN/Creatinine Ratio 19, Glucose Level 137H, Calcium Level 8.3L, Corrected Calcium 8.9, Total Bilirubin 0.6, Aspartate Amino Transf (AST/SGOT) 9, Alanine Aminotransferase (ALT/SGPT) < 6, Alkaline Phosphatase 70, Total Protein 5.7L, Albumin 3.2 01/16/22 11:20: Glucometer 140H Microbiology 01/13/22 MRSA Screen - Final, Complete MRSA not isolated Assessment/Plan Assessment/Plan Assess & Plan/Chief Complaint Assessment: Acute GI bleed Acute on chronic anemia Acute blood loss anemia status post 2 units of transfusion Orthostatic hypotension Recent stent in RCA (Coronary artery disease primarily consisting of 80% proximal stenosis of a codominant right coronary artery. This was successfully stented with Skypoint 2.75 x 12 mm stent) by cardiology 01/01/22 maintained on Plavix Chronic kidney disease Solo kidney Hypertension Diabetes Obstructive sleep apnea on CPAP Pulmonary hypertension Plan: Supportive care Transfuse as necessary Dr. BUNDY consult for scopes 01/14/2022: Transfuse Cardiology consult 01/15/2022 Supportive Care Transfuse EGD and Colonoscopy will be done today 01/16/2022: Transfuse Supportive care Clinical Quality Measures DVT/VTE Risk/Contraindication: Contraindications-Pharm: Other *list below* Other: JERZY Zaragoza DO 01/17/22 0530: Subjective Subjective/Events-last exam Pt is doing a lot better Transferring to 4th floor Third unit of blood infusing Took a bath Up in a chair now IS and Acapella ordered No pain is reported Ulcer is noted on EGD large type 3 hiatal hernia with David ulceration with an overlying fibrin clot, no active bleed Review of Systems General: Fatigue, Malaise Objective Exam General: Alert, Oriented X3, Cooperative, No Acute Distress Lungs: Clear to Auscultation, Normal Air Movement Heart: Regular Rate, Normal S1, Normal S2, No Murmurs Psych/Mental Status: Mental Status NL, Mood NL Assessment/Plan Assessment/Plan Assess & Plan/Chief Complaint Transfuse third unit today Transfer to fourth floor Inpatient rehab Supervisory-Addendum Brief Verification & Attestation Participated in pt care: history, MDM, physical Personally performed: exam, history, MDM, supervision of care Care discussed with: Medical Student Procedures: n/a Results interpretation: Verified all documentation Verification and Attestation of Medical Student E/M Service A medical student performed and documented this service in my presence. I reviewed and verified all information documented by the medical student and made modifications to such information, when appropriate. I personally performed the physical exam and medical decision making. Jerzy Stevenson, Jan 17, 2022,05:28 LACY MCKEON Jan 16, 2022 11:40 JERZY STEVENSON DO Jan 17, 2022 05:30
--- NOTE | 2022-01-16 13:28 | Occupational Therapy Eval ---
OT Evaluation-General/PLF Medical Diagnosis Admission Date Jan 13, 2022 at 12:09 Medical Diagnosis: Hematuresis, melena, GI bleed Onset Date: Jan 15, 2022 Therapy Diagnosis Therapy Diagnosis: n/a Height/Weight Height (Feet): 5 Height (Inches): 4.00 Weight (Pounds): 265 Weight (Ounces): 0.0 Precautions Precautions/Isolations: Fall Prevention, Standard Precautions Referral Physician: Dr. Staley Referral Reason: Evaluation/Treatment Medical History Current History Pt arrived to ER post syncope episode and hematuresis. Pt hit head but unable to recall events prior. Found to have GI bleed. Per patient, she lives with spouse in a single story home. She was indep with adls and iadls and does not use any AD for mobility. 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 Reviewed History: Yes Social History Home: Single Level Current Living Status: Spouse Entry Into Home: Stairs With Railing Steps Into Home: 4 ADL-Prior Level of Function SCALE: Activities may be completed with or without assistive devices. 2-Ncprktmqep-fsdqvqa completes the activity by him/herself with no assistance from a helper. 5-Set-up or Clean-up Assistance-helper sets up or cleans up; patient completes activity. [place] assists only prior to or following the activity. 4-Supervision or Touching Assistance-helper provides verbal cues and/or touching/steadying and/or contact guard assistance as patient completes activity. Assistance may be provided throughout the activity or intermittently. 3-Partial/Moderate Assistance-helper does LESS THAN HALF the effort. [place] lifts, holds or supports trunk or limbs, but provides less than half the effort. 2-Substantial/Maximal Assistance-helper does MORE THAN HALF the effort. [place] lifts or holds trunk or limbs and provides more than half the effort. 8-Fqpufxefc-stmijv does ALL the effort. Patient does none of the effort to complete the activity. Or, the assistance of 2 or more helpers is required for the patient to complete the activity. If activity was not attempted, code reason: 7-Patient Refused. 9-Not Applicable-not attempted and the patient did not perform the activity before the current illness, exacerbation or injury. 10-Not Attempted due to Environmental Limitations-(lack of equipment, weather restraints, etc.). 88-Not Attempted due to Medical Conditions or Safety Concerns. Self Care: Independent Functional Cognition: Independent DME/Equipment: Grab Bars, Tub/Shower Drive Self: Yes OT Current Status Subjective Pt denies pain, agreeable to eval. Appearance Pt returned to supine in bed, all needs within reach, RN informed. Mental Status/Objective Patient Orientation: Person, Place, Situation Attachments: IV Current Glasses/Contacts: Yes Hearing Aids: No Dentures/Partials: No Hand Dominance: Right Upper Extremity ROM WNL Upper Extremity Strength WNL ADL-Treatment Eating (QC): 6 Lower Body Dressing (QC): 6 On/Off Footwear (QC): 6 Toileting Hygiene (QC): 6 Pt supine in bed at OT arrival. Indep with all bed mobility. While at EOB, she donned/doffed bilateral socks without assist. She stood and ambulated to/from bathroom with supervision for safety only. No unsteadiness or LOB observed. No AD used. She was able to complete toilet transfer independently, declines need to urinate. Pt denies any concerns with ability to complete self cares. No further OT services warranted at this time. Education OT Patient Education: Purpose of tx/functional activities Teaching Recipient: Patient Teaching Methods: Discussion Response to Teaching: Verbalize Understanding, Return Demonstration OT Conductor/Brakeman Goals Custodial Goals 1=Demonstrate adherence to instructed precautions during ADL tasks. 2=Patient will verbalize/demonstrate understanding of assistive devices/modifications for ADL. 3=Patient will improve strength/tolerance for activity to enable patient to perform ADL's. OT Education/Plan Problem List/Assessment Assessment: No Skilled OT Needs ID'd Discharge Recommendations Plan/Recommendations: Discontinue OT Treatment Plan/Plan of Care Treatment,Training & Education: Yes Patient would benefit from OT for education, treatment and training to promote independence in ADL's, mobility, safety and/or upper extremity function for ADL's. Plan of Care: ADL Retraining Treatment Duration: Jan 16, 2022 Frequency: 1 time per week Estimated Hrs Per Day: .25 hour per day Agreement: Yes Rehab Potential: Good Time/GCodes Start Time: 13:07 Stop Time: 13:17 Total Time Billed (hr/min): 10 Billed Treatment Time 1 visit Viki Dunbar OT Jan 16, 2022 13:28
--- NOTE | 2022-01-16 17:25 | Progress Note ---
Subjective Date Seen by a Provider: Jan 16, 2022 Time Seen by a Provider: 17:00 Subjective/Events-last exam doing much better today. tolerating dys3 advanced diet. hb stable. no pain issues. Objective Exam Vital Signs Date Time Temp Pulse Resp B/P (MAP) Pulse Ox O2 Delivery O2 Flow Rate FiO2 01/16/22 13:00 37.2 78 18 145/65 (91) 90 Room Air 01/16/22 12:06 74 16 103/80 (88) 93 Room Air 01/16/22 12:00 103/80 (88) Room Air 01/16/22 12:00 36.5 01/16/22 11:00 73 16 Room Air 01/16/22 10:07 36.6 69 16 123/61 97 Room Air 01/16/22 10:00 71 14 123/61 (81) 96 Room Air 01/16/22 09:00 75 12 112/47 (68) 96 Room Air 01/16/22 08:35 94 Room Air 01/16/22 08:00 71 11 125/52 (76) 96 Room Air 01/16/22 08:00 36.0 01/16/22 08:00 37.2 72 16 125/52 Nasal Cannula 2.00 01/16/22 07:41 37.0 71 16 127/50 96 Nasal Cannula 2.00 01/16/22 07:00 69 01/16/22 07:00 71 14 127/50 (75) 97 Room Air 01/16/22 04:00 79 13 142/60 (87) 94 Room Air 01/16/22 01:00 70 01/16/22 00:00 36.8 01/16/22 00:00 74 17 131/67 (88) 96 Room Air 01/15/22 21:00 93 Room Air 01/15/22 20:00 37.1 79 20 131/60 (83) 97 Room Air 01/15/22 19:00 78 I & O 01/16/22 06:59 Intake Total 400 ml Output Total 1300 ml Balance -900 ml Capillary Refill : Less Than 3 Seconds General Appearance: No Apparent Distress HEENT: PERRL/EOMI Neck: Full Range of Motion Respiratory: Chest Non Tender, Decreased Breath Sounds Cardiovascular: Regular Rate, Rhythm Gastrointestinal: normal bowel sounds, non tender, soft Extremity: Normal Capillary Refill Neurologic/Psychiatric: Alert, Oriented x3 Skin: Normal Color Lymphatic: No Adenopathy Results Lab Laboratory Tests 01/15/22 21:12: Glucometer 137H 01/16/22 04:48: White Blood Count 12.4H, Red Blood Count 2.27L, Hemoglobin 7.1L, Hematocrit 22L, Mean Corpuscular Volume 98, Mean Corpuscular Hemoglobin 31, Mean Corpuscular Hemoglobin Concent 32, Red Cell Distribution Width 16.0H, Platelet Count 233, Mean Platelet Volume 10.1, Immature Granulocyte % (Auto) 1, Neutrophils (%) (Auto) 79H, Lymphocytes (%) (Auto) 12, Monocytes (%) (Auto) 7, Eosinophils (%) (Auto) 1, Basophils (%) (Auto) 1, Neutrophils # (Auto) 9.8H, Lymphocytes # (Auto) 1.4, Monocytes # (Auto) 0.8, Eosinophils # (Auto) 0.2, Basophils # (Auto) 0.1, Immature Granulocyte # (Auto) 0.1, Sodium Level 144, Potassium Level 4.3, Chloride Level 111H, Carbon Dioxide Level 22, Anion Gap 11, Blood Urea Nitrogen 27H, Creatinine 1.39H, Estimat Glomerular Filtration Rate 42, BUN/Creatinine Ratio 19, Glucose Level 137H, Calcium Level 8.3L, Corrected Calcium 8.9, Total Bilirubin 0.6, Aspartate Amino Transf (AST/SGOT) 9, Alanine Aminotransferase (ALT/SGPT) < 6, Alkaline Phosphatase 70, Total Protein 5.7L, Albumin 3.2 01/16/22 11:20: Glucometer 140H 01/16/22 15:21: Glucometer 173H Microbiology 01/13/22 MRSA Screen - Final, Complete MRSA not isolated Assessment/Plan Assessment/Plan Assess & Plan/Chief Complaint Upper GI bleed secondary large type 3 hiatal hernia and blaze's ulceration with overlying fibrin clot and no active bleed. cont PPI. small more frequent meals. avoid caffeine/spicy/greasy/acidic food. ok for home when ok with admitting physician Clinical Quality Measures DVT/VTE Risk/Contraindication: Contraindications-Pharm: Other *list below* Other: DEMOND Fregoso MD Jan 16, 2022 17:25
[2022-01-17 03:33] VITALS: BP 137/63
[2022-01-17] MEDS: SUCRALFATE 1 GM (CARAFATE) TAB PO SCH ×4 (05:50→20:31)
[2022-01-17] MEDS: inSUlin ASPART (NovoLOG) 1 UNIT/0.01 ML (CHARGE PER UNIT) SC SCH ×4 (05:50→21:11)
[2022-01-17 06:06] LABS: BASOPHILS # (AUTO) 0.1 10^3/uL (0.0-0.1); BASOPHILS % (AUTO) 1 % (0-10); EOSINOPHILS # (AUTO) 0.4 10^3/uL (0.0-0.3); EOSINOPHILS % (AUTO) 4 % (0-10); HEMATOCRIT 26 % (35-52); HEMOGLOBIN 8.2 g/dL (11.5-16.0); LYMPHOCYTES # (AUTO) 1.6 10^3/uL (1.0-4.0); LYMPHOCYTES % (AUTO) 18 % (12-44); MEAN CORPUSCULAR HEMOGLOBIN 31 pg (25-34); MEAN CORPUSCULAR HGB CONC 32 g/dL (32-36); MEAN CORPUSCULAR VOLUME 96 fL (80-99); MONOCYTES # (AUTO) 0.6 10^3/uL (0.0-1.0); MONOCYTES % (AUTO) 7 % (0-12); NEUTROPHILS # (AUTO) 6.3 10^3/uL (1.8-7.8); NEUTROPHILS % (AUTO) 70 % (42-75); PLATELET COUNT 244 10^3/uL (130-400); WHITE BLOOD COUNT 9.1 10^3/uL (4.3-11.0)
--- NOTE | 2022-01-17 06:07 | Progress Note ---
Subjective Date Seen by a Provider: Jan 17, 2022 Time Seen by a Provider: 10:00 Subjective/Events-last exam Patient doing well Ambulating with therapy pretty well Hemoglobin stable Checked meds and labs No pain is reported PPI and Carafate maintained Creatinine stable at 1.4 Possible discharge tomorrow Review of Systems General: Fatigue, Malaise Objective Exam Last Set of Vital Signs Vital Signs Date Time Temp Pulse Resp B/P (MAP) Pulse Ox O2 Delivery O2 Flow Rate FiO2 01/17/22 03:33 36.5 70 16 137/63 (87) 91 NIV CPAP 01/16/22 08:00 2.00 Capillary Refill : Less Than 3 Seconds I&O Intake and Output 01/17/22 00:00 Intake Total 1020 ml Output Total 950 ml Balance 70 ml Intake Oral 1020 ml Output Urine Total 950 ml General: Alert, Oriented X3, Cooperative, No Acute Distress, Other (Fatigued) Lungs: Clear to Auscultation, Normal Air Movement Heart: Regular Rate, Normal S1, Normal S2, No Murmurs Psych/Mental Status: Mental Status NL, Mood NL Results Lab Laboratory Tests 01/16/22 11:20: Glucometer 140H 01/16/22 15:21: Glucometer 173H 01/16/22 20:26: Glucometer 162H 01/17/22 05:46: Glucometer 121H 01/17/22 05:56: Microbiology 01/13/22 MRSA Screen - Final, Complete MRSA not isolated Assessment/Plan Assessment/Plan Assess & Plan/Chief Complaint Assessment: Severe GI bleed due to ulcer confirmed on EGD Acute blood loss anemia status post 3 units of blood Chronic kidney disease with solo kidney Diabetes Hypertension VLADIMIR Recent stent to RCA placed on Plavix and aspirin Obesity Plan: Monitor hemoglobin PT and OT Possible discharge tomorrow Diagnosis/Problems Diagnosis/Problems (1) Syncope Status: Acute Qualifiers: Qualified Codes: R55 - Syncope and collapse (2) Hematemesis Status: Acute Qualifiers: Qualified Codes: K92.0 - Hematemesis (3) CAD (coronary artery disease) (4) Pulmonary arterial hypertension (5) CKD (chronic kidney disease) Clinical Quality Measures DVT/VTE Risk/Contraindication: Contraindications-Pharm: Other *list below* Other: JERZY Zaragoza DO Jan 17, 2022 06:07
[2022-01-17 06:17] LABS: ALBUMIN 3.3 GM/DL (3.2-4.5)
[2022-01-17 06:18] LABS: CHLORIDE 107 MMOL/L (98-107); POTASSIUM 4.2 MMOL/L (3.6-5.0); SODIUM 140 MMOL/L (135-145)
[2022-01-17 06:19] LABS: CALCIUM 8.5 MG/DL (8.5-10.1)
[2022-01-17 06:20] LABS: GLUCOSE 132 MG/DL (70-105)
[2022-01-17 06:21] LABS: CARBON DIOXIDE 22 MMOL/L (21-32)
[2022-01-17 06:22] LABS: BILIRUBIN,TOTAL 0.7 MG/DL (0.1-1.0)
[2022-01-17 06:23] LABS: ALKALINE PHOSPHATASE 75 U/L (40-136)
[2022-01-17 06:24] LABS: CREATININE SERUM 1.41 MG/DL (0.60-1.30); GFR ESTIMATED 41
[2022-01-17 06:25] LABS: BUN/CREATININE RATIO 16
[2022-01-17 06:27] LABS: ALANINE AMINOTRANSFERASE < 6 U/L (0-55)
[2022-01-17 07:55] VITALS: BP 117/62
[2022-01-17] MEDS: SENNOSIDES 8.6 MG (SENOKOT) TAB PO SCH ×2 (08:34→20:31)
[2022-01-17] MEDS: DOCUSATE SODIUM 100 MG (COLACE) CAP PO SCH ×2 (08:34→20:31)
[2022-01-17] MEDS: PANTOPRAZOLE 40 MG (PROTONIX) TAB PO SCH ×2 (08:34→20:31)
[2022-01-17] MEDS: CLOPIDOGREL 75 MG (PLAVIX) TABLET PO SCH (08:34)
--- NOTE | 2022-01-17 08:51 | Progress Note - Cardiology ---
Cardiology SOAP Progress Note Objective: I&O/Vital Signs 01/17/22 01/17/22 01/17/22 03:33 07:55 08:00 Temp 36.5 36.6 Pulse 70 70 Resp 16 20 B/P (MAP) 137/63 (87) 117/62 (80) Pulse Ox 91 94 O2 Delivery NIV CPAP Room Air Room Air 01/17/22 00:00 Intake Total 870 ml Output Total 300 ml Balance 570 ml Weight (Pounds): 265 Weight (Ounces): 0.0 Weight (Calculated Kilograms): 120.221996 Constitutional: AAO x 3, well-developed, well-nourished Respiratory: No accessory muscle use, No respiratory distress; chest expansion is symmetric, chest is bilaterally symmetric, lungs clear to auscultation Cardiovascular: regular rate-rhythm; No JVD; S1 and S2 Gastrointestional: No guarding; audible bowel sounds, other (NG tube in place) Extremities: no lower extremity edema bilateral Neurologic/Psychiatric: other (moves all extremities) Skin: pallor; No rash on exposed areas, No ulcerations on exposed areas; other (right eye with ecchymosis; sutures above right eye - edges approx, no redness or drainage noted) Results/Procedures: Labs Laboratory Tests 01/16/22 15:21: Glucometer 173H 01/16/22 20:26: Glucometer 162H 01/17/22 05:46: Glucometer 121H 01/17/22 05:56: White Blood Count 9.1, Red Blood Count 2.67L, Hemoglobin 8.2L, Hematocrit 26L, Mean Corpuscular Volume 96, Mean Corpuscular Hemoglobin 31, Mean Corpuscular Hemoglobin Concent 32, Red Cell Distribution Width 15.7H, Platelet Count 244, Mean Platelet Volume 10.0, Immature Granulocyte % (Auto) 1, Neutrophils (%) (Auto) 70, Lymphocytes (%) (Auto) 18, Monocytes (%) (Auto) 7, Eosinophils (%) (Auto) 4, Basophils (%) (Auto) 1, Neutrophils # (Auto) 6.3, Lymphocytes # (Auto) 1.6, Monocytes # (Auto) 0.6, Eosinophils # (Auto) 0.4H, Basophils # (Auto) 0.1, Immature Granulocyte # (Auto) 0.1, Sodium Level 140, Potassium Level 4.2, Chloride Level 107, Carbon Dioxide Level 22, Anion Gap 11, Blood Urea Nitrogen 22H, Creatinine 1.41H, Estimat Glomerular Filtration Rate 41, BUN/Creatinine Ratio 16, Glucose Level 132H, Calcium Level 8.5, Corrected Calcium 9.1, Total Bilirubin 0.7, Aspartate Amino Transf (AST/SGOT) 11, Alanine Aminotransferase (ALT/SGPT) < 6, Alkaline Phosphatase 75, Total Protein 6.0L, Albumin 3.3 01/17/22 11:01: Glucometer 163H Microbiology 01/13/22 MRSA Screen - Final, Complete MRSA not isolated A/P: Assessment: GIB - mangement per Dr. Bundy - anemia improved this morning following multiple transfusions - Per endoscopy by Dr. Bundy on 01-15-22: Reflux esophagitis, [place] grade C, large type 3 hiatal hernia with David ulceration with an overlying fibrin clot, no active bleed. Moderate gastritis,chronic stage II external and internal hemorrhoids, moderate sigmoid diverticulosis. CAD - Echocardiogram of 10-10-[address] Andrade showed LEF 60-65%. RA and LA mildly dilated. PASP 40-45 mmHg - MPI of 12-04-21: This study is indicative of a moderate amount of anterior ischemia. Normal regional wall motion. Normal global left ventricular systolic function with a calculated ejection fraction of 64%. - Cardiac cath of 01-02-22 following abn MPI (as noted above): Coronary artery disease primarily consisting of 80% proximal stenosis of a codominant right coronary artery. This was successfully stented with Skypoint 2.75 x 12 mm stent. No other significant lesions are seen. 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 Bundy on 01-15-22: Reflux esophagitis, [place] grade C, large type 3 hiatal hernia with David ulceration with an overlying fibrin clot, no active bleed. Moderate gastritis,chronic stage II external and internal hemorrhoids, moderate sigmoid diverticulosis - management per Dr. Bundy. - H/H has improved today following multiple blood transfusions Dr Bundy has allowed resumption of DAPT - We will restart the Plavix and stop Lovenox. We will hold ASA for now to allow healing since she was still requiring transfusions - Since we are stopping the Lovenox - we are ordering SCD's for DVT prophylaxis - Advise PT for strengthening - Management of anemia per Medical/Surgical services - Monitor lab closely VIVEK COLON Jan 17, 2022 08:51
--- NOTE | 2022-01-17 09:39 | Progress Note - Cardiology ---
Cardiology SOAP Progress Note Subjective: Gen weakness and malaise present No cp or palp or syncope or shortness of breath No abd discomfort No n/v Objective: I&O/Vital Signs 01/16/22 01/17/22 01/17/22 01/17/22 23:14 03:33 07:55 08:00 Temp 36.6 36.5 36.6 Pulse 69 70 70 Resp 18 16 20 B/P (MAP) 114/57 (76) 137/63 (87) 117/62 (80) Pulse Ox 90 91 94 O2 Delivery NIV CPAP NIV CPAP Room Air Room Air 01/17/22 00:00 Intake Total 870 ml Output Total 300 ml Balance 570 ml Weight (Pounds): 265 Weight (Ounces): 0.0 Weight (Calculated Kilograms): 120.917715 Constitutional: AAO x 3, well-developed, well-nourished Respiratory: No accessory muscle use, No respiratory distress; chest expansion is symmetric, chest is bilaterally symmetric, lungs clear to auscultation Cardiovascular: regular rate-rhythm; No JVD; S1 and S2 Gastrointestional: No guarding; audible bowel sounds, other (NG tube in place) Extremities: no lower extremity edema bilateral Neurologic/Psychiatric: other (moves all extremities) Skin: pallor; No rash on exposed areas, No ulcerations on exposed areas; other (right eye with ecchymosis; sutures above right eye - edges approx, no redness or drainage noted) Results/Procedures: Labs Laboratory Tests 01/16/22 11:20: Glucometer 140H 01/16/22 15:21: Glucometer 173H 01/16/22 20:26: Glucometer 162H 01/17/22 05:46: Glucometer 121H 01/17/22 05:56: White Blood Count 9.1, Red Blood Count 2.67L, Hemoglobin 8.2L, Hematocrit 26L, Mean Corpuscular Volume 96, Mean Corpuscular Hemoglobin 31, Mean Corpuscular Hemoglobin Concent 32, Red Cell Distribution Width 15.7H, Platelet Count 244, Mean Platelet Volume 10.0, Immature Granulocyte % (Auto) 1, Neutrophils (%) (Auto) 70, Lymphocytes (%) (Auto) 18, Monocytes (%) (Auto) 7, Eosinophils (%) (Auto) 4, Basophils (%) (Auto) 1, Neutrophils # (Auto) 6.3, Lymphocytes # (Auto) 1.6, Monocytes # (Auto) 0.6, Eosinophils # (Auto) 0.4H, Basophils # (Auto) 0.1, Immature Granulocyte # (Auto) 0.1, Sodium Level 140, Potassium Level 4.2, Chloride Level 107, Carbon Dioxide Level 22, Anion Gap 11, Blood Urea Nitrogen 22H, Creatinine 1.41H, Estimat Glomerular Filtration Rate 41, BUN/Creatinine Ratio 16, Glucose Level 132H, Calcium Level 8.5, Corrected Calcium 9.1, Total Bilirubin 0.7, Aspartate Amino Transf (AST/SGOT) 11, Alanine Aminotransferase (ALT/SGPT) < 6, Alkaline Phosphatase 75, Total Protein 6.0L, Albumin 3.3 Microbiology 01/13/22 MRSA Screen - Final, Complete MRSA not isolated Laboratory Tests 01/16/22 04:48 01/17/22 05:56 A/P: Assessment: GIB - mangement per Dr. Bundy - anemia improved this morning following multiple transfusions - Per endoscopy by Dr. Bundy on 01-15-22: Reflux esophagitis, [place] grade C, large type 3 hiatal hernia with David ulceration with an overlying fibrin clot, no active bleed. Moderate gastritis,chronic stage II external and internal hemorrhoids, moderate sigmoid diverticulosis. CAD - Echocardiogram of 10-10-[address] Andrade showed LEF 60-65%. RA and LA mildly di lated. PASP 40-45 mmHg - MPI of 12-04-21: This study is indicative of a moderate amount of anterior is chemia. Normal regional wall motion. Normal global left ventricular systolic function with a calculated ejection fraction of 64%. - Cardiac cath of 01-02-22 following abn MPI (as noted above): Coronary artery disease primarily consisting of 80% proximal stenosis of a codominant right coronary artery. This was successfully stented with Skypoint 2.75 x 12 mm stent. No other significant lesions are seen. 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
[2022-01-17 11:54] VITALS: BP 127/69
--- NOTE | 2022-01-17 12:12 | Physical Therapy Daily Note ---
PT Daily Note-Current Subjective Patient was sitting in bed prior to PT. Patient was motivated to start with PT Pain Location: No Pain Reported Mental Status Patient Orientation: Person, Place, Time, Situation Transfers SCALE: Activities may be completed with or without assistive devices. 5-Lfevtsmaop-xdkydcw completes the activity by him/herself with no assistance from a helper. 5-Set-up or Clean-up Assistance-helper sets up or cleans up; patient completes activity. [place] assists only prior to or following the activity. 4-Supervision or Touching Assistance-helper provides verbal cues and/or touching/steadying and/or contact guard assistance as patient completes activity. Assistance may be provided throughout the activity or intermittently. 3-Partial/Moderate Assistance-helper does LESS THAN HALF the effort. [place] lifts, holds or supports trunk or limbs, but provides less than half the effort. 2-Substantial/Maximal Assistance-helper does MORE THAN HALF the effort. [place] lifts or holds trunk or limbs and provides more than half the effort. 0-Goavzptqu-dywlly does ALL the effort. Patient does none of the effort to complete the activity. Or, the assistance of 2 or more helpers is required for the patient to complete the activity. If activity was not attempted, code reason: 7-Patient Refused. 9-Not Applicable-not attempted and the patient did not perform the activity before the current illness, exacerbation or injury. 10-Not Attempted due to Environmental Limitations-(lack of equipment, weather restraints, etc.). 88-Not Attempted due to Medical Conditions or Safety Concerns. Sit to Stand (QC): 4 Weight Bearing Full Weight Bearing Full Weight Bearing Gait Training Does the Patient Walk?: Yes Distance: 400' Walk 10 feet (QC): 4 Walk 50 ft with 2 Turns(QC): 4 Walk 150 ft (QC): 4 Gait Persons Needed: 1 Gait Assistive Device: FWW Patient walked with FWW, CGA, in recipricol fashion. Pt walked with adequate speed, with good ability to put weight through legs, only using walker for stability. Wheelchair Training Does the Pt Use a Wheelchair?: No Type of Wheelchair: N/A Treatments Ambulation Assessment Current Status: Good Progress Patient tolerated long distance walking of 400' with only one standing recovery period. Patient was left in chair with nurse call, tray, and all needs met. PT Engineer Booster And Exhauster Goals Engineer Booster And Exhauster Goals PT Jail Goals Time Frame: Jan 25, 2022 Roll Left & Right (QC): 6 Sit to Lying (QC): 6 Lying-Sitting on Side/Bed(QC): 6 Sit to Stand (QC): 6 Chair/Ysh-lj-Raxgr Xfer(QC): 6 Toilet Transfer (QC): 6 Does the Patient Walk: Yes Walk 10 feet (QC): 6 Walk 50ft with 2 Turns (QC): 6 Walk 150 ft (QC): 6 1 Step (curb) (QC): 6 4 Steps (QC): 6 PT Plan Problem List Problem List: Activity Tolerance, Functional Strength, Safety, Balance, Gait Treatment/Plan Treatment Plan: Continue Plan of Care Treatment Plan: Bed Mobility, Education, Functional Activity Isaac, Functional Strength, Group Therapy, Gait, Safety, Therapeutic Exercise, Transfers Treatment Duration: Feb 08, 2022 Frequency: 6 times per week Estimated Hrs Per Day: .25 hour per day Patient and/or Family Agrees t: Yes Time/GCodes Time In: 09 Time Out: 0951 Total Billed Treatment Time: 11 Total Billed Treatment 1 visit FA 11min MARTINE PRATHER PT Jan 17, 2022 12:12
[2022-01-17 15:47] VITALS: BP 123/58
[2022-01-17 19:29] VITALS: BP 140/63
[2022-01-18 00:11] VITALS: BP 129/56
[2022-01-18 04:12] VITALS: BP 145/65
[2022-01-18] MEDS: inSUlin ASPART (NovoLOG) 1 UNIT/0.01 ML (CHARGE PER UNIT) SC SCH ×2 (05:40→13:14)
[2022-01-18] MEDS: SUCRALFATE 1 GM (CARAFATE) TAB PO SCH ×2 (05:53→09:54)
--- NOTE | 2022-01-18 06:10 | Progress Note ---
Subjective Date Seen by a Provider: Jan 18, 2022 Objective Exam Last Set of Vital Signs Vital Signs Date Time Temp Pulse Resp B/P (MAP) Pulse Ox O2 Delivery O2 Flow Rate FiO2 01/18/22 04:12 36.6 65 18 145/65 (91) 97 Room Air 01/16/22 08:00 2.00 Capillary Refill : Less Than 3 Seconds I&O Intake and Output 01/18/22 00:00 Intake Total 1580 ml Output Total 1500 ml Balance 80 ml Intake Oral 1580 ml Output Urine Total 1500 ml # Bowel Movements 1 Results Lab Laboratory Tests 01/17/22 11:01: Glucometer 163H 01/17/22 15:09: Glucometer 221H 01/17/22 17:04: Lab Scanned Report Transfusion Reaction Form 01/17/22 20:44: Glucometer 156H 01/18/22 05:21: Glucometer 133H 01/18/22 05:55: Microbiology 01/13/22 MRSA Screen - Final, Complete MRSA not isolated Assessment/Plan Assessment/Plan Assess & Plan/Chief Complaint Assessment: Severe GI bleed due to ulcer confirmed on EGD Acute blood loss anemia status post 3 units of blood Chronic kidney disease with solo kidney Diabetes Hypertension VLADIMIR Recent stent to RCA placed on Plavix and aspirin Obesity Plan: Monitor hemoglobin PT and OT Possible discharge tomorrow Diagnosis/Problems Diagnosis/Problems (1) Syncope Status: Acute Qualifiers: Qualified Codes: R55 - Syncope and collapse (2) Hematemesis Status: Acute Qualifiers: Qualified Codes: K92.0 - Hematemesis (3) CAD (coronary artery disease) (4) Pulmonary arterial hypertension (5) CKD (chronic kidney disease) Clinical Quality Measures DVT/VTE Risk/Contraindication: Contraindications-Pharm: Other *list below* Other: JERZY Zaragoza DO Jan 18, 2022 06:10
[2022-01-18 06:21] LABS: BASOPHILS # (AUTO) 0.1 10^3/uL (0.0-0.1); BASOPHILS % (AUTO) 1 % (0-10); EOSINOPHILS # (AUTO) 0.4 10^3/uL (0.0-0.3); EOSINOPHILS % (AUTO) 5 % (0-10); HEMATOCRIT 24 % (35-52); LYMPHOCYTES # (AUTO) 1.4 10^3/uL (1.0-4.0); LYMPHOCYTES % (AUTO) 17 % (12-44); MEAN CORPUSCULAR HEMOGLOBIN 31 pg (25-34); MEAN CORPUSCULAR HGB CONC 33 g/dL (32-36); MEAN CORPUSCULAR VOLUME 94 fL (80-99); MONOCYTES # (AUTO) 0.8 10^3/uL (0.0-1.0); MONOCYTES % (AUTO) 9 % (0-12); NEUTROPHILS # (AUTO) 5.5 10^3/uL (1.8-7.8); NEUTROPHILS % (AUTO) 67 % (42-75); PLATELET COUNT 251 10^3/uL (130-400); WHITE BLOOD COUNT 8.2 10^3/uL (4.3-11.0)
[2022-01-18 06:44] LABS: ALBUMIN 3.3 GM/DL (3.2-4.5); BILIRUBIN,TOTAL 0.6 MG/DL (0.1-1.0); CALCIUM 8.5 MG/DL (8.5-10.1); CREATININE SERUM 1.39 MG/DL (0.60-1.30); TOTAL PROTEIN 5.9 GM/DL (6.4-8.2)
[2022-01-18 07:52] VITALS: BP 132/69
[2022-01-18] MEDS: CLOPIDOGREL 75 MG (PLAVIX) TABLET PO SCH (09:52)
[2022-01-18] MEDS: DOCUSATE SODIUM 100 MG (COLACE) CAP PO SCH (09:53)
[2022-01-18] MEDS: SENNOSIDES 8.6 MG (SENOKOT) TAB PO SCH (09:53)
[2022-01-18] MEDS: PANTOPRAZOLE 40 MG (PROTONIX) TAB PO SCH (09:53)
--- NOTE | 2022-01-18 10:13 | Progress Note - Cardiology ---
Cardiology SOAP Progress Note Objective: I&O/Vital Signs 01/18/22 01/18/22 01/18/22 01/18/22 00:11 04:12 07:43 07:52 Temp 36.6 36.6 37.1 Pulse 65 65 67 Resp 18 18 16 B/P (MAP) 129/56 (80) 145/65 (91) 132/69 (90) Pulse Ox 94 97 98 96 O2 Delivery NIV Bilevel Room Air Room Air Room Air O2 Flow Rate 0.00 01/18/22 08:04 O2 Delivery Room Air 01/18/22 00:00 Intake Total 1380 ml Output Total 750 ml Balance 630 ml Weight (Pounds): 265 Weight (Ounces): 0.0 Weight (Calculated Kilograms): 120.681129 Constitutional: AAO x 3, well-developed, well-nourished Respiratory: No accessory muscle use, No respiratory distress; chest expansion is symmetric, chest is bilaterally symmetric, lungs clear to auscultation Cardiovascular: regular rate-rhythm; No JVD; S1 and S2 Gastrointestional: No guarding; audible bowel sounds, other (NG tube in place) Extremities: no lower extremity edema bilateral Neurologic/Psychiatric: other (moves all extremities) Skin: pallor; No rash on exposed areas, No ulcerations on exposed areas; other (right eye with ecchymosis; sutures above right eye - edges approx, no redness or drainage noted) Results/Procedures: Labs Laboratory Tests 01/17/22 11:01: Glucometer 163H 01/17/22 15:09: Glucometer 221H 01/17/22 17:04: Lab Scanned Report Transfusion Reaction Form 01/17/22 20:44: Glucometer 156H 01/18/22 05:21: Glucometer 133H 01/18/22 05:55: White Blood Count 8.2, Red Blood Count 2.58L, Hemoglobin 8.0L, Hematocrit 24L, Mean Corpuscular Volume 94, Mean Corpuscular Hemoglobin 31, Mean Corpuscular Hemoglobin Concent 33, Red Cell Distribution Width 15.0H, Platelet Count 251, Mean Platelet Volume 10.0, Immature Granulocyte % (Auto) 1, Neutrophils (%) (Auto) 67, Lymphocytes (%) (Auto) 17, Monocytes (%) (Auto) 9, Eosinophils (%) (Auto) 5, Basophils (%) (Auto) 1, Neutrophils # (Auto) 5.5, Lymphocytes # (Auto) 1.4, Monocytes # (Auto) 0.8, Eosinophils # (Auto) 0.4H, Basophils # (Auto) 0.1, Immature Granulocyte # (Auto) 0.1, Sodium Level 139, Potassium Level 4.0, Chloride Level 106, Carbon Dioxide Level 23, Anion Gap 10, Blood Urea Nitrogen 18, Creatinine 1.39H, Estimat Glomerular Filtration Rate 42, BUN/Creatinine Ratio 13, Glucose Level 141H, Calcium Level 8.5, Corrected Calcium 9.1, Total Bilirubin 0.6, Aspartate Amino Transf (AST/SGOT) 15, Alanine Aminotransferase (A LT/SGPT) 7, Alkaline Phosphatase 81, Total Protein 5.9L, Albumin 3.3 Microbiology 01/13/22 MRSA Screen - Final, Complete MRSA not isolated A/P: Assessment: GIB - mangement per Dr. Bundy - anemia improved this morning following multiple transfusions - Per endoscopy by Dr. Bundy on 01-15-22: Reflux esophagitis, [place] grade C, large type 3 hiatal hernia with David ulceration with an overlying fibrin clot, no active bleed. Moderate gastritis,chronic stage II external and internal hemorrhoids, moderate sigmoid diverticulosis. CAD - Echocardiogram of 10-10-[address] Andrade showed LEF 60-65%. RA and LA mildly dilated. PASP 40-45 mmHg - MPI of 12-04-21: This study is indicative of a moderate amount of anterior ischemia. Normal regional wall motion. Normal global left ventricular systolic function with a calculated ejection fraction of 64%. - Cardiac cath of 01-02-22 following abn MPI (as noted above): Coronary artery disease primarily consisting of 80% proximal stenosis of a codominant right coronary artery. This was successfully stented with Skypoint 2.75 x 12 mm stent. No other significant lesions are seen. 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
--- NOTE | 2022-01-18 10:44 | Physical Therapy Daily Note ---
PT Daily Note-Current Subjective Patient was up in chair and ready to get started with PT Pain Location: No Pain Reported Mental Status Patient Orientation: Person, Place, Time, Situation Transfers SCALE: Activities may be completed with or without assistive devices. 8-Jujvitjewh-vcraddr completes the activity by him/herself with no assistance from a helper. 5-Set-up or Clean-up Assistance-helper sets up or cleans up; patient completes activity. [place] assists only prior to or following the activity. 4-Supervision or Touching Assistance-helper provides verbal cues and/or touching/steadying and/or contact guard assistance as patient completes activity. Assistance may be provided throughout the activity or intermittently. 3-Partial/Moderate Assistance-helper does LESS THAN HALF the effort. [place] lifts, holds or supports trunk or limbs, but provides less than half the effort. 2-Substantial/Maximal Assistance-helper does MORE THAN HALF the effort. [place] lifts or holds trunk or limbs and provides more than half the effort. 5-Nscuwyfjf-xdhpir does ALL the effort. Patient does none of the effort to complete the activity. Or, the assistance of 2 or more helpers is required for the patient to complete the activity. If activity was not attempted, code reason: 7-Patient Refused. 9-Not Applicable-not attempted and the patient did not perform the activity b efore the current illness, exacerbation or injury. 10-Not Attempted due to Environmental Limitations-(lack of equipment, weather restraints, etc.). 88-Not Attempted due to Medical Conditions or Safety Concerns. Sit to Stand (QC): 6 Weight Bearing Full Weight Bearing Full Weight Bearing Gait Training Does the Patient Walk?: Yes Distance: 300' Walk 10 feet (QC): 6 Walk 50 ft with 2 Turns(QC): 6 Walk 150 ft (QC): 6 Gait Assistive Device: FWW Wheelchair Training Does the Pt Use a Wheelchair?: No Type of Wheelchair: N/A Treatments Ambulation Assessment Current Status: Good Progress Patient demonstrated good walking mechanics, tolerance, and good stability. Patient does not require the needs of skilled physical therapy, and discontinuation of PT is recommended. Patient instructed to ambulate PRN in hallway. PT Longterm Goals Longterm Goals PT Float Operator Goals Time Frame: Jan 25, 2022 Roll Left & Right (QC): 6 Sit to Lying (QC): 6 Lying-Sitting on Side/Bed(QC): 6 Sit to Stand (QC): 6 Chair/Fin-qx-Nhxbf Xfer(QC): 6 Toilet Transfer (QC): 6 Does the Patient Walk: Yes Walk 10 feet (QC): 6 Walk 50ft with 2 Turns (QC): 6 Walk 150 ft (QC): 6 1 Step (curb) (QC): 6 4 Steps (QC): 6 PT Plan Treatment/Plan Treatment Plan: Discontinue PT, goals met Treatment Plan: Bed Mobility, Education, Functional Activity Isaac, Functional Strength, Group Therapy, Gait, Safety, Therapeutic Exercise, Transfers Treatment Duration: Jan 18, 2022 Frequency: 6 times per week Estimated Hrs Per Day: .25 hour per day Patient and/or Family Agrees t: Yes Time/GCodes Time In: 1001 Time Out: 1009 Total Billed Treatment Time: 8 Total Billed Treatment 1 visit FA 8 min MARTINE PRATHER PT Jan 18, 2022 10:44
--- NOTE | 2022-01-18 11:24 | Progress Note - Cardiology ---
Cardiology SOAP Progress Note Subjective: Gen malaise and weakness present Shortness of breath modestly improved No cp No n/v/d Objective: I&O/Vital Signs 01/18/22 01/18/22 01/18/22 01/18/22 00:11 04:12 07:43 07:52 Temp 36.6 36.6 37.1 Pulse 65 65 67 Resp 18 18 16 B/P (MAP) 129/56 (80) 145/65 (91) 132/69 (90) Pulse Ox 94 97 98 96 O2 Delivery NIV Bilevel Room Air Room Air Room Air O2 Flow Rate 0.00 01/18/22 08:04 O2 Delivery Room Air 01/18/22 00:00 Intake Total 1380 ml Output Total 750 ml Balance 630 ml Weight (Pounds): 265 Weight (Ounces): 0.0 Weight (Calculated Kilograms): 120.912852 Constitutional: AAO x 3, well-developed, well-nourished Respiratory: No accessory muscle use, No respiratory distress; chest expansion is symmetric, chest is bilaterally symmetric, lungs clear to auscultation Cardiovascular: regular rate-rhythm; No JVD; S1 and S2 Gastrointestional: No guarding; audible bowel sounds, other (NG tube in place) Extremities: no lower extremity edema bilateral Neurologic/Psychiatric: other (moves all extremities) Skin: pallor; No rash on exposed areas, No ulcerations on exposed areas; other (right eye with ecchymosis; sutures above right eye - edges approx, no redness or drainage noted) Results/Procedures: Labs Laboratory Tests 01/17/22 15:09: Glucometer 221H 01/17/22 17:04: Lab Scanned Report Transfusion Reaction Form 01/17/22 20:44: Glucometer 156H 01/18/22 05:21: Glucometer 133H 01/18/22 05:55: White Blood Count 8.2, Red Blood Count 2.58L, Hemoglobin 8.0L, Hematocrit 24L, Mean Corpuscular Volume 94, Mean Corpuscular Hemoglobin 31, Mean Corpuscular Hemoglobin Concent 33, Red Cell Distribution Width 15.0H, Platelet Count 251, Mean Platelet Volume 10.0, Immature Granulocyte % (Auto) 1, Neutrophils (%) (Auto) 67, Lymphocytes (%) (Auto) 17, Monocytes (%) (Auto) 9, Eosinophils (%) (Auto) 5, Basophils (%) (Auto) 1, Neutrophils # (Auto) 5.5, Lymphocytes # (Auto) 1.4, Monocytes # (Auto) 0.8, Eosinophils # (Auto) 0.4H, Basophils # (Auto) 0.1, Immature Granulocyte # (Auto) 0.1, Sodium Level 139, Potassium Level 4.0, Chloride Level 106, Carbon Dioxide Level 23, Anion Gap 10, Blood Urea Nitrogen 18, Creatinine 1.39H, Estimat Glomerular Filtration Rate 42, BUN/Creatinine Ratio 13, Glucose Level 141H, Calcium Level 8.5, Corrected Calcium 9.1, Total Bilirubin 0.6, Aspartate Amino Transf (AST/SGOT) 15, Alanine Aminotransferase (ALT/SGPT) 7, Alkaline Phosphatase 81, Total Protein 5.9L, Albumin 3.3 01/18/22 11:14: Glucometer 230H Microbiology 01/13/22 MRSA Screen - Final, Complete MRSA not isolated Laboratory Tests 01/17/22 05:56 01/18/22 05:55 A/P: Assessment: GIB - mangement per Dr. Bundy - has received multiple transfusions - Per endoscopy by Dr. Bundy on 01-15-22: Reflux esophagitis, [place] grade C, large type 3 hiatal hernia with David ulceration with an overlying fibrin clot, no active bleed. Moderate gastritis,chronic stage II external and internal hemorrhoids, moderate sigmoid diverticulosis. CAD - Echocardiogram of 10-10-[address] Andrade showed LEF 60-65%. RA and LA mildly dilated. PASP 40-45 mmHg - MPI of 12-04-21: This study is indicative of a moderate amount of anterior ischemia. Normal regional wall motion. Normal global left ventricular systolic function with a calculated ejection fraction of 64%. - Cardiac cath of 01-02-22 following abn MPI (as noted above): Coronary artery disease primarily consisting of 80% proximal stenosis of a codominant right coronary artery. This was successfully stented with Skypoint 2.75 x 12 mm stent. No other significant lesions are seen. 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
[2022-01-18] MEDS ORDERED: ONDA4TAB11 PO (11:26)
[2022-01-18] MEDS ORDERED: PANT40TA52 PO (11:26)
[2022-01-18] MEDS ORDERED: SUCR1TAB PO (11:26)
--- NOTE | 2022-01-18 11:29 | Discharge Summary ---
Diagnosis/Chief Complaint Date of Admission Jan 13, 2022 at 12:09 Date of Discharge Discharge Date: Jan 18, 2022 Discharge Diagnosis Assessment: Severe GI bleed due to ulcer confirmed on EGD Acute blood loss anemia status post 3 units of blood Chronic kidney disease with solo kidney Diabetes Hypertension VLADIMIR Recent stent to RCA placed on Plavix and aspirin Obesity Discharge Summary Discharge Physical Examination Allergies: Coded Allergies: No Known Drug Allergies (Verified , 08/09/08) Vitals & I&Os Vital Signs Date Time Temp Pulse Resp B/P (MAP) Pulse Ox O2 Delivery O2 Flow Rate FiO2 01/18/22 14:29 36.1 72 18 133/71 97 Room Air 0.00 General Appearance: Alert, Oriented X3, Cooperative Respiratory: Clear to Auscultation Cardiovascular: Regular Rate Neuro: Normal Gait, Normal Speech, Strength at 5/5 X4 Ext Psych/Mental Status: Mental Status NL Hospital Course Was the Problem List Reviewed?: Yes Pt had an uneventful 6 day hospital course, most of it in the ICU after severe GI bleeding from gastric ulcer confirmed on EGD. Pt was on Plavix and Aspirin. Overall she required [address] Bundy performed EGD. Dr. Irby consulted and held Aspirin. Pt was deemed stable for discharge and her hemoglobin was 8.0 and overall doing very well. She will see me in close follow- up. Labs (last 24 hrs) Laboratory Tests 01/13/22 10:38: White Blood Count 10.8, Red Blood Count 2.94L, Hemoglobin 9.0L, Hematocrit 28L, Mean Corpuscular Volume 96, Mean Corpuscular Hemoglobin 31, Mean Corpuscular Hemoglobin Concent 32, Red Cell Distribution Width 14.0, Platelet Count 362, Mean Platelet Volume 9.8, Immature Granulocyte % (Auto) 1, Neutrophils (%) (Auto) 82H, Lymphocytes (%) (Auto) 11L, Monocytes (%) (Auto) 5, Eosinophils (%) (Auto) 2, Basophils (%) (Auto) 1, Neutrophils # (Auto) 8.8H, Lymphocytes # (Auto) 1.2, Monocytes # (Auto) 0.5, Eosinophils # (Auto) 0.2, Basophils # (Auto) 0.1, Immature Granulocyte # (Auto) 0.1, Sodium Level 136, Potassium Level 5.2H, Chloride Level 104, Carbon Dioxide Level 20L, Anion Gap 12, Blood Urea Nitrogen 39H, Creatinine 1.46H, Estimat Glomerular Filtration Rate 39, BUN/Creatinine Ratio 27, Glucose Level 165H, Calcium Level 9.1, Corrected Calcium 9.4, Iron Level 133, Total Bilirubin 1.0, Aspartate Amino Transf (AST/SGOT) 12, Alanine Aminotransferase (ALT/SGPT) < 6, Alkaline Phosphatase 92, Total Protein 6.2L, Albumin 3.6, Vitamin B12 Level 520 01/13/22 10:51: Urine Color YELLOW, Urine Clarity CLEAR, Urine pH 5.5, Urine Specific Pandora 1.025H, Urine Protein 1+H, Urine Glucose (UA) NEGATIVE, Urine Ketones NEGATIVE, Urine Nitrite NEGATIVE, Urine Bilirubin NEGATIVE, Urine Urobilinogen 0.2, Urine Leukocyte Esterase NEGATIVE, Urine RBC (Auto) NEGATIVE, Urine RBC NONE, Urine WBC NONE, Urine Squamous Epithelial Cells 0-2, Urine Crystals NONE, Urine Bacteria NEGATIVE, Urine Casts NONE, Urine Mucus NEGATIVE, Urine Culture Indicated NO 01/13/22 14:10: Glucometer 160H 01/13/22 18:07: Hemoglobin 7.3L, Hematocrit 23L 01/13/22 21:24: Glucometer 161H 01/14/22 01:03: Hemoglobin 7.5L, Hematocrit 23L 01/14/22 04:29: Hemoglobin 7.2L, Hematocrit 22L, White Blood Count 11.7H, Red Blood Count 2.37L, Mean Corpuscular Volume 93, Mean Corpuscular Hemoglobin 30, Mean Corpuscular Hemoglobin Concent 33, Red Cell Distribution Width 16.1H, Platelet Count 308, Mean Platelet Volume 10.0, Immature Granulocyte % (Auto) 0, Neutrophils (%) (Auto) 71, Lymphocytes (%) (Auto) 20, Monocytes (%) (Auto) 7, Eosinophils (%) (Auto) 1, Basophils (%) (Auto) 1, Neutrophils # (Auto) 8.3H, Lymphocytes # (Auto) 2.4, Monocytes # (Auto) 0.8, Eosinophils # (Auto) 0.1, Basophils # (Auto) 0.1, Immature Granulocyte # (Auto) 0.1, Sodium Level 138, Potassium Level 4.2, Chloride Level 106, Carbon Dioxide Level 20L, Anion Gap 12, Blood Urea Nitrogen 64H, Creatinine 1.55H, Estimat Glomerular Filtration Rate 37, BUN/Creatinine Ratio 41, Glucose Level 128H, Calcium Level 8.4L, Corrected Calcium 9.1, Total Bilirubin 0.9, Aspartate Amino Transf (AST/SGOT) 10, Alanine Aminotransferase (ALT/SGPT) < 6, Alkaline Phosphatase 68, Total Protein 5.1L, Albumin 3.1L 01/14/22 11:04: Glucometer 156H 01/14/22 13:59: White Blood Count 14.6H, Red Blood Count 2.70L, Hemoglobin 8.3L, Hematocrit 25L, Mean Corpuscular Volume 93, Mean Corpuscular Hemoglobin 31, Mean Corpuscular Hemoglobin Concent 33, Red Cell Distribution Width 16.2H, Platelet Count 290, Mean Platelet Volume 9.7 01/14/22 15:01: Lab Scanned Report Transfusion Reaction Form 01/14/22 16:03: Glucometer 134H 01/14/22 20:44: Glucometer 146H 01/15/22 04:24: White Blood Count 14.5H, Red Blood Count 2.44L, Hemoglobin 7.5L, Hematocrit 23L, Mean Corpuscular Volume 95, Mean Corpuscular Hemoglobin 31, Mean Corpuscular Hemoglobin Concent 33, Red Cell Distribution Width 16.0H, Platelet Count 243, Mean Platelet Volume 9.8, Immature Granulocyte % (Auto) 1, Neutrophils (%) (Auto) 83H, Lymphocytes (%) (Auto) 8L, Monocytes (%) (Auto) 8, Eosinophils (%) (Auto) 1, Basophils (%) (Auto) 1, Neutrophils # (Auto) 12.0H, Lymphocytes # (Auto) 1.2, Monocytes # (Auto) 1.1H, Eosinophils # (Auto) 0.1, Basophils # (Auto) 0.1, Immature Granulocyte # (Auto) 0.1, Sodium Level 141, Potassium Level 4.3, Chloride Level 110H, Carbon Dioxide Level 21, Anion Gap 10, Blood Urea Nitrogen 41H, Creatinine 1.48H, Estimat Glomerular Filtration Rate 39, BUN/Creatinine Ratio 28, Glucose Level 143H, Calcium Level 8.3L, Corrected Calcium 8.9, Total Bilirubin 0.8, Aspartate Amino Transf (AST/SGOT) 8, Alanine Aminotransferase (ALT/SGPT) < 6, Alkaline Phosphatase 71, Total Protein 5.7L, Albumin 3.3 3/22/22 10:40: Glucometer 138H 01/15/22 15:33: Glucometer 149H 01/15/22 21:12: Glucometer 137H 01/16/22 04:48: White Blood Count 12.4H, Red Blood Count 2.27L, Hemoglobin 7.1L, Hematocrit 22L, Mean Corpuscular Volume 98, Mean Corpuscular Hemoglobin 31, Mean Corpuscular Hemoglobin Concent 32, Red Cell Distribution Width 16.0H, Platelet Count 233, Mean Platelet Volume 10.1, Immature Granulocyte % (Auto) 1, Neutrophils (%) (Auto) 79H, Lymphocytes (%) (Auto) 12, Monocytes (%) (Auto) 7, Eosinophils (%) (Auto) 1, Basophils (%) (Auto) 1, Neutrophils # (Auto) 9.8H, Lymphocytes # (Auto) 1.4, Monocytes # (Auto) 0.8, Eosinophils # (Auto) 0.2, Basophils # (Auto) 0.1, Immature Granulocyte # (Auto) 0.1, Sodium Level 144, Potassium Level 4.3, Chloride Level 111H, Carbon Dioxide Level 22, Anion Gap 11, Blood Urea Nitrogen 27H, Creatinine 1.39H, Estimat Glomerular Filtration Rate 42, BUN/Creatinine Ratio 19, Glucose Level 137H, Calcium Level 8.3L, Corrected Calcium 8.9, Total Bilirubin 0.6, Aspartate Amino Transf (AST/SGOT) 9, Alanine Aminotransferase (ALT/SGPT) < 6, Alkaline Phosphatase 70, Total Protein 5.7L, Albumin 3.2 01/16/22 11:20: Glucometer 140H 01/16/22 15:21: Glucometer 173H 01/16/22 20:26: Glucometer 162H 01/17/22 05:46: Glucometer 121H 01/17/22 05:56: White Blood Count 9.1, Red Blood Count 2.67L, Hemoglobin 8.2L, Hematocrit 26L, Mean Corpuscular Volume 96, Mean Corpuscular Hemoglobin 31, Mean Corpuscular Hemoglobin Concent 32, Red Cell Distribution Width 15.7H, Platelet Count 244, Mean Platelet Volume 10.0, Immature Granulocyte % (Auto) 1, Neutrophils (%) (Auto) 70, Lymphocytes (%) (Auto) 18, Monocytes (%) (Auto) 7, Eosinophils (%) (Auto) 4, Basophils (%) (Auto) 1, Neutrophils # (Auto) 6.3, Lymphocytes # (Auto) 1.6, Monocytes # (Auto) 0.6, Eosinophils # (Auto) 0.4H, Basophils # (Auto) 0.1, Immature Granulocyte # (Auto) 0.1, Sodium Level 140, Potassium Level 4.2, Chloride Level 107, Carbon Dioxide Level 22, Anion Gap 11, Blood Urea Nitrogen 22H, Creatinine 1.41H, Estimat Glomerular Filtration Rate 41, BUN/Creatinine Ratio 16, Glucose Level 132H, Calcium Level 8.5, Corrected Calcium 9.1, Total Bilirubin 0.7, Aspartate Amino Transf (AST/SGOT) 11, Alanine Aminotransferase (A LT/SGPT) < 6, Alkaline Phosphatase 75, Total Protein 6.0L, Albumin 3.3 01/17/22 11:01: Glucometer 163H 01/17/22 15:09: Glucometer 221H 01/17/22 17:04: Lab Scanned Report Transfusion Reaction Form 01/17/22 20:44: Glucometer 156H 01/18/22 05:21: Glucometer 133H 01/18/22 05:55: White Blood Count 8.2, Red Blood Count 2.58L, Hemoglobin 8.0L, Hematocrit 24L, Mean Corpuscular Volume 94, Mean Corpuscular Hemoglobin 31, Mean Corpuscular Hemoglobin Concent 33, Red Cell Distribution Width 15.0H, Platelet Count 251, Mean Platelet Volume 10.0, Immature Granulocyte % (Auto) 1, Neutrophils (%) (Auto) 67, Lymphocytes (%) (Auto) 17, Monocytes (%) (Auto) 9, Eosinophils (%) (Auto) 5, Basophils (%) (Auto) 1, Neutrophils # (Auto) 5.5, Lymphocytes # (Auto) 1.4, Monocytes # (Auto) 0.8, Eosinophils # (Auto) 0.4H, Basophils # (Auto) 0.1, Immature Granulocyte # (Auto) 0.1, Sodium Level 139, Potassium Level 4.0, Chloride Level 106, Carbon Dioxide Level 23, Anion Gap 10, Blood Urea Nitrogen 18, Creatinine 1.39H, Estimat Glomerular Filtration Rate 42, BUN/Creatinine Ratio 13, Glucose Level 141H, Calcium Level 8.5, Corrected Calcium 9.1, Total Bilirubin 0.6, Aspartate Amino Transf (AST/SGOT) 15, Alanine Aminotransferase (ALT/SGPT) 7, Alkaline Phosphatase 81, Total Protein 5.9L, Albumin 3.3 01/18/22 11:14: Glucometer 230H Microbiology 01/13/22 MRSA Screen - Final, Complete MRSA not isolated Pending Labs Microbiology Date/Time Source Procedure Growth Status 01/13/22 13:58 Nasal MRSA Screen - Final MRSA not isolated Complete Laboratory Tests 01/13/22 10:38: White Blood Count 10.8, Red Blood Count 2.94, Hemoglobin 9.0, Hematocrit 28, Mean Corpuscular Volume 96, Mean Corpuscular Hemoglobin 31, Mean Corpuscular Hemoglobin Concent 32, Red Cell Distribution Width 14.0, Platelet Count 362, Mean Platelet Volume 9.8, Immature Granulocyte % (Auto) 1, Neutrophils (%) (Auto) 82, Lymphocytes (%) (Auto) 11, Monocytes (%) (Auto) 5, Eosinophils (%) (Auto) 2, Basophils (%) (Auto) 1, Neutrophils # (Auto) 8.8, Lymphocytes # (Auto) 1.2, Monocytes # (Auto) 0.5, Eosinophils # (Auto) 0.2, Basophils # (Auto) 0.1, Immature Granulocyte # (Auto) 0.1, Sodium Level 136, Potassium Level 5.2, Chloride Level 104, Carbon Dioxide Level 20, Anion Gap 12, Blood Urea Nitrogen 39, Creatinine 1.46, Estimat Glomerular Filtration Rate 39, BUN/Creatinine Ratio 27, Glucose Level 165, Calcium Level 9.1, Corrected Calcium 9.4, Iron Level 133, Total Bilirubin 1.0, Aspartate Amino Transf (AST/SGOT) 12, Alanine Aminotransferase (ALT/SGPT) < 6, Alkaline Phosphatase 92, Total Protein 6.2, Albumin 3.6, Vitamin B12 Level 520 01/13/22 10:51: Urine Color YELLOW, Urine Clarity CLEAR, Urine pH 5.5, Urine Specific Pandora 1.025, Urine Protein 1+, Urine Glucose (UA) NEGATIVE, Urine Ketones NEGATIVE, Urine Nitrite NEGATIVE, Urine Bilirubin NEGATIVE, Urine Urobilinogen 0.2, Urine Leukocyte Esterase NEGATIVE, Urine RBC (Auto) NEGATIVE, Urine RBC NONE, Urine WBC NONE, Urine Squamous Epithelial Cells 0-2, Urine Crystals NONE, Urine Bacteria NEGATIVE, Urine Casts NONE, Urine Mucus NEGATIVE, Urine Culture Indicated NO 01/13/22 14:10: Glucometer 160 01/13/22 18:07: Hemoglobin 7.3, Hematocrit 23 01/13/22 21:24: Glucometer 161 01/14/22 01:03: Hemoglobin 7.5, Hematocrit 23 01/14/22 04:29: Hemoglobin 7.2, Hematocrit 22, White Blood Count 11.7, Red Blood Count 2.37, Mean Corpuscular Volume 93, Mean Corpuscular Hemoglobin 30, Mean Corpuscular Hemoglobin Concent 33, Red Cell Distribution Width 16.1, Platelet Count 308, Mean Platelet Volume 10.0, Immature Granulocyte % (Auto) 0, Neutrophils (%) (Auto) 71, Lymphocytes (%) (Auto) 20, Monocytes (%) (Auto) 7, Eosinophils (%) (Auto) 1, Basophils (%) (Auto) 1, Neutrophils # (Auto) 8.3, Lymphocytes # (Auto) 2.4, Monocytes # (Auto) 0.8, Eosinophils # (Auto) 0.1, Basophils # (Auto) 0.1, Immature Granulocyte # (Auto) 0.1, Sodium Level 138, Potassium Level 4.2, Chloride Level 106, Carbon Dioxide Level 20, Anion Gap 12, Blood Urea Nitrogen 64, Creatinine 1.55, Estimat Glomerular Filtration Rate 37, BUN/Creatinine Ratio 41, Glucose Level 128, Calcium Level 8.4, Corrected Calcium 9.1, Total Bilirubin 0.9, Aspartate Amino Transf (AST/SGOT) 10, Alanine Aminotransferase (ALT/SGPT) < 6, Alkaline Phosphatase 68, Total Protein 5.1, Albumin 3.1 01/14/22 11:04: Glucometer 156 01/14/22 13:59: White Blood Count 14.6, Red Blood Count 2.70, Hemoglobin 8.3, Hematocrit 25, Mean Corpuscular Volume 93, Mean Corpuscular Hemoglobin 31, Mean Corpuscular Hemoglobin Concent 33, Red Cell Distribution Width 16.2, Platelet Count 290, Mean Platelet Volume 9.7 01/14/22 15:01: Lab Scanned Report Transfusion Reaction Form 01/14/22 16:03: Glucometer 134 01/14/22 20:44: Glucometer 146 01/15/22 04:24: White Blood Count 14.5, Red Blood Count 2.44, Hemoglobin 7.5, Hematocrit 23, Mean Corpuscular Volume 95, Mean Corpuscular Hemoglobin 31, Mean Corpuscular Hemoglobin Concent 33, Red Cell Distribution Width 16.0, Platelet Count 243, Mean Platelet Volume 9.8, Immature Granulocyte % (Auto) 1, Neutrophils (%) (Auto) 83, Lymphocytes (%) (Auto) 8, Monocytes (%) (Auto) 8, Eosinophils (%) (Auto) 1, Basophils (%) (Auto) 1, Neutrophils # (Auto) 12.0, Lymphocytes # (Auto) 1.2, Monocytes # (Auto) 1.1, Eosinophils # (Auto) 0.1, Basophils # (Auto) 0.1, Immature Granulocyte # (Auto) 0.1, Sodium Level 141, Potassium Level 4.3, Chloride Level 110, Carbon Dioxide Level 21, Anion Gap 10, Blood Urea Nitrogen 41, Creatinine 1.48, Estimat Glomerular Filtration Rate 39, BUN/Creatinine Ratio 28, Glucose Level 143, Calcium Level 8.3, Corrected Calcium 8.9, Total Bilirubin 0.8, Aspartate Amino Transf (AST/SGOT) 8, Alanine Aminotransferase (ALT/SGPT) < 6, Alkaline Phosphatase 71, Total Protein 5.7, Albumin 3.3 01/15/22 10:40: Glucometer 138 01/15/22 15:33: Glucometer 149 01/15/22 21:12: Glucometer 137 01/16/22 04:48: White Blood Count 12.4, Red Blood Count 2.27, Hemoglobin 7.1, Hematocrit 22, Mean Corpuscular Volume 98, Mean Corpuscular Hemoglobin 31, Mean Corpuscular Hemoglobin Concent 32, Red Cell Distribution Width 16.0, Platelet Count 233, Mean Platelet Volume 10.1, Immature Granulocyte % (Auto) 1, Neutrophils (%) (Au to) 79, Lymphocytes (%) (Auto) 12, Monocytes (%) (Auto) 7, Eosinophils (%) (Auto) 1, Basophils (%) (Auto) 1, Neutrophils # (Auto) 9.8, Lymphocytes # (Auto) 1.4, Monocytes # (Auto) 0.8, Eosinophils # (Auto) 0.2, Basophils # (Auto) 0.1, Immature Granulocyte # (Auto) 0.1, Sodium Level 144, Potassium Level 4.3, Chloride Level 111, Carbon Dioxide Level 22, Anion Gap 11, Blood Urea Nitrogen 27, Creatinine 1.39, Estimat Glomerular Filtration Rate 42, BUN/Creatinine Ratio 19, Glucose Level 137, Calcium Level 8.3, Corrected Calcium 8.9, Total Bilirubin 0.6, Aspartate Amino Transf (AST/SGOT) 9, Alanine Aminotransferase (ALT/SGPT) < 6, Alkaline Phosphatase 70, Total Protein 5.7, Albumin 3.2 01/16/22 11:20: Glucometer 140 01/16/22 15:21: Glucometer 173 01/16/22 20:26: Glucometer 162 01/17/22 05:46: Glucometer 121 01/17/22 05:56: White Blood Count 9.1, Red Blood Count 2.67, Hemoglobin 8.2, Hematocrit 26, Mean Corpuscular Volume 96, Mean Corpuscular Hemoglobin 31, Mean Corpuscular Hemoglobin Concent 32, Red Cell Distribution Width 15.7, Platelet Count 244, Mean Platelet Volume 10.0, Immature Granulocyte % (Auto) 1, Neutrophils (%) (Auto) 70, Lymphocytes (%) (Auto) 18, Monocytes (%) (Auto) 7, Eosinophils (%) (Auto) 4, Basophils (%) (Auto) 1, Neutrophils # (Auto) 6.3, Lymphocytes # (Auto) 1.6, Monocytes # (Auto) 0.6, Eosinophils # (Auto) 0.4, Basophils # (Auto) 0.1, Immature Granulocyte # (Auto) 0.1, Sodium Level 140, Potassium Level 4.2, Chloride Level 107, Carbon Dioxide Level 22, Anion Gap 11, Blood Urea Nitrogen 22, Creatinine 1.41, Estimat Glomerular Filtration Rate 41, BUN/Creatinine Ratio 16, Glucose Level 132, Calcium Level 8.5, Corrected Calcium 9.1, Total Bilirubin 0.7, Aspartate Amino Transf (AST/SGOT) 11, Alanine Aminotransferase (ALT/SGPT) < 6, Alkaline Phosphatase 75, Total Protein 6.0, Albumin 3.3 01/17/22 11:01: Glucometer 163 01/17/22 15:09: Glucometer 221 01/17/22 17:04: Lab Scanned Report Transfusion Reaction Form 01/17/22 20:44: Glucometer 156 01/18/22 05:21: Glucometer 133 01/18/22 05:55: White Blood Count 8.2, Red Blood Count 2.58, Hemoglobin 8.0, Hematocrit 24, Mean Corpuscular Volume 94, Mean Corpuscular Hemoglobin 31, Mean Corpuscular Hemoglobin Concent 33, Red Cell Distribution Width 15.0, Platelet Count 251, Mean Platelet Volume 10.0, Immature Granulocyte % (Auto) 1, Neutrophils (%) (Au to) 67, Lymphocytes (%) (Auto) 17, Monocytes (%) (Auto) 9, Eosinophils (%) (Auto) 5, Basophils (%) (Auto) 1, Neutrophils # (Auto) 5.5, Lymphocytes # (Auto) 1.4, Monocytes # (Auto) 0.8, Eosinophils # (Auto) 0.4, Basophils # (Auto) 0.1, Immature Granulocyte # (Auto) 0.1, Sodium Level 139, Potassium Level 4.0, Chloride Level 106, Carbon Dioxide Level 23, Anion Gap 10, Blood Urea Nitrogen 18, Creatinine 1.39, Estimat Glomerular Filtration Rate 42, BUN/Creatinine Ratio 13, Glucose Level 141, Calcium Level 8.5, Corrected Calcium 9.1, Total Bilirubin 0.6, Aspartate Amino Transf (AST/SGOT) 15, Alanine Aminotransferase (ALT/SGPT) 7, Alkaline Phosphatase 81, Total Protein 5.9, Albumin 3.3 01/18/22 11:14: Glucometer 230 Discharge Home Medications: Active Scripts Active Sucralfate 1 Gm Tablet 1 Gm PO ACHS Pantoprazole Sodium 40 Mg Tablet.dr 40 Mg PO BID Ondansetron Odt (Ondansetron) 4 Mg Tab.rapdis 4 Mg PO Q6H PRN Reported Atorvastatin Calcium 40 Mg Tablet 40 Mg PO BID Carvedilol 12.5 Mg Tablet 25 Mg PO BID TAKES 2 (12.5MG) TABS Citalopram HBr (Citalopram Hydrobromide) 20 Mg Tablet 20 Mg PO DAILY Glyburide 1.25 Mg Tablet 1.25 Mg PO BID WITH MEALS Clopidogrel (Clopidogrel Bisulfate) 75 Mg Tablet 75 Mg PO DAILY Iron 18 Mg Tablet 18 Mg PO DAILY Vitamin D3 (Cholecalciferol (Vitamin D3)) 25 Mcg Tablet 25 Mcg PO DAILY Instructions to patient/family Please see electronic discharge instructions given to patient. Diagnosis/Problems Diagnosis/Problems (1) Syncope Status: Acute Qualifiers: Qualified Codes: R55 - Syncope and collapse (2) Hematemesis Status: Acute Qualifiers: Qualified Codes: K92.0 - Hematemesis (3) CAD (coronary artery disease) (4) Pulmonary arterial hypertension (5) CKD (chronic kidney disease) Clinical Quality Measures DVT/VTE Risk/Contraindication: Contraindications-Pharm: Other *list below* Other: JERZY Zaragoza DO Jan 18, 2022 11:28
[2022-01-18 11:51] VITALS: BP 133/71
[2022-01-18 14:29] VITALS: BP 133/71
== END 2022-01-18 14:32 | disposition home or self-care (01) | DRG 378 ==
LOC: EDUNIT# 10:23 → ER 10:25 → ICU 12:09 → 4TH 01-16 13:00
PROVIDERS: ADMIT Internal Medicine; ATTEND Internal Medicine
PROC: 0DJD8ZZ Inspection of Lower Intestinal Tract, Via Natural or Artificial Opening Endoscopic (ICD-10-PCS; 2022-01-15)
PROC: 0DB48ZX Excision of Esophagogastric Junction, Via Natural or Artificial Opening Endoscopic, Diagnostic (ICD-10-PCS; principal; 2022-01-15 13:50)
PROC: 0DB68ZX Excision of Stomach, Via Natural or Artificial Opening Endoscopic, Diagnostic (ICD-10-PCS; 2022-01-15 13:50)
PROC: 5A09357 Assistance with Respiratory Ventilation, Less than 24 Consecutive Hours, Continuous Positive Airway Pressure (ICD-10-PCS; 2022-01-16)
DX: K25.4 Chronic or unspecified gastric ulcer with hemorrhage (principal); D62 Acute posthemorrhagic anemia; N17.9 Acute kidney failure, unspecified; Z68.42 Body mass index [BMI] 45.0-49.9, adult; E11.22 Type 2 diabetes mellitus with diabetic chronic kidney disease; I12.9 Hypertensive chronic kidney disease with stage 1 through stage 4 chronic kidney disease, or unspecified chronic kidney disease; G47.33 Obstructive sleep apnea (adult) (pediatric); K44.9 Diaphragmatic hernia without obstruction or gangrene; I95.9 Hypotension, unspecified; I27.20 Pulmonary hypertension, unspecified; S70.11XA Contusion of right thigh, initial encounter; W18.30XA Fall on same level, unspecified, initial encounter; S01.111A Laceration without foreign body of right eyelid and periocular area, initial encounter; E87.5 Hyperkalemia; M19.90 Unspecified osteoarthritis, unspecified site; E78.00 Pure hypercholesterolemia, unspecified; F32.A Depression, unspecified; K21.00 Gastro-esophageal reflux disease with esophagitis, without bleeding; K29.70 Gastritis, unspecified, without bleeding; K64.8 Other hemorrhoids; K57.30 Diverticulosis of large intestine without perforation or abscess without bleeding; Z79.82 Long term (current) use of aspirin; Z79.01 Long term (current) use of anticoagulants; N18.31 Chronic kidney disease, stage 3a; E66.01 Morbid (severe) obesity due to excess calories
CPT/HCPCS: 36415; 70450; 71045; 80053; 81000; 82274; 82607; 82947; 83540; 85014; 85018; 85025; 85027; 86850; 86900; 86901; 86920; 87081; 93005; 96374

== ENCOUNTER → 2022-01-25 | Outpatient (CLI) | payer MEDICARE ==
[~2022-01-25] MED LIST changes: +ASPI-999 PO; +ATOR40TA70 PO; +CARV12.53 PO; +ONDA4TAB11 PO; +PANT40TA52 PO; +SUCR1TAB PO
[2022-01-25 11:04] LABS: HEMATOCRIT 27 % (35-52); HEMOGLOBIN 8.8 g/dL (11.5-16.0); MEAN CORPUSCULAR HEMOGLOBIN 31 pg (25-34); MEAN CORPUSCULAR HGB CONC 32 g/dL (32-36); MEAN CORPUSCULAR VOLUME 95 fL (80-99); MEAN PLATELET VOLUME 9.3 fL (9.0-12.2); PLATELET COUNT 342 10^3/uL (130-400); WHITE BLOOD COUNT 7.1 10^3/uL (4.3-11.0)
[2022-01-25 11:20] LABS: CALCIUM 8.8 MG/DL (8.5-10.1); CREATININE SERUM 1.35 MG/DL (0.60-1.30)
== END ==
LOC: LAB 10:40
PROVIDERS: ATTEND Nurse Practitioner Family
DX: N18.31 Chronic kidney disease, stage 3a (principal); D62 Acute posthemorrhagic anemia
CPT/HCPCS: 36415; 80048; 85027

== ENCOUNTER 2022-04-17 13:10 | Outpatient (RCR) | payer MEDICARE ==
[2022-04-08] MEDS: IRON SUCROSE 200 MG/10 ML (VENOFER) VIAL IV SCH (13:38)
[2022-04-08 13:50] VITALS: BP 145/63
[2022-04-10 13:15] VITALS: BP 162/64
[2022-04-10] MEDS: IRON SUCROSE 200 MG/10 ML (VENOFER) VIAL IV SCH (13:35)
[2022-04-12 12:51] VITALS: BP 130/65
[2022-04-12] MEDS: IRON SUCROSE 200 MG/10 ML (VENOFER) VIAL IV SCH (13:16)
[2022-04-15 12:51] VITALS: BP 149/69
[2022-04-15] MEDS: IRON SUCROSE 200 MG/10 ML (VENOFER) VIAL IV SCH (13:13)
[~2022-04-17] VITALS: Ht 161.3 cm; Wt 116.4 kg
[2022-04-17 13:10] VITALS: BP 153/69
[~2022-04-17 13:10] MED LIST changes: -TRIA1CAP4 PO; +TRIA1CAP84 PO
[2022-04-17] MEDS: IRON SUCROSE 200 MG/10 ML (VENOFER) VIAL IV SCH (13:35)
== END 2022-04-17 14:00 | disposition home or self-care (01) ==
LOC: SDC 13:10
PROVIDERS: ATTEND Internal Medicine
DX: E61.1 Iron deficiency (principal)
CPT/HCPCS: 96365

== ENCOUNTER → 2022-10-16 | Outpatient (CLI) | payer MEDICARE ==
--- NOTE | 2022-10-16 16:51 | Diagnostic Imaging Report ---
EXAMINATION: Lumbar spine radiographs, 3 views. COMPARISON: None. HISTORY: 66-year-old female, low back pain. FINDINGS: There are five lumbar-type vertebral bodies. There is severe disc height loss at L4-L5 and L2-L3. There is moderate disc height loss at L5-S1 and L3-L4, as well as at L1-L2. There are facet degenerative changes at L5-S1. There is no identified acute compression deformity or fracture. The sacroiliac joints are unremarkable. There are vascular calcifications. There are surgical clips just to the left of midline and also in the right upper quadrant. There are metallic coils overlying the pelvis and surgical clips along the left side of the pelvis. IMPRESSION: 1. Multilevel advanced disc degenerative changes of the lumbar spine with facet degenerative changes also present at L5-S1. 2. No identified compression deformity or fracture. Dictated by: Dictated on workstation # [id number]
== END ==
LOC: RAD 15:01
PROVIDERS: ATTEND Internal Medicine
DX: M47.817 Spondylosis without myelopathy or radiculopathy, lumbosacral region (principal); M51.36 Other intervertebral disc degeneration, lumbar region
CPT/HCPCS: 72100

== ENCOUNTER → 2022-10-22 | Outpatient (CLI) | payer MEDICARE ==
--- NOTE | 2022-10-22 19:47 | Diagnostic Imaging Report ---
Indication: Routine screening. Comparison is made with prior mammograms 10/10/2021 and 10/05/2020. 2-D and 3-D bilateral screening mammography was performed with CAD. Scattered fibroglandular densities are identified bilaterally. A benign nodule outer left breast is stable. No spiculated mass or malignant-appearing microcalcifications are seen. Axillae are unremarkable. IMPRESSION: BI-RADS Category 2 No mammographic features suspicious for malignancy are identified. ACR BI-RADS Category 2: Benign findings. Result letter will be mailed to the patient. Note: At least 10% of breast cancer is not imaged by mammography. Dictated by: Dictated on workstation # [id number]
== END ==
LOC: RAD 13:32
PROVIDERS: ATTEND Internal Medicine
DX: Z12.31 Encounter for screening mammogram for malignant neoplasm of breast (principal)
CPT/HCPCS: 77063; 77067

== ENCOUNTER → 2022-10-24 | Outpatient (CLI) | payer MEDICARE ==
--- NOTE | 2022-10-24 11:34 | Diagnostic Imaging Report ---
PROCEDURE: CT abdomen and pelvis without contrast. TECHNIQUE: Multiple contiguous axial images were obtained through the abdomen and pelvis without the use of intravenous contrast. Auto Exposure Controls were utilized during the CT exam to meet ALARA standards for radiation dose reduction. INDICATION: Lower abdominal and pelvic pain. Comparison is made prior CT 12/28/2019. FINDINGS: Lung bases are clear. There is a large hiatal hernia. The liver is unremarkable. Gallbladder is surgically absent. Pancreas and spleen are unremarkable. Right adrenal gland and right kidney are unremarkable. Left kidney again appears surgically absent. Calcification in the left renal fossa is stable. Left adrenal gland may be surgically absent as well. Aorta is nonaneurysmal. Bowel loops are normal caliber. There is diverticulosis of the descending and sigmoid colon but no evidence of acute radiculitis. No free fluid or fluid collection is identified. Bladder and uterus are unremarkable. Kidneys are unremarkable. IMPRESSION: Stable CT abdomen and pelvis without contrast when compared exam from 12/28/2019. There is a large hiatal hernia. Uncomplicated diverticulosis is again noted. No new abnormality is detected. Dictated by: Dictated on workstation # [id number]
== END ==
LOC: RAD 10:33
PROVIDERS: ATTEND Surgery
DX: K44.9 Diaphragmatic hernia without obstruction or gangrene (principal); K57.90 Diverticulosis of intestine, part unspecified, without perforation or abscess without bleeding
CPT/HCPCS: 74176

== ENCOUNTER → 2023-08-05 | Outpatient (CLI) | payer MEDICARE ==
[~2023-08-05] VITALS: Ht 157 cm; Wt 122.0 kg
[~2023-08-05] MED LIST changes: +CATHETER FLUSH 10 ML SYR IVP PRN; +REGADENOSON 0.4 MG/5 ML SYR IV ONE
[2023-08-05 09:17] VITALS: BP 192/81
--- NOTE | 2023-08-07 20:19 | STRESS TEST ---
DATE OF SERVICE: 08/05/2023 RESTING AND POST REGADENOSON TECHNETIUM-99M TETROFOSMIN SPECT CT IMAGING ORDERING PHYSICIAN: Andreina Cope APRN. PRIMARY PHYSICIAN: Dr. Staley. CLINICAL DIAGNOSIS: Chest discomfort. Baseline images were carried out after injection of 10.57 mCi technetium-99m tetrofosmin. This was followed by 0.4 mg regadenoson and 30.7 mCi of technetium-99m tetrofosmin for stress imaging. The electrocardiogram showed sinus rhythm at baseline. It did not change significantly with regadenoson infusion. The patient tolerated the procedure well. Review of images at rest and following stress indicates attenuation of the anterolateral wall, both at rest and following regadenoson infusion. This appears to be due to breast artifact. Gated images show normal global left ventricular systolic function with normal regional wall motion, including the anterolateral wall of the left ventricle. CONCLUSIONS: 1. This study does not indicate any distinct evidence of significant ischemia. 2. Normal regional wall motion. 3. Normal global left systolic function with a calculated ejection fraction of 68%. Job ID: [id number] DocumentID: [id number] Dictated Date: 08/07/2023 18:46:10 [employer] Accounts Payable Clerk Date: 08/07/2023 20:17:00 Dictated By: SAQIB GRAY MD; ROMEO; FACP; FACC;
== END ==
LOC: CARD 07:44
PROVIDERS: ATTEND Nurse Practitioner Family
DX: R07.89 Other chest pain (principal)
CPT/HCPCS: 78452; 93017; A9502